=== PATIENT | female | born 1960 | race Caucasian/White ===

== ENCOUNTER 2016-08-28 13:58 | Inpatient (IN) | payer MEDICARE ==
[~2016-08-28] VITALS: Ht 152.4 cm; Wt 48.2 kg
--- NOTE | ~2016-08-28 | PR ---
[place], [place] PROGRESS NOTE NAME: [id number] UNIT #: [id number] ROOM: 425 DOCTOR: SONI RAZA MD,NINO BIRTHDATE: [birth year] DOS: 08/30/2016 PULMONARY FOLLOWUP SUBJECTIVE: The patient was n.p.o. past night and bronchoscopy planned for today. Continuous severe nonproductive cough, wheezing was noted with gradual reduction. Shortness of breath has been still noted, but partially decreased from previously. There was no chest pain. OBJECTIVE: VITAL SIGNS: Normal temperature, respiratory rate 19, heart rate 96, blood pressure 144/73. Pulse oxygen saturation on 6 L nasal cannula 98% saturation. HEENT: Shows no acute change. NECK: Supple. CARDIOVASCULAR: S1, S2 audible. LUNGS: Reduction of the breath sounds with expiratory wheezing was present as previously. ABDOMEN: Soft, nontender. LABORATORY DATA: There were no labs done today. IMPRESSION: 1. The patient with acute ongoing tracheobronchitis and chronic hypoxic respiratory failure, preop for bronchoscopy. 2. Chronic spastic paresis. 3. Chronic hypercapnic respiratory failure as well. PLAN OF TREATMENT: Continue the patient's current therapy plan as previously in progress. Other supportive plan and management to be continued. Usual care. Further treatment changes will be done after the bronchoscopy as necessary. NINO SHAFER MD CM:PNTRANS [id number] NINO RAZA MD 08/30/16 1244 interface
--- NOTE | ~2016-08-28 | PR ---
[place], [place] PROGRESS NOTE NAME: AZAR REYNOSO UNIT #: [id number] ROOM: 425 DOCTOR: SONI RAZA MD,NINO BIRTHDATE: [birth year] DOS: 09/03/2016 SUBJECTIVE: She has been noted comfortable at this time. Coughing has been subsiding. She was started on Bactrim-DS, which has been tolerated without any side effect. The sensitivity results of the strep pneumonia, which was reviewed. OBJECTIVE: VITAL SIGNS: Normal temperature, respirations 18, heart rate 93, blood pressure 121/87. The pulse oxygen saturation recorded on 6 liters nasal cannula 100% saturation. HEENT: Examination shows no acute change. NECK: Supple. CARDIOVASCULAR: S1, S2 is audible. LUNGS: Without any wheeze or crackles. ABDOMEN: Soft, nontender. IMPRESSION: 1. The patient with acute on chronic hypercapnic and hypoxic respiratory failure with exacerbation of chronic obstructive pulmonary disease and acute tracheobronchitis. 2. Strep pneumonia. PLAN OF TREATMENT: Discharge the patient with Bactrim-DS with tapering dose of prednisone and to resume her previous dose of prednisone ____ taken by the patient after completion of tapering prednisone. Outpatient assessment ____. NINO SHAFER MD CM:FANTATRANS [id number] [id number] NINO RAZA MD 09/03/16 1143 interface
--- NOTE | ~2016-08-28 | CON ---
[place], [place] REPORT OF CONSULTATION [id number] UNIT #: [id number] ROOM: 425 DOCTOR: SONI RAZA MDNINO BIRTHDATE: [birth year] DOS: 08/29/2016 PULMONARY CONSULTATION, EVALUATION AND MANAGEMENT CONSULTATION REQUESTED BY: Dr. Elidia Saleh. REASON FOR CONSULTATION: Assess the patient for ongoing acute respiratory complaints. HISTORY OF PRESENT ILLNESS: A 56-year-old white female known to me with a history of end-stage advanced centrilobular emphysema with chronic hypoxic and hypercapnic respiratory failure. The patient with recurrent hospitalizations. The patient contacted my office yesterday. The patient has been seen by the home health nursing staff and noted increased respiratory symptom. The symptom has been noted with increased coughing, chest congestion with wheezing as well as increase in the shortness of breath. The patient was also feeling quite a bit of rattling in the chest ____ secretions and inability to expectorate sputum. She came into the Emergency Room upon my advice as well. The patient has been assessed and hospitalized for medical management of acute exacerbation of COPD. She also noted malfunction of the electricity at home and the air conditioner not working for 12 hours or so and that has also made worsening of the respiratory symptoms. REVIEW OF SYSTEMS: CONSTITUTIONAL: Fatigue and tiredness noted. Denies symptoms of fever or chills. EYES: Denies burning, redness, tenderness. EAR, NOSE, THROAT: Denies sore throat, hoarseness, otalgia, postnasal drainage or epistaxis. CARDIOVASCULAR: Denies anginal pain, edema or pain of the lower extremities with palpitations. GASTROINTESTINAL: Denies dysphagia, nausea, vomiting, diarrhea, abdominal pain, hematemesis, melena, or hematochezia. GENITOURINARY: Denies dysuria, suprapubic pain, or hematuria. CENTRAL NERVOUS SYSTEM: History of chronic spastic paresis of the lower extremity with a waddling gait. There were no symptoms of seizures, tingling sensation or focal neurologic deficit. SKIN: Noted without any lesions, rashes or ulcers. Remaining systems were reviewed and they were noted all negative. PAST MEDICAL HISTORY: The patient was noted with history of: 1. Severe centrilobular emphysema. 2. Chronic hypoxic respiratory failure, use of oxygen 5 liters nasal cannula. 3. Chronic hypercapnic respiratory failure. 4. Uncomplicated severe persistent bronchial asthma. 5. Recurrent hospitalizations. 6. Chronic low BMI and muscle mass loss. 7. Migrainous headache. 8. Spastic paresis. [place], [place] REPORT OF CONSULTATION NAME: AZAR REYNOSO UNIT #: [id number] ROOM: 425 DOCTOR: SONI RAZA MD,NINO BIRTHDATE: [birth year] 9. Pneumothorax on the left side with left chest tube thoracostomy and chemical pleurodesis with current pneumothorax requiring VATS procedure and management with chemical pleurodesis, redone in 2014. 10. Restless legs syndrome. 11. Anxiety disorder. 12. Allergic rhinitis. 13. Osteoporosis. 14. History of deep venous thrombosis, which has been noted in June 2016, currently treated with chronic anticoagulation with Eliquis. 15. History of several compression fractures of the thoracic spine. 16. History of chronic prednisone dependency. PAST SURGICAL HISTORY: 1. Several bronchoscopies in the past. 2. Benign cyst removal from multiple parts of the body. 3. Chest tube thoracostomy on the left side. 4. VATS procedure with chemical pleurodesis for the patient with persistent air leak in 2014. 5. Past intubation and mechanical ventilation. 6. MediPort insertion. FAMILY HISTORY: The patient's mother at the age of 5757 years old with complication of COPD and emphysema. Father at the age of 7272 years old with complication of congestive heart failure. SOCIAL HISTORY: The patient is and lives at home. Smoking started at age of [age] years old, 2 pack of cigarettes per day that has been discontinued a few years ago. Denies history of alcohol use, illicit drug use or occupation-related pulmonary exposure. MEDICATIONS: This patient's current administered medications were noted as use of Eliquis, Fosamax, verapamil, Topamax, Daliresp, potassium chloride, Singulair, citalopram, vitamin D, Bumex, Incruse Ellipta, Breo Ellipta, omeprazole, Solu-Medrol intravenously, fluticasone nasal spray, albuterol sulfate with a nebulizer, oral prednisone 10 mg daily, IV doxycycline and other p.r.n. medication administration. DRUG ALLERGY HISTORY: 1. IMIPENEM. 2. CEFEPIME. PHYSICAL EXAMINATION: GENERAL: A 56-year-old white female, currently noted awake and alert without any distress. Height of 5 feet, weight of 106 pounds, BMI 20.7. VITAL SIGNS: Normal temperature, respirations 16-20, heart rate of 90-80, blood pressure 119/62 to 114/66. Pulse oxygen saturation on 6 L nasal cannula was 100% saturation. HEENT: Head was atraumatic. Eyes nonicteric. NECK: Supple. CARDIOVASCULAR: S1, S2 audible. [place], [place] REPORT OF CONSULTATION NAME: AZAR REYNOSO UNIT #: [id number] ROOM: 425 DOCTOR: SONI RAZA MD,NINO BIRTHDATE: [birth year] LUNGS: Noted with general reduction in breath sounds bilaterally with expiratory wheezing. There were no crackles. ABDOMEN: Flat, soft, nontender. EXTREMITIES: Loss of muscle mass. There was no edema, clubbing, cyanosis. CENTRAL NERVOUS SYSTEM: The patient was noted without any gross focal deficit. Chronic spastic paresis was noted. LABORATORY DATA: Chest x-ray, 2-views, was done in the Emergency Room yesterday, the patient was noted with changes of COPD with the chronic density and scarring of the left upper lobe remains unchanged. No acute additional abnormalities. CMP yesterday, glucose 128, BUN and creatinine normal. Remaining CMP was normal. CBC on 08/28/2016, hemoglobin 9.5, hematocrit 33.2, platelet count of 383,000. IMPRESSION: 1. Recurrent acute exacerbation of chronic obstructive pulmonary disease with acute tracheobronchitis. 2. Deep venous thrombosis of the lower extremity, on anticoagulation with Eliquis. 3. Chronic hypercapnic hypoxic respiratory failure, remains the same. 4. Acute tracheobronchitis. 5. Impacted mucus. The patient's airway was suspected because of severe nonproductive cough and chest congestion. 6. Chronic low body mass index as well. PLAN OF TREATMENT: Continue on noninvasive ventilator from the home. Continue current dose of steroids, bronchodilators and antibiotics. Therapeutic bronchoscopy planned to be done in the morning. Hold of Eliquis for bronchoscopy. Continuation of the other previous therapy and plan of management as in progress with usual care. Supportive care, other treatments as in progress. Chronic changes noted in the left upper lung with past surgical intervention for the management of pneumothorax and VATS procedure. Other supportive plan of therapy and care. Usual medical management. Thanks for allowing me to participate in the care of this patient. NINO SHAFER MD CM:CONSTR:REPORT OF CONSULTATION 1249 08/29/16 1451 interface
--- NOTE | ~2016-08-28 | PR ---
[place], [place] PROGRESS NOTE NAME: AZAR REYNOSO UNIT #: [id number] ROOM: 425 DOCTOR: DARCIE MULLIGAN MD BIRTHDATE: [birth year] DOS: 08/31/2016 SUBJECTIVE: The patient is still short of breath with improving. OBJECTIVE: VITAL SIGNS: Blood pressure 128/72, heart rate of 99 beats per minute, breathing 18 times per minute, temperature 98 degrees Fahrenheit. GENERAL: The patient is well developed and appropriate for usual state of health in no apparent distress. HEENT: Pupils equal, round, and reactive to light. EOMI. There is no scleral icterus. NECK: C-spine is soft and supple, there is no meningismus. There is no cervical lymphadenopathy. LUNGS: Chest congestion and expiratory wheezing all over in the lungs with decreased breath sounds. HEART: Regular rate and rhythm, no murmurs, clicks, rubs or gallops. ABDOMEN: Soft, nontender, nondistended. There are bowel sounds in all four quadrants. No rebound or guarding. EXTREMITIES: There is no peripheral cyanosis or edema. No focal swelling or erythema. NEUROLOGIC: The patient moves all four extremities with 5/5 strength. Cranial nerves II-XII are intact. Normal gait. Alert and oriented. SKIN: There is no apparent rash or petechiae. HEME/LYMPHATIC: There is no evidence of excessive bruising or lymphedema. PSYCHIATRIC: The patient does not appear anxious or depressed. IMPRESSION: 1. The patient with exacerbation of severe underlying chronic obstructive pulmonary disease, improving with corticosteroids, antibiotics and oxygen and Dr. Gibbons, the public safety dispatcher, is following her and considering a bronchoscopy to clear her airways and get good sputum specimens. 2. Chronic respiratory failure and oxygen dependence. 3. Generalized anxiety disorder. 4. Major depression, recurrent, mild. Patient takes Lexapro. 5. Postmenopausal osteoporosis. The patient on treatment. [place], [place] PROGRESS NOTE NAME: AZAR REYNOSO UNIT #: [id number] ROOM: 425 DOCTOR: DARCIE MULLIGAN MD BIRTHDATE: [birth year] DARCIE MULLIGAN MD CM:PNTRANS [id number] DARCIE MULLIGAN MD 09/01/16 0242 interface
--- NOTE | ~2016-08-28 | PR ---
[place], [place] PROGRESS NOTE [id number] UNIT #: [id number] ROOM: 425 DOCTOR: GENEVA MCKNIGHT MD BIRTHDATE: [birth year] DOS: SUBJECTIVE: The patient is doing fine without any complaints this morning, other than aches and pains. Dr. Gibbons has scheduled her for a bronchoscopy this morning. OBJECTIVE: VITAL SIGNS: Graphic trend shows pressure 125/82, pulse of 86, respirations 20, temperature 97.8. LUNGS: Diminished breath sounds, a few scattered wheezes heard this morning. HEART: Regular. ABDOMEN: Obese. EXTREMITIES: Without any edema. ASSESSMENT AND PLAN: 1. Acute exacerbation of chronic obstructive pulmonary disease, improving very slowly. 2. Acute tracheobronchitis. Dr. Gibbons plans to do a bronchoscopy, should help with the identification of bacteria. 3. Spastic paresis. The patient requested pain medications. Since she is n.p.o., I dose of Dilaudid will be given today. GENEVA MCKNIGHT MD CM:PNTRANS [phone] GENEVA MCKNIGHT MD 08/30/162235 interface
--- NOTE | ~2016-08-28 | PR ---
[place], [place] PROGRESS NOTE NAME: AZAR REYNOSO UNIT #: [id number] ROOM: 425 DOCTOR: SONI RAZA MD,NINO BIRTHDATE: [birth year] DOS: 09/02/2016 SUBJECTIVE: She has been continued with current plan of treatment at this time without any changes. Denies symptoms of chest pain or abdominal pain, chest congestion. Cough has been noted at times and productive sometimes. Denies symptoms of chest pain. Shortness of breath and wheezing were noted decreased. OBJECTIVE: VITAL SIGNS: Normal temperature, respiratory rate 18, heart rate 92, blood pressure 120/60 to 107/75. Pulse ox saturation on 6 L nasal cannula 98% saturation. HEENT: Examination shows head was atraumatic. Eyes nonicterus. NECK: Supple. CARDIOVASCULAR: S1, S2 audible. LUNGS: Noted with question of wheezing, no crackles. ABDOMEN: Soft, nontender. LABORATORY DATA: Culture of the bronchial washing was noted essentially with findings of strep pneumonia, heavy growth was noted, pansensitive species. IMPRESSION: The patient with acute on chronic hypercapnic hypoxic respiratory failure. The patient with acute exacerbation of chronic obstructive pulmonary disease and acute bacterial bronchitis, strep pneumonia. PLAN OF TREATMENT: Discontinuation of the vancomycin and doxycycline. Start the patient on Bactrim-DS for the medical management of current tracheobronchitis. Also, reduce the dose of Solu-Medrol from today to 30 mg as the b.i.d. dosing. Other supportive therapy, plan and management for the patient as well. Usual care. Further treatment changes will be done based on the progression of the illness. NINO SHAFER MD CM:PNTRANS [phone] NINO RAZA MD 09/02/16 1345 interface
--- NOTE | ~2016-08-28 | PR ---
[place], [place] PROGRESS NOTE NAME: AZAR REYNOSO UNIT #: [id number] ROOM: 425 DOCTOR: SONI RAZA MD,NINO BIRTHDATE: [birth year] DOS: 08/31/2016 SUBJECTIVE: She has a bronchoscopy done yesterday with reduction in symptoms of cough, shortness of breath and wheezing. However, still noted with mild cough for this patient at this time. The shortness of breath and wheezing were noted to decrease. There were no symptoms of chest pain. She was continued on intravenous steroids as well. OBJECTIVE: VITAL SIGNS: For the patient, which has been recorded shows the temperature as normal. Respiratory rate recorded as 18, heart rate of 100, blood pressure 149/87. Pulse oxygen saturation on 6 liters cannula 96-99% saturation recorded. HEENT: Shows no acute change. NECK: Supple. CARDIOVASCULAR: S1, S2 audible. LUNGS: Noted with general reduction of the breath sounds and mild expiratory wheezing. ABDOMEN: Soft, nontender. LABORATORY DATA: Gram stain bronchial washings yesterday, many white blood cells, moderate epithelial cells, many gram-positive cocci in pairs, few gram-positive cocci in chains and moderate gram-positive bacilli. Preliminary culture of the bronchial washing for the patient 24 hours noted normal sari. IMPRESSION: 1. Acute exacerbation of chronic obstructive pulmonary disease with acute tracheobronchitis was noted. 2. Chronic spastic paresis. PLAN OF TREATMENT: Monitor culture results of the bronchial washing. Continue corticosteroids, bronchodilators, antibiotics, and anticoagulation. NINO SHAFER MD CM:PNTRANS [id number] NINO RAZA MD 09/01/16 0040 interface
--- NOTE | ~2016-08-28 | PR ---
[place], [place] PROGRESS NOTE NAME: AZAR REYNOSO UNIT #: [id number] ROOM: 425 DOCTOR: NINO CAR MD BIRTHDATE: [birth year] DOS: 09/01/2016 PULMONARY FOLLOWUP SUBJECTIVE: She has been noted comfortable at this time with the reduction of the respiratory complaints. The patient denies symptoms of chest pain or abdominal pain. Continue intravenous antibiotics. Heavy growth of strep pneumonia for this patient was noted for this patient in the bronchial washings. OBJECTIVE: VITAL SIGNS: The patient showed normal temperature, respiratory rate 18, heart rate 109, blood pressure 138/84. Pulse oxygen saturation on 6 liters nasal cannula 99% saturation recorded. HEENT: Shows no acute change. NECK: Supple. CARDIOVASCULAR: S1, S2 audible. LUNGS: The patient was noted with moderate reduction of the breath sounds bilaterally with mild expiratory wheezing. ABDOMEN: Soft, nontender. LABORATORY DATA: Culture of the bronchial washing noted heavy growth of strep pneumonia for this patient with pending sensitivity results. IMPRESSION: 1. The patient with ongoing acute severe tracheobronchitis status post bronchoscopy strep pneumonia. 2. History of chronic hypoxic respiratory failure, remains on the oxygen supplementation. PLAN OF TREATMENT: No changes in the plan of management at this time. The patient is already getting intravenous steroids as well as the doxycycline. I will add on the vancomycin until the sensitivity results will be available. Supportive therapy, plan of management. Usual care. [place], [place] PROGRESS NOTE NAME: AZAR REYNOSO UNIT #: [id number] ROOM: 425 DOCTOR: NINO CAR MD BIRTHDATE: [birth year] NINO SHAFER MD CM:PNTRANS [phone] 24 NINO RAZA MD 09/01/162223 interface
--- NOTE | ~2016-08-28 | WRIGHTHP ---
[place], [place] PATIENT HISTORY AND PHYSICAL EXAM NAME: AZAR REYNOSO [facility] #: [id number] UNIT #: [id number] ROOM: 425 DOCTOR: GENEVA MCKNIGHT MD BIRTHDATE: [birth year] DOS: 08/29/2016 HISTORY OF PRESENT ILLNESS: The patient is 56 years old. The patient is complaining of shortness of breath. The visiting nurses arrived at the house today. She was noted to have increasing shortness of breath informed Dr. Gibbons who advised the patient to be sent to the Emergency Room for evaluation. The patient said that she has had increasing shortness of breath that lasted 4-5 days, has a slight cough, but unable to cough up any mucus, does not have any fever or chills. Does not have any chest pains, palpitations or leg edema. PAST MEDICAL HISTORY: Significant for, 1. Spastic paraparesis with chronic pain. 2. Chronic respiratory failure, oxygen dependent. 3. Chronic obstructive lung disease. 4. Generalized anxiety disorder. MEDICATIONS: She is on are incruse Ellipta, Breo Ellipta, albuterol, fluticasone, Tylenol 650 q. 6, Fosamax 70 once weekly, Xanax 0.5 t.i.d., Eliquis 5 daily, Bumex 1.5 daily, vitamin D 5000 units daily, Flexeril 10 b.i.d., Lexapro 20 daily, Levaquin 500 daily, Singulair 10 daily, morphine 5 q.4 hours p.r.n., omeprazole 20 daily, MiraLax 17 grams daily, potassium 20 daily, prednisone 10 mg daily, Daliresp 500 mcg daily, ReQuip 0.25 at bedtime, Topamax 25 daily and verapamil 120 daily. SOCIAL HISTORY: Nonsmoker. She lives at home with her . PHYSICAL EXAMINATION: GENERAL: She is awake, alert and oriented. VITAL SIGNS: Blood pressure is 118/62, pulse of 95, respirations 20, temperature 98.2. LUNGS: Diminished breath sounds. HEART: Regular. ABDOMEN: Obese, soft, nontender. EXTREMITIES: Trace edema noticed bilaterally. ASSESSMENT AND PLAN: 1. Acute exacerbation of chronic obstructive pulmonary disease. The patient is placed on IV steroids and antibiotics. Dr. Gibbons has been consulted. 2. Acute tracheobronchitis. Antibiotics have been ordered. Dr. Gibbons to make the decision on bronchoscopy. 3. Spastic with chronic pain, controlled, pain medications to be ordered p.r.n. [place], [place] PATIENT HISTORY AND PHYSICAL EXAM NAME: AZAR REYNOSO UNIT #: [id number] ROOM: 425 DOCTOR: GENEVA MCKNIGHT MD BIRTHDATE: [birth year] GENEVA MCKNIGHT MD CM:HISPHYS:PATIENT HISTORY AND PHYSICAL EXAMINATION 1346 1555 GENEVA MCKNIGHT MD 08/29/16 1553 interface
--- NOTE | ~2016-08-28 | DS ---
[place], [place] DISCHARGE SUMMARY [id number] UNIT #: [id number] ROOM: 425 DOCTOR: GENEVA MCKNIGHT MD BIRTHDATE: [birth year] DOS: 09/03/2016 DIAGNOSES: 1. Acute tracheobronchitis. 2. Acute exacerbation of chronic obstructive pulmonary disease. 3. Bronchoscopy with strep pneumonia in the sputum. 4. Spastic paraparesis. 5. Chronic pain. 6. Chronic respiratory failure, oxygen dependent. 7. Generalized anxiety disorder. MEDICATIONS: Same as on admission. New prescriptions given were Bactrim DS twice daily for 7 days and tapering dose of prednisone. HOSPITAL COURSE: This patient is very well known to us, comes in with complaints of difficulty breathing. The patient was advised by Dr. Gibbons to come to the emergency room. Upon admission, the patient was evaluated in the ER, was admitted. After admission, the patient was placed on IV steroids, antibiotics, breathing treatments and her home medications. She underwent the bronchoscopy. Bronchoscopy showed strep pneumoniae for which the patient was placed on Bactrim. The patient is not having any other new problems, so plan is to discharge her to home today. Follow up with Dr. Gibbons as an outpatient. GENEVA MCKNIGHT MD CM:HENRY [id number] GENEVA MCKNIGHT MD 09/03/16 1017 interface
--- NOTE | ~2016-08-28 | PR ---
[place], [place] PROGRESS NOTE NAME: AZAR REYNOSO UNIT #: [id number] ROOM: 425 DOCTOR: GENEVA MCKNIGHT MD BIRTHDATE: [birth year] DOS: SUBJECTIVE: The patient feels really good and is not having any complaints. OBJECTIVE: VITAL SIGNS: Graphic trend shows a pressure 120/70, pulse of 96, respirations 20, temperature 97.8. LUNGS: Clear. HEART: Regular. ABDOMEN: Soft. EXTREMITIES: Without any edema. ASSESSMENT AND PLAN: 1. Acute tracheobronchitis, improving. 2. Bronchoscopy showing strep pneumoniae for which Bactrim-DS was started. The patient is stable and can be discharged to home today to be followed up with Dr. Gibbons as an outpatient. GENEVA MCKNIGHT MD CM:PNRUBÉN [id number] GENEVA MCKNIGHT MD 09/03/16 0945 interface
--- NOTE | ~2016-08-28 | PR ---
[place], [place] PROGRESS NOTE [id number] UNIT #: [id number] ROOM: 425 DOCTOR: DARCIE MULLIGAN MD BIRTHDATE: [birth year] DOS: 09/01/2016 SUBJECTIVE: The patient continues to be short of breath. PHYSICAL EXAMINATION: VITAL SIGNS: Blood pressure 120/79, heart rate 100 beats per minute, breathing 18 times per minute, temperature 98 degrees Fahrenheit. IMPRESSION: 1. Acute exacerbation of chronic obstructive pulmonary disease and tracheobronchitis, continues to be treated with antibiotics. The patient on doxycycline and vancomycin. 2. Sputum cultures growing Streptococcus pneumoniae. 3. The patient is status post bronchoscopy. 4. Acute over chronic respiratory failure and oxygen dependence and end-stage lung disease. 5. Generalized anxiety disorder, being treated and controlled. 6. Major depression, recurrent, mild being treated with Lexapro. 7. Postmenopausal osteoporosis, to be followed and treated. DARCIE MULLIGAN MD CM:PNTRANS [phone] 17 DARCIE MULLIGAN MD 09/01/16 2217 interface
--- NOTE | ~2016-08-28 | PR ---
[place], [place] PROGRESS NOTE NAME: [facility]O [facility] [id number] UNIT #: [id number] ROOM: 425 DOCTOR: GENEVA MCKNIGHT MD BIRTHDATE: [birth year] DOS: 09/02/2016 SUBJECTIVE: The patient is sleeping in her bed, did wake up community health consultant, does not have any complaints today. Cough and shortness of breath has improved. OBJECTIVE: VITAL SIGNS: Graphic trend shows that she is afebrile. Blood pressure is 107/75, pulse of 96, respirations 18, temperature 97.6. LUNGS: Diminished breath sounds, but clear. HEART: Regular. ABDOMEN: Soft, scaphoid. EXTREMITIES: Without any edema. LABORATORY DATA: Cultures, bronch cultures, final is no bacterial growth. ASSESSMENT AND PLAN: 1. Acute exacerbation of chronic obstructive pulmonary disease, improving. 2. Acute tracheobronchitis, status post bronchoscopy. So far, the cultures are showing Strep pneumoniae, which we could change to Levaquin and discharged to home. I am waiting for Dr. Gibbons's opinion. No sensitivities are available yet, so once we have that, should be able to discharge the patient to home. GENEVA MCKNIGHT MD CM:PNTRANS [id number] GENEVA MCKNIGHT MD 09/02/16 1309 interface
--- NOTE | ~2016-08-28 | PROC NOTE ---
[place], [place] PROCEDURE NOTE NAME: AZAR REYNOSO UNIT #: [id number] ROOM: 425 DOCTOR: SONI RAZA MD,NINO BIRTHDATE: [birth year] DOS: 08/30/2016 PROCEDURE: Fiberoptic bronchoscopy. PREOPERATIVE DIAGNOSIS: The patient with persistent nonresolving cough, which has been noted severe. POSTOPERATIVE DIAGNOSIS: Evidence of tracheobronchitis with moderate impaction of the mucus plugs in the endobronchial tree bilaterally. PROCEDURE DESCRIPTION: Informed consent obtained from the patient. The patient was brought to the OR and placed in supine position. Conscious sedation was administered by the Anesthesia Department. After achieving appropriate sedation, airway introduced into the mouth. Bronchoscope advanced into the airway into laryngeal area. Epiglottis and vocal cords were seen. Bronchoscope advanced to the vocal cord and tracheal lumen. Tracheal lumen was noted with moderate amount of thick mucopurulent secretions, which was suctioned out to the sammy level. Right upper, right middle, right lower, left upper, lingular lower lobe bronchi were all examined. Noted mild to moderate infection because of thick mucus. All the secretions suctioned out with the help of normal saline wash and sent for culture. FINDINGS: Acute tracheobronchitis also noted. Postoperative findings will be discussed with the patient once the patient recovers from the effects of acute sedation. NINO SHAFER MD CM:PROCNOTE:PROCEDURE NOTE [id number] NINO RAZA MD
[~2016-08-28 13:58] MED LIST: ADVAIR 250/501 EA INH; ALBUTEROL SULF0.5 M1 NEB; ALBUTEROL0.09 MG/A2 IH; ALBUTEROL2.5 MG/0.5 INH; ALENDRONATE SOD70 M1 PO; AMBIEN5 MG PO; BREO ELLIPTA 11 EACH IH; BREO ELLIPTA 21 EACH IH; CATAPRES-TTS 10.1 MG PO; CELEBREX200 MG PO; CHOLESTEROL PILL; CIPRO500 MG PO; COLACE100 MG PO; COREG3.125 MG PO; CYCLOBENZAPRINE10 MG PO; Clotrimazole Tr10 MG PO; DALI500T PO; DALIRESP500 MC1 PO; DELTASONE10 MG; DELTASONE2.5 M1 PO; DELTASONE20 MG PO; DOXYCYCLINE MO100 M1 PO; DOXYCYCLINE100 M2 PO; DOXYCYCLINE100 M3 PO; DUONEB 3 MG/3 ML3 M1 INH; EXEL13.31 T; FLEXERIL10 MG PO; FLONASE0.05 MG/AC NS; FLOVENT DI50 MCG/ACT IH; FLUTICASON0.05 MG/AC NAS; FOSAMAX70 M1 PO; FOSAMAX70 MG PO; HUMALOG100 UNIT/1 SC; INCRUSE EL62.5 MCG/A IH; LANTUS SOLOS100 U/M1 SC; LEVAQUIN500 M2 PO; LEXAPRO20 MG PO; LIDODERM 5% PATC1 EA TD; LINZESS145 MC1 PO; MIRALAX17 GM PO; MIRALAX17 GM/DOSE PO; MONTELUKAST SOD10 MG PO; NASAL SPRAY30 ML NS; NASAL SPRAY44 ML NS; NEXIUM40 MG PO; NOVAPLUS SOLU-M40 MG IV; OMEPRAZOLE D/R20 MG PO; OMEPRAZOLE20 M2 PO; OXYGEN; PLAVIX75 M1 PO; PREDNICOT10 MG PO; PREDNISONE10 MG PO; PREDNISONE20 MG PO; PREDNISONE5 MG PO; PROAIR HFA0.09 MG/AC IH; REQUIP0.5 MG PO; ROBAXIN750 MG PO; ROPINIROLE HYDRO1 MG PO; SINGULAIR10 M1 PO; SINGULAIR10 MG PO; SPIRIVA18 MCG IH; TOPAMAX25 MG PO; TOPAMAX50 MG PO; TRAMADOL HCL50 MG PO; TYLENOL EXTRA500 M2 PO; TYLENOL EXTRA500 MG PO; VENTOLIN H0.09 MG/AC INH; VIBRAMYCIN100 MG PO; VICODIN 5/500 505 MG PO; VITAMIN C500 M1 PO; VITAMIN D350000 UNIT PO; VITAMIN D50000 I3 PO; XANAX0.25 MG PO; ZITHROMAX250 MG PO; ZOCOR10 MG PO; ZOCOR40 MG PO; ZOLPIDEM5 MG PO; [UNRECOGNIZED DRUG - OTHER] PO
[2016-08-28] MEDS ORDERED: ELIQUIS5 M1 PO (14:17)
[2016-08-28 14:19] VITALS: BP 137/77
[2016-08-28 14:57] LABS: BASO % 0.2 % (0.0-1.0); EOS % 0.2 % (1.0-4.0); HEMATOCRIT 33.2 % (37.0-47.0); HEMOGLOBIN 9.5 g/dl (12.0-16.0); IG # 0.1 10*3/uL (0.0-0.1); LYMPH # 0.9 10*3/uL (1.3-4.4); LYMPH % 9.5 % (27.0-41.0); MEAN CELL VOLUME 81.6 fl (81.0-99.0); MEAN CORPUSCULAR HGB 23.3 pg (27.0-31.0); MEAN CORPUSCULAR HGB CONC 28.6 g/dl (33.0-37.0); MEAN PLATELET VOLUME 10.1 fl (9.6-12.3); MONO # 0.4 10*3/uL (0.1-1.0); MONO % 4.6 % (3.0-9.0); NEUT # 8.2 10*3/uL (2.3-7.9); NEUT % 84.6 % (47.0-73.0); PLATELET COUNT AUTOMATED 383 10*3/uL (130-400); RED BLOOD COUNT 4.07 10*6/uL (4.10-5.10); RED CELL DISTRI WIDTH 17.6 % (0-14.5); WHITE BLOOD COUNT 9.6 10*3/uL (4.8-10.8)
[2016-08-28 15:15] LABS: ALBUMIN 3.4 gm/dl (3.1-4.5); ALKALINE PHOSPHATASE 57 U/L (45-117); BILIRUBIN, TOTAL 0.1 mg/dl (0.2-1.0); BUN 12 mg/dl (7-24); CARBON DIOXIDE 28 mmol/L (21-32); CHLORIDE 105 mmol/L (98-107); EST GLOM FILT AFRICAN AMERICAN > 60 ml/min; GLUCOSE 128 mg/dL (65-99); POTASSIUM 4.4 mmol/L (3.5-5.1); SGOT/AST 23 IU/L (3-35); SGPT/ALT 16 U/L (12-78); SODIUM 144 mmol/L (136-145)
[2016-08-28 15:17] LABS: TROPONIN I < 0.015 ng/ml (<0.045)
[2016-08-28 16:00] VITALS: BP 154/83
[2016-08-28 17:43] VITALS: BP 154/83
[2016-08-28] MEDS ORDERED: BUMEX2.5 MG/10 PO (18:16)
[2016-08-28] MEDS ORDERED: PREDNISONE5 MG PO (18:17)
[2016-08-28] MEDS ORDERED: MORPHINE S10 MG/5 M1 PO (18:19)
[2016-08-28] MEDS ORDERED: TYLENOL325 M2 PO (18:20)
[2016-08-28] MEDS ORDERED: POTASSIUM CHLO20 ME3 PO (18:21)
[2016-08-28] MEDS ORDERED: VERAPAMIL SR120 MG PO (18:22)
[2016-08-28] MEDS ORDERED: DALI500T PO (18:22)
[2016-08-28] MEDS ORDERED: LEVAQUIN500 M2 PO (18:23)
[2016-08-28] MEDS ORDERED: VITAMIN D1000 IU PO (18:23)
[2016-08-28] MEDS ORDERED: ALPRAZOLAM1 M2 PO (18:29)
[2016-08-28 20:00] VITALS: BP 131/65
[2016-08-29] VITALS: BP 119/62
[2016-08-29 04:00] VITALS: BP 108/64
[2016-08-29 08:00] VITALS: BP 114/66
[2016-08-29 12:00] VITALS: BP 118/62
[2016-08-29 16:07] VITALS: BP 112/68
[2016-08-29 20:00] VITALS: BP 113/54
[2016-08-30] VITALS (10 sets, daily range): BP systolic 98–144; BP diastolic 55–82
[2016-08-31] VITALS: BP 104/62
[2016-08-31 08:00] VITALS: BP 126/71; BP 126/72
[2016-08-31 12:00] VITALS: BP 149/87
[2016-08-31 15:05] LABS: ACID FAST SPEC PROCESSING Concentration (.)
[2016-08-31 16:00] VITALS: BP 128/72
[2016-08-31 20:00] VITALS: BP 157/87
[2016-09-01] VITALS: BP 134/76
[2016-09-01 08:00] VITALS: BP 138/84
[2016-09-01 12:00] VITALS: BP 120/79
[2016-09-01 16:00] VITALS: BP 144/71
[2016-09-01 20:00] VITALS: BP 127/73
[2016-09-02] VITALS: BP 107/75
[2016-09-02 08:00] VITALS: BP 128/60; BP 134/78
[2016-09-02 12:00] VITALS: BP 143/90
[2016-09-02 16:00] VITALS: BP 106/74
[2016-09-02 20:00] VITALS: BP 134/81
[2016-09-03] VITALS: BP 125/77
[2016-09-03 08:00] VITALS: BP 131/87
[2016-09-03] MEDS ORDERED: PREDNISONE5 MG PO (08:00)
[2016-09-03] MEDS ORDERED: BACTRIM DS 8001 TA1 PO (08:00)
== END 2016-09-03 10:45 | disposition home health service (06) | DRG 189 ==
LOC: ED 13:58 → 4E 16:02 → EDHOLD 16:02 → 4E 16:28
PROVIDERS: Internal Medicine; Internal Medicine Critical Care Medicine; Physician Assistant
PROC: 0BC88ZZ Extirpation of Matter from Left Upper Lobe Bronchus, Via Natural or Artificial Opening Endoscopic (ICD-10-PCS; principal; 2016-08-30)
PROC: 0BC18ZZ Extirpation of Matter from Trachea, Via Natural or Artificial Opening Endoscopic (ICD-10-PCS; principal; 2016-08-30)
PROC: 0BC58ZZ Extirpation of Matter from Right Middle Lobe Bronchus, Via Natural or Artificial Opening Endoscopic (ICD-10-PCS; principal; 2016-08-30)
PROC: 0BC68ZZ Extirpation of Matter from Right Lower Lobe Bronchus, Via Natural or Artificial Opening Endoscopic (ICD-10-PCS; principal; 2016-08-30)
PROC: 0BC48ZZ Extirpation of Matter from Right Upper Lobe Bronchus, Via Natural or Artificial Opening Endoscopic (ICD-10-PCS; principal; 2016-08-30)
PROC: 0BCB8ZZ Extirpation of Matter from Left Lower Lobe Bronchus, Via Natural or Artificial Opening Endoscopic (ICD-10-PCS; principal; 2016-08-30)
PROC: 0BC98ZZ Extirpation of Matter from Lingula Bronchus, Via Natural or Artificial Opening Endoscopic (ICD-10-PCS; principal; 2016-08-30)
PROC: 0BC28ZZ Extirpation of Matter from Carina, Via Natural or Artificial Opening Endoscopic (ICD-10-PCS; principal; 2016-08-30)
DX: J96.21 Acute and chronic respiratory failure with hypoxia (principal); T17.890A Other foreign object in other parts of respiratory tract causing asphyxiation, initial encounter; I82.409 Acute embolism and thrombosis of unspecified deep veins of unspecified lower extremity; Z99.81 Dependence on supplemental oxygen; J44.1 Chronic obstructive pulmonary disease with (acute) exacerbation; J44.0 Chronic obstructive pulmonary disease with (acute) lower respiratory infection; J96.22 Acute and chronic respiratory failure with hypercapnia; J20.9 Acute bronchitis, unspecified; G89.29 Other chronic pain; F41.1 Generalized anxiety disorder; F17.210 Nicotine dependence, cigarettes, uncomplicated; B95.3 Streptococcus pneumoniae as the cause of diseases classified elsewhere; X58.XXXA Exposure to other specified factors, initial encounter; G83.9 Paralytic syndrome, unspecified; G25.81 Restless legs syndrome; M81.0 Age-related osteoporosis without current pathological fracture; Z88.1 Allergy status to other antibiotic agents; Z88.8 Allergy status to other drugs, medicaments and biological substances; Z82.5 Family history of asthma and other chronic lower respiratory diseases; Z82.49 Family history of ischemic heart disease and other diseases of the circulatory system; Z79.01 Long term (current) use of anticoagulants; Y93.89 Activity, other specified; Y92.89 Other specified places as the place of occurrence of the external cause; Y99.8 Other external cause status

== ENCOUNTER 2017-03-19 10:50 | Inpatient (IN) | payer MEDICARE ==
[~2017-03-19] VITALS: Ht 152 cm; Wt 48.0 kg
--- NOTE | ~2017-03-19 | PROC NOTE ---
[place], [place] PROCEDURE NOTE [facility]: [id number] UNIT #: [id number] ROOM: 512 DOCTOR: SONI RAZA MD,NINO BIRTHDATE: [birth year] DOS: 03/24/2017 PROCEDURE: Bronchoscopy. PREOPERATIVE DIAGNOSIS: Severe ineffective cough where the patient cannot expectorate sputum. POSTOPERATIVE DIAGNOSES: Severe ineffective cough where the patient cannot expectorate sputum with severe impaction of the mucus plug and endobronchial tree bilaterally. There were no endobronchial obstructive lesions noted. COMPLICATIONS: None. BLOOD LOSS: No blood loss. PROCEDURE DESCRIPTION: Informed consent obtained for the patient. She was brought to the OR and placed in supine position. Conscious sedation administered by the Anesthesia Department. After achieving proper sedation, airway introduced into the mouth. Bronchoscope advanced to the airway into the laryngeal area. Epiglottis and vocal cords were seen. The bronchoscope advanced to the vocal cord into tracheal lumen. The tracheal lumen was identified. The vocal cord was noted yellowish in color moving symmetrically with the movements. The tracheal lumen noted with a large amount of thick mucus secretion for patient in the endobronchial tree for this patient, which was suctioned out to the lesvia level. Lesvia noted sharp. Right upper, right middle, right lower, left upper, lingular lower lobe bronchus for the patient all examined. Very thick large plugs of the mucus were present in the endobronchial tree bilaterally without any obstructive lesions. All secretions suctioned out. The patient is sent for cultures. Procedure was well tolerated by the patient without any difficulty. Postoperative finding will be discussed. Once the patient recovered the effects of acute sedation. Based on the bronchoscopy, no change in treatment at this time will be needed. NINO SHAFER MD CM:PROCNOTE:PROCEDURE NOTE [id number] NINO RAZA MD
--- NOTE | ~2017-03-19 | PR ---
[place], [place] PROGRESS NOTE NAME: [facility] [id number] UNIT #: [id number] ROOM: 512 DOCTOR: GENEVA MCKNIGHT MD BIRTHDATE: [birth year] DOS: SUBJECTIVE: The patient is complaining of a lot of back pain. She also has quite a lot of shortness of breath. PHYSICAL EXAMINATION: VITAL SIGNS: Blood pressure is 137/85, pulse of 63, respirations 18, temperature 97.7. LUNGS: Clear. HEART: Regular. ABDOMEN: Soft. EXTREMITIES: Without any edema. BACK: Pain throughout her back, tenderness throughout her back. ASSESSMENT AND PLAN: 1. Acute back pain with compression fracture, superior endplate of T12. Discussed with Dr. Garcia. He will see the patient today and possibly schedule her for a vertebroplasty on Friday. We will keep the Eliquis on hold. 2. Acute exacerbation of chronic obstructive pulmonary disease with spastic paresis with chronic respiratory failure, followed by Dr. Gibbons. BiPAP has been ordered, on maximal treatment plan. GENEVA MCKNIGHT MD CM:PNTRANS [id number] GENEVA MCKNIGHT MD 03/21/17 0938 interface
--- NOTE | ~2017-03-19 | PR ---
[place], [place] PROGRESS NOTE [facility]: [facility] [id number] UNIT #: [id number] ROOM: 512 DOCTOR: GENEVA MCKNIGHT MD BIRTHDATE: [birth year] DOS: SUBJECTIVE: The patient is doing fine without any complaints. Her back pain is much better after the vertebroplasty was done. OBJECTIVE: VITAL SIGNS: Graphic trend shows pressure 154/81, pulse of 72, respirations 18, temperature 97.9. LUNGS: Diminished breath sounds. Scattered wheezes heard bilaterally. HEART: Regular. ABDOMEN: Obese. EXTREMITIES: Without any edema. ASSESSMENT AND PLAN: 1. T8 compression fracture, status post vertebroplasty with improvement in the back pain. 2. Acute exacerbation of chronic obstructive pulmonary disease, on maximal treatment plan. 3. Acute tracheobronchitis, status post bronchoscopy. Bronch cultures so far show normal sari. The patient has significant bronchospasm this morning. He is already on IV steroids, may need a long-term care placement if the bronchospasm does not improve quickly. GENEVA MCKNIGHT MD CM:PNTRANS [phone] GENEVA MCKNIGHT MD 03/25/17 0958 interface
--- NOTE | ~2017-03-19 | PR ---
[place], [place] PROGRESS NOTE NAME: AZAR REYNOSO UNIT #: [id number] ROOM: 512 DOCTOR: NINO CAR MD BIRTHDATE: [birth year] DOS: 03/23/2017 PULMONARY FOLLOWUP SUBJECTIVE: The patient has been noted without any acute respiratory distress at this time. Has not been noted any ongoing acute new respiratory complaints. Continue having symptoms of coughing, chest congestion, inability to expectorate sputum, shortness breath, wheezing remains the same unchanged from yesterday. OBJECTIVE: VITAL SIGNS: Normal temperature, respiratory rate 18, heart rate 90, blood pressure 136/63. Pulse oxygen saturation on 6 liters canula 97% saturation. BiPAP with the same. HEENT: No new change. CARDIOVASCULAR: S1, S2 audible. LUNGS: Moderate decreased breath sounds, expiratory wheezing, no crackles. ABDOMEN: Soft, nontender. Bowel sounds present. EXTREMITIES: The patient was noted without any edema, clubbing or cyanosis. MUSCULOSKELETAL: Shows chronic changes with some kyphosis of the thoracic spine. There were no other deformities. SKIN: Visible skin. No lesions or rashes. GENITOURINARY: Unchanged without any focal. CENTRAL NERVOUS SYSTEM: Unchanged without any focal deficit. LABORATORY DATA: Chest x-ray was described suspicion pulmonary nodule in the lungs with previous parenchymal scarring. IMPRESSION: 1. Questionable nodule in the lungs. The patient was noted with ongoing acute exacerbation of chronic obstructive pulmonary disease and acute bronchitis. 2. Compression fracture of the thoracic spine with severe osteoporosis. 3. Chronic steroid dependency. PLAN OF TREATMENT: Proceed with bronchoscopy that will be done tomorrow morning for further assessment ongoing severe nonproductive cough. Continue the BiPAP for medical and acute chronic hypoxic respiratory failure, observation current chest x-ray may consider doing CT scan of the chest later on. Additional treatment changes to be done based on progression of the illness. Other supportive plan of management and other therapy and care. Risk and benefits have been already and distal the patient for bronchoscopy in the morning. No changes. Use of the steroids and antibiotic or other medications will be necessary. [place], [place] PROGRESS NOTE NAME: AZAR REYNOSO UNIT #: [id number] ROOM: 512 DOCTOR: NINO CAR MD BIRTHDATE: [birth year] NINO SHAFER MD CM:MARIEL 1748 NINO RAZA MD 03/24/17 0206 interface
--- NOTE | ~2017-03-19 | WRIGHTHP ---
[place], [place] PATIENT HISTORY AND PHYSICAL EXAM NAME: AZAR REYNOSO [facility] #: [id number] UNIT #: [id number] ROOM: 512 DOCTOR: GENEVA MCKNIGHT MD BIRTHDATE: [birth year] DOS: 03/19/2017 HISTORY OF PRESENT ILLNESS: The patient is very well known to us, developed severe acute back pain 2 days ago along with increasing shortness of breath and cough, so decided to come into the Emergency Room where she was evaluated and was admitted. This morning, she has a lot of pain in her back. She denies having any radiation of pain into the legs. Denies having any chest pains or palpitations. She has been taking all her medications regularly. PAST MEDICAL HISTORY: Significant for: 1. Postmenopausal osteoporosis. 2. Benign hypertension. 3. Chronic back pain. 4. COPD. 5. Adult failure to thrive. 6. Spastic paraparesis. 7. Chronic respiratory failure, oxygen dependent. 8. Generalized anxiety disorder. MEDICATIONS: She is currently on are Breo Ellipta, Incruse Ellipta, Ventolin, fluticasone, Tylenol, alendronate, Xanax, Eliquis, Bumex, cyclobenzaprine, vitamin D, diltiazem, Lexapro, montelukast, morphine, omeprazole, potassium, prednisone, Daliresp, Requip, Topamax, verapamil. SOCIAL HISTORY: Nonsmoker, does not use any alcohol. PHYSICAL EXAMINATION: GENERAL: The patient is awake and alert and oriented. VITAL SIGNS: Graphic trend shows that she is afebrile, blood pressure is 135/90, pulse of 80, respirations 18, temperature 98.1. LUNGS: Diminished breath sounds. CARDIOVASCULAR: Regular. ABDOMEN: Soft, nontender. EXTREMITIES: Without any edema. LABORATORY DATA: Lactic acid is normal. Chest x-ray shows compression fractures of the T7, T10 and T11 with osteoporosis. White cell count is 12.5, hemoglobin and hematocrit were normal. Comprehensive normal. ASSESSMENT AND PLAN: 1. Acute exacerbation of chronic obstructive pulmonary disease. IV steroids have been added. 2. Acute tracheobronchitis with elevated white cell count and acute respiratory distress syndrome. Continue IV antibiotics. Dr. Gibbons has been consulted. 3. Postmenopausal osteoporosis with compression fractures of multiple thoracic vertebra. Lidocaine was ordered for pain control. The patient is already on multiple other pain medications. We will go ahead and arrange for MRI of the thoracic spine to see whether that these are acute fractures and we will also proceed with vertebroplasty if necessary. [place], [place] PATIENT HISTORY AND PHYSICAL EXAM NAME: AZAR REYNOSO UNIT #: [id number] ROOM: [facility] DOCTOR: GENEVA MCKNIGHT MD BIRTHDATE: [birth year] GENEVA MCKNIGHT MD CM:HISPHYS:PATIENT HISTORY AND PHYSICAL EXAMINATION 09 [phone] GENEVA MCKNIGHT MD 03/20/17 1042 interface
--- NOTE | ~2017-03-19 | EKG ---
[place], [place] ELECTROCARDIOGRAM REPORT NAME: AZAR REYNOSO UNIT #: [id number] ROOM: 512 DOCTOR: SONI RAZA MD,NINO BIRTHDATE: [birth year] DOS: 03/21/2017 TIME: 11:36 a.m. The electrocardiogram for the patient shows mild sinus tachycardia, heart rate 103 beats per minute. Otherwise, the electrocardiogram was noted normal. NINO SHAFER MD CM:EKGRPT:ELECTROCARDIOGRAM REPORT 36 58 NINO RAZA MD
--- NOTE | ~2017-03-19 | PR ---
[place], [place] PROGRESS NOTE [facility] [id number] UNIT #: [id number] ROOM: 512 DOCTOR: DARCIE MULLIGAN MD BIRTHDATE: [birth year] DOS: 03/22/2017 SUBJECTIVE: The patient is still complaining of shortness of breath and scheduled for a bronchoscopy on Friday by Dr. Gibbons. OBJECTIVE: GENERAL APPEARANCE: The patient is alert and oriented x 3, in no visible distress except for generalized weakness. VITAL SIGNS: Blood pressure 125/80, heart rate 85 beats per minute, breathing 18 times per minute, temperature 98 degrees Fahrenheit. HEENT AND NECK: Exam within normal limits. CARDIOVASCULAR SYSTEM: Heart rate is regular in rate and rhythm. S1 and S2 normally audible. LUNGS: Decreased breath sounds all over and expiratory wheezing all over. ABDOMEN: Soft, nontender. No obvious organomegaly. Bowel sounds are present. EXTREMITIES: Without significant cyanosis or edema. IMPRESSION: 1. Acute exacerbation of severe underlying chronic obstructive pulmonary disease with acute over chronic respiratory failure. The patient is scheduled for bronchoscopy by Dr. Gibbons on Friday. 2. Acute compression fracture at T12, for which she is scheduled for a vertebroplasty. 3. Chronic anticoagulation with Eliquis, is on hold because of her kyphoplasty planned on Friday along with bronchoscopy. 4. History of severe osteoporosis followed and treated. 5. Corticosteroid dependence also promotes her osteoporosis. DARCIE MULLIGAN MD CM:PNTRANS [phone] DARCIE MULLIGAN MD 03/23/17 0404 interface
--- NOTE | ~2017-03-19 | PR ---
[place], [place] PROGRESS NOTE NAME: AZAR REYNOSO [facility] #: [id number] UNIT #: [id number] ROOM: 512 DOCTOR: SONI RAZA MDNINO BIRTHDATE: [birth year] DOS: 03/25/2017 SUBJECTIVE: She had bronchoscopy done yesterday with a copious amount of secretion removed from the endobronchial tree including mucus impaction of major airways. This resulted in reduction of coughing or wheezing. The symptom resolution noted incomplete. She has been continued on intravenous steroids, bronchodilators and oxygen supplementation. CT scan of the chest that was ordered for assessment of possible pulmonary nodules were completed today as well. She denies symptoms of headache. Denies symptoms of diplopia. Denies symptoms of edema or pain of the lower extremities or any acute musculoskeletal new pain. She does have a chronic pain related to the multilevel compression fracture of the different vertebral bodies. OBJECTIVE: VITAL SIGNS: This morning; normal temperature, respiratory rate 20, heart rate 94, blood pressure 150/86. The pulse oxygen saturation of the patient recorded on 6 L nasal cannula 97% saturation. HEENT: Examination shows no acute change. NECK: Supple. CARDIOVASCULAR: S1, S2 audible. LUNGS: Mild to moderate expiratory wheezing was present. Wheezing noted partially decreased from previous examination of the patient after the bronchoscopy. ABDOMEN: Soft, nontender. EXTREMITIES: No edema, clubbing, cyanosis. SKIN: Visible skin. No lesions or rashes. CENTRAL NERVOUS SYSTEM: Nonfocal. LABORATORY DATA: I personally reviewed the CT scan of the images that were done for this patient from the PACS images which was done this morning. It does not show any pulmonary nodules for this patient, which was suspected on the chest x-ray. There was no lymphadenopathy. Central lobular emphysema changes were noted. Gram stain of the sputum was noted with a few epithelial cells, rare white blood cells, few gram-negative bacilli, rare gram-positive cocci in pairs and clusters and rare budding yeast. Cultures of the bronchial washing was noted as normal sari. Final culture results were pending. Blood culture which was done for the patient on 03/19/2017 was noted as no bacterial growth. The patient underwent kyphoplasty of T12 vertebral bone by Dr. Garcia yesterday was successful without any complications. IMPRESSION: 1. The patient who has been currently noted with ongoing acute severe bronchitis. The patient with craje-tt-vwaedbu hypercapnic hypoxic respiratory failure, exacerbation of chronic obstructive pulmonary disease. 2. Multilevel compression fracture, chronic and acute, was noted with successful kyphoplasty of T12. 3. Status post therapeutic bronchoscopy as well. 4. Leukocytosis secondary to current acute infection. 5. History of chronic spastic paresis for the patient, which has been known. [place], [place] PROGRESS NOTE NAME: AZAR REYNOSO UNIT #: [id number] ROOM: [facility] DOCTOR: NINO CAR MD BIRTHDATE: [birth year] 6. Severe debility. PLAN OF TREATMENT: Continuation of the current therapy, plan of management as in progress. Continue other supportive therapy, plan of care as well. Usual treatment. Additional treatment changes will be recommended based on progression of the illness. NINO SHAFER MD CM:PNTRANS 1352 0014 NINO RAZA MD 03/26/17 0014 interface
--- NOTE | ~2017-03-19 | EKG ---
[place], [place] ELECTROCARDIOGRAM REPORT NAME: AZAR REYNOSO UNIT #: [id number] ROOM: 512 DOCTOR: SONI RAZA MD,NINO BIRTHDATE: [birth year] DOS: 03/19/2017 TIME: 11:57 a.m. CONCLUSION: Normal sinus rhythm noted that heart rate 87 beats per minute without any electrocardiographic abnormalities. NINO SHAFER MD CM:EKGRPT:ELECTROCARDIOGRAM REPORT [phone] NINO RAZA MD
--- NOTE | ~2017-03-19 | PR ---
[place], [place] PROGRESS NOTE [id number] UNIT #: [id number] ROOM: 512 DOCTOR: SONI RAZA MD,NINO BIRTHDATE: [birth year] DOS: 03/22/2017 SUBJECTIVE: She has been snoring, excessive chest congestion, increased expectoration or sputum. The chest pain has been noted better controlled at this time. Denies symptoms of hemoptysis. The patient's shortness of breath has been noted somewhat decreased with reduction in the wheezing was also reported. The patient has been getting the pain medical management as well. OBJECTIVE: VITAL SIGNS: Temperature noted normal, respiratory rate 18, heart rate 104, blood pressure 130/89. The pulse oxygen saturation recorded as 99% with the BiPAP and nasal cannula supplement oxygen. HEENT: Examination shows no acute change. NECK: Supple. CARDIOVASCULAR: S1, S2 is audible. LUNGS: Noted without any crackles. Rhonchi present. Moderate decreased breath sounds and expiratory wheezing were noted. ABDOMEN: Soft, nontender. EXTREMITIES: Without any edema. IMPRESSION: 1. Multilevel compression fracture noted of the spine, previously known with acute addition of fractures. 2. Osteoporosis. 3. Acute exacerbation of chronic obstructive pulmonary disease, acute tracheobronchitis, persistent nonproductive cough. 4. Acute on chronic hypercapnic and hypoxic respiratory failure. PLAN OF MANAGEMENT: Continue current plan of management. Therapeutic bronchoscopy also planned for the patient to be done on Friday morning. In the meantime, continue to maximize the respiratory management. NINO SHAFER MD CM:PNTRANS [phone] NINO RAZA MD 03/23/17 0123 interface
--- NOTE | ~2017-03-19 | PR ---
[place], [place] PROGRESS NOTE NAME: AZAR REYNOSO UNIT #: [id number] ROOM: 512 DOCTOR: SHEEBA LENY BIRTHDATE: [birth year] DOS: 03/26/2017 SUBJECTIVE: The patient was seen and examined at bedside. The patient is status post bronchoscopy that was performed on the and multiple mucus plugs were cleared from all airways. The patient reports that she feels like she continues to improve on a daily basis; however, she does have some residual shortness of breath and cough. It was discussed with the patient yesterday about the pulmonary nodules that were seen on CT and recommended followup. OBJECTIVE: VITAL SIGNS: Temperature 98.4, pulse is 89, respirations 20, blood pressure 132/70, pulse ox is 98% on 6 liters nasal cannula. HEENT: Eyes were clear. No injection. Mucous membranes were moist. NECK: Supple and nontender. CARDIOVASCULAR: S1 and S2 were audible. Regular rate and rhythm. No murmurs, gallops or rubs. LUNGS: Mild to moderate expiratory wheezing, mild improvement from yesterday. ABDOMEN: Soft, nontender, positive bowel sounds. EXTREMITIES: No edema, clubbing or cyanosis. SKIN: No rashes. No erythema. NEUROLOGIC; Negative for focal deficits. IMPRESSION: 1. Acute on chronic obstructive pulmonary disease exacerbation with chronic hypercapnic hypoxic respiratory failure component. 2. Multiple level compression fractures with a history of successful kyphoplasty. 3. Status post therapeutic bronchoscopy. 4. Chronic spastic paresis. 5. Severe debility. PLAN: The patient would likely benefit from SNF for rehab, continue current respiratory therapy including antibiotics, steroids and breathing treatments. We will continue to follow. LENY ALY DO [place], [place] PROGRESS NOTE NAME: AZAR REYNOSO UNIT #: [id number] ROOM: 512 DOCTOR: SHEEBALENY KATZ DO BIRTHDATE: [birth year] NINO SHAFER MD CM:MAREIL [id number] LENY ALY DO 03/26/17 1752 interface
--- NOTE | ~2017-03-19 | PR ---
[place], [place] PROGRESS NOTE NAME: AZAR REYNOSO [facility] #: [id number] UNIT #: [id number] ROOM: 512 DOCTOR: SONI RAZA MD,NINO BIRTHDATE: [birth year] DOS: 03/24/2017 SUBJECTIVE: She has been noted essentially same status of the patient's severe cough remains. The patient has not been able to expectorate sputum, shortness breath has been noted partially decreased. The wheezing was still noted intermittently, still noted generalized weakness and fatigue. The patient is currently n.p.o. past midnight for bronchoscopy planned for today. She denies any symptoms of nausea, vomiting, diarrhea, dizziness or headache. Denies symptoms of hematuria or suprapubic pain. Denies any new musculoskeletal symptom. The pain which was previously noted for the patient in the chest and the back remains controlled with current pain management. The remaining history was noted negative. OBJECTIVE: VITAL SIGNS: Show normal temperature, respiratory rate was recorded as 18, heart rate 80, blood pressure 142/88. Pulse oxygen saturation of the patient recorded as 98% on 6 liter nasal cannula. HEENT: Examination shows loss of muscles of mastication. Head was atraumatic. Eyes nonicterus. NECK: Supple. CARDIOVASCULAR: S1, S2 is audible. LUNGS: The patient was noted without any crackles. Diffuse expiratory wheezing remains persistent as previously. ABDOMEN: Soft, nontender. EXTREMITIES: Without any acute edema. LABORATORY DATA: The PT and PTT of the patient which were done this morning were noted as normal. IMPRESSION: 1. The patient who has been currently noted with ongoing acute exacerbation of chronic obstructive pulmonary disease, vlbde-uk-aurpuph hypercapnic and hypoxic respiratory failure. 2. Multilevel compression fracture. 3. Question of a nodule in the lungs was also noted in the chest x-ray, at the present time required further assessment. 4. The patient with severe debility with chronic spastic paresis. PLAN OF TREATMENT: Proceed with the bronchoscopy is ordered for this patient to be done today. For the assessment of pulmonary nodule for the patient, CT scan of the chest will be done without contrast tomorrow morning. Other supportive therapy, plan of management for this patient as ongoing. Any modification in the treatment for the patient necessary will be ordered after the bronchoscopy completion. Continue current high dose of corticosteroids, bronchodilators, oxygen supplementation, use of the BiPAP. Nutrition support and other treatments. [place], [place] PROGRESS NOTE NAME: AZAR REYNOSO UNIT #: [id number] ROOM: 512 DOCTOR: NINO CAR MD BIRTHDATE: [birth year] NINO SHAFER MD CM:MARIEL [phone] 11 NINO RAZA MD 03/24/17 221 interface
--- NOTE | ~2017-03-19 | PR ---
[place], [place] PROGRESS NOTE NAME: AZAR REYNOSO UNIT #: [id number] ROOM: 512 DOCTOR: GENEVA MCKNIGHT MD BIRTHDATE: [birth year] DOS: SUBJECTIVE: The patient states that her back pain is much better after the vertebroplasty. She is not having any complaints today. Denies any chest pains, palpitations. OBJECTIVE: VITAL SIGNS: Graphic trend shows blood pressure of 124/74, pulse of 75, respirations 18, temperature 96.8. LUNGS: Clear. HEART: Regular. ABDOMEN: Soft. EXTREMITIES: Without any edema. ASSESSMENT AND PLAN: 1. Acute exacerbation of chronic obstructive pulmonary disease, stable. 2. Acute tracheobronchitis, status post bronch cultures showing Stenotrophomonas maltophilia. The patient will be placed on Bactrim. 3. Recent vertebroplasty with acute compression fracture. Pain is under control. 4. Adult failure to thrive, to go to [facility]. GENEVA MCKNIGHT MD CM:PNTRANS 9 5 GENEVA MCKNIGHT MD 03/26/17915 interface
--- NOTE | ~2017-03-19 | PR ---
[place], [place] PROGRESS NOTE NAME: AZAR REYNOSO UNIT #: [id number] ROOM: 512 DOCTOR: DARCIE MULLIGAN MD BIRTHDATE: [birth year] DOS: 03/23/2017 SUBJECTIVE: Patient is breathing about the same, remains on oxygen and BiPAP as needed. OBJECTIVE: VITAL SIGNS: Blood pressure 136/63, heart rate 90 beats per minute, breathing 18 times per minute, temperature 98.5 degrees Fahrenheit. GENERAL APPEARANCE: The patient is alert and oriented x 3, in no visible distress. Generalized weakness. HEENT AND NECK: Exam within normal limits. CARDIOVASCULAR SYSTEM: Heart rate is regular in rate and rhythm. S1 and S2 normally audible. LUNGS: Decreased breath sounds all over on lung auscultation. ABDOMEN: Soft, nontender. No obvious organomegaly. Bowel sounds are present. EXTREMITIES: Without significant cyanosis or edema. IMPRESSION: 1. Acute exacerbation of severe underlying chronic obstructive pulmonary disease with acute over chronic respiratory failure, scheduled for a bronchoscopy by Dr. Gibbons on Friday. 2. Acute compression fracture at T12, going for wedge kyphoplasty by Radiology tomorrow. 3. Chronic anticoagulation with Eliquis, is on hold for anticipated kyphoplasty. 4. Severe osteoporosis, followed and treated. 5. Corticosteroid dependence, also promotes her osteoporosis. DARCIE MULLIGAN MD CM:PNTRANS 1740 1 DARCIE MULLIGAN MD 03/24/17101 interface
--- NOTE | ~2017-03-19 | PR ---
[place], [place] PROGRESS NOTE NAME: AZAR REYNOSO UNIT #: [id number] ROOM: 512 DOCTOR: NINO CAR MD BIRTHDATE: [birth year] DOS: 03/26/2017 The patient independently seen and examined in [id number] encounter today. History was confirmed. Physical examination was performed. All the labs available for the patient were reviewed. Changes in the medical management, other recommendation were personally made for patient at today's visit. Note done by the medical engineer was approved as well SUBJECTIVE: She has been still noted with symptoms of wheezing and coughing for the patient, which has been decreased, but not completely resolved. Denies symptoms of acute chest pain. The patient has a CT scan of the chest completed yesterday for the patient, which was reviewed as well. OBJECTIVE: VITAL SIGNS: For the patient which were recorded the patient shows a normal temperature, respiratory 20, heart rate 94, blood pressure 130/68, pulse oxygen saturation on 2 liter nasal cannula 99% saturation. HEENT: The patient was noted without any acute new changes. CARDIOVASCULAR: S1, S2 audible. LUNGS: Moderate decreased breath sounds, mild to moderate expiratory wheezing. ABDOMEN: Soft and nontender. LABORATORY DATA: CT scan chest does not show any abnormal pulmonary nodules. Postoperative changes and pleural thickening of the left side as previously, former bypass surgery and chemical pleurodesis. IMPRESSION: 1. Resolving acute on chronic hypercapnia hypoxic respiratory failure with exacerbation of chronic obstructive pulmonary disease, gradually and slowly. 2. Severe debility. 3. Multi-level compression fracture with kyphoplasty of T12 vertebral bone on this admission as well. PLAN OF TREATMENT: The patient could be discharged to the nursing facility for the patient for continued medical management with use of corticosteroids and bronchodilators. Continuation of antibiotics and other medical management. Usual care with additional treatment changes will be done based on the progression of the illness. [place], [place] PROGRESS NOTE NAME: AZAR REYNOSO UNIT #: [id number] ROOM: 512 DOCTOR: NINO CAR MD BIRTHDATE: [birth year] NINO SHAFER MD CM:PNTRANS [id number] NINO RAZA MD 03/26/172208 interface
--- NOTE | ~2017-03-19 | CON ---
[place], [place] REPORT [id number] UNIT #: [id number] ROOM: 512 DOCTOR: SONI RAZA MD,NINO BIRTHDATE: [birth year] DOS: 03/20/2017 REASON FOR CONSULTATION: To assess the patient for symptoms of shortness of breath with acute exacerbation of COPD. CONSULTATION REQUESTED BY: GENEVA MCKNIGHT MD HISTORY OF PRESENT ILLNESS: The patient presented to the Emergency Room as the patient developed increased respiratory symptoms in the past couple of weeks with progressive increased shortness of breath at home, which was a worsening significantly. The shortness of breath currently noted with minimal exertion activity, sometime at rest as well previous noted with exertion. She has also noted symptoms of intermittent cough, which are described to be nonproductive with wheezing and tightness in the chest. She denies symptoms of chest pain. She has been taking her nebulized bronchodilators, oxygen supplementation 6 liters canula and other medications, which are not noted effective to resolve the current symptom. She has not been given any medication as an outpatient at the present time. She was still noted with shortness of breath, which has been noted persistent since hospitalization on 03/19/2017. She denies any symptoms of chest pain or hemoptysis at this time. REVIEW OF SYSTEMS: CONSTITUTIONAL: Significant fatigue and tiredness noted without any fever or chills. EYES: Denies any burning, redness, or tenderness. EARS, NOSE, THROAT SYMPTOMS: No sore throat, hoarseness, otalgia, postnasal drainage or epistaxis. CARDIOVASCULAR: Denies anginal pain, edema, pain of the lower extremities or palpitations. MUSCULOSKELETAL: No acute joint pain, redness, or tenderness. SKIN: Denies lesions or rashes. MUSCULOSKELETAL SYMPTOMS: There were no acute deformities. CENTRAL NERVOUS SYSTEM: Chronic spastic paresis was noted with difficulty walking; however, the patient does ambulate without using the walker most of the time. SKIN: Denies lesions or rashes. Remaining systems were reviewed. They were noted all negative. PAST MEDICAL HISTORY: 1. Advanced centrilobular emphysema. 2. Chronic hypoxic respiratory failure, use of oxygen supplementation up to 6 liters nasal cannula. 3. Chronic hypercapnic respiratory failure. 4. Uncomplicated severe persistent bronchial asthma. 5. Low BMI, which is chronic. 6. Migraine headache. 7. Spastic paresis. 8. Past pneumothorax, left-sided requiring chest tube thoracostomy and chemical pleurodesis and later recurrent pneumothorax requiring VATS procedure and [place], [place] REPORT OF CONSULTATION [facility]: [id number] UNIT #: [id number] ROOM: [facility] DOCTOR: NINO CAR MD BIRTHDATE: [birth year] chemical pleurodesis was redone in 2014. 9. Restless legs syndrome. 10. General anxiety disorder. 11. Allergic rhinitis. 12. Osteoporosis. 13. Compression fracture in the vertebral spine. Chronic treated with the chest brace. 14. Deep venous thrombosis, on anticoagulation with Eliquis, involving the right lower extremity since 2015. 15. History of chronic prednisone use as well. 16. History of chronic noninvasive ventilator use as well. PAST SURGICAL HISTORY: 1. Advair therapeutic bronchoscopy last one done in August 2016. 2. Benign cyst removed from several parts of the body, mostly from the skin. 3. Chest tube thoracostomy left side. 4. VATS procedure ____ in 2014. 5. Past intubation and mechanical ventilation. 6. MediPort insertion. SOCIAL HISTORY: The patient is and lives at home. History of tobacco use noted from age [age] years old, 2 packs of cigarettes per day, which was discontinued several years ago. The history of alcohol use or any illicit drugs or occupation related, pulmonary exposure. FAMILY HISTORY: Father at 72 years old, complication of congestive heart failure. Mother at 57-year-old, complication related to emphysema and COPD. CURRENT MEDICATIONS: Administered noted use of Fosamax, Singulair, Lidoderm patch, Xarelto 15 mg, Daliresp, Topamax, Lexapro, Bumex, vitamin D, Requip, oral Cardizem 60 mg b.i.d., IV Solu-Medrol, Flexeril, ____sulfa with the nebulizer, Flonase, prednisone 10 mg and Rocephin. Solu-Medrol has been currently administered 30 mg every 8 hours. DRUG ALLERGY HISTORY: The patient reported as allergy. 1. Primaxin. 2. Cefepime. PHYSICAL EXAMINATION: GENERAL: A 56-year-old female currently noted to be awake and alert without any acute distress at the present time. Height of 5 feet, weight of 152 pounds, BMI 20.7. VITAL SIGNS: Normal temperature, respiratory rate of 18-22, heart rate 92-103, blood pressure 132/73-149/92. Pulse oxygen saturation on 6 liters at 96% saturation at rest. HEAD, EARS, EYES, NOSE AND THROAT: Shows head was atraumatic. Eyes nonicterus. Oral mucosa was noted moist. CARDIOVASCULAR: S1, S2 is audible. LUNGS: The patient was noted without any wheezing or crackles at the present [place], [place] REPORT OF CONSULTATION NAME: AZAR REYNOSO UNIT #: [id number] ROOM: 512 DOCTOR: NINO CAR MD BIRTHDATE: [birth year] time. Breaths are noted severely diminished bilaterally, poor air exchange. ABDOMEN: Soft, nontender, bowel sounds present. CENTRAL NERVOUS SYSTEM: Noted without any edema, clubbing or cyanosis. Chronic loss of muscle mass. MUSCULOSKELETAL: Noted without any acute deformities. SKIN: Noted without any lesions or rashes. CENTRAL NERVOUS SYSTEM: Cranial nerves 2-12 intact with a history of chronic spastic paresis otherwise known. LABORATORY AND DIAGNOSTIC DATA: CBC that was done yesterday WBC count 12.5, platelet count normal, hemoglobin and hematocrit normal. CMP that was done yesterday. BUN and creatinine were normal. Remaining labs were normal. The lactic acid noted 1.4. Two-view chest x-ray was done yesterday was personally reviewed shows changes of severe COPD with a chronic pleural thickening left side secondary to pleurodesis and surgical changes, severe osteoporosis for progressive compression fracture, multiple dark vertebral bone were noted complete loss of T7 vertebral bone and 50% loss of T10 and mild compression fracture of T11. IMPRESSION: The patient who has been currently admitted to the hospital. 1. The patient noted with acute exacerbation of chronic obstructive pulmonary disease with acute bronchitis. 2. Cervical compression fractures, severe osteoporosis with chronic prednisone dependency as well. 3. History of general anxiety disorder. 4. Use of noninvasive ventilator from home as well. Over debility with history of spastic paresis and recurrent past hospitalization. PLAN OF MANAGEMENT: The patient would be recommended about getting arterial blood gases and starting the patient on the BiPAP from the hospital based on the arterial blood gases assessment for the appropriate settings. Continue current dose of corticosteroids as well. Continue current antibiotic. The patient has been noted allergy to the CEFEPIME, but can take the Rocephin without any difficulty. Other supportive therapy, plan of management and care. Usual treatment. Additional treatment changes need to be made based on the progression of the illness. Continue bronchodilators every 4 hours. Usual care. Our prognosis of the patient remains guarded. NINO SHAFER MD CM:CONSTR:REPORT OF CONSULTATION 1350 03/20/17 1939 interface
--- NOTE | ~2017-03-19 | PR ---
[place], [place] PROGRESS NOTE NAME: AZAR REYNOSO [facility] #: [id number] UNIT #: [id number] ROOM: 512 DOCTOR: SONI RAZA MD,NINO BIRTHDATE: [birth year] DOS: 03/21/2017 SUBJECTIVE: She has been still noted with episodic nonproductive cough with a pain in the chest, which is chronic. She had an MRI of the thoracic spine done yesterday, ordered by Dr. Elidia Saleh for further assessment of current compression fractures. She has not been noted symptoms of abdominal pain. Shortness of breath, the patient is currently on the BiPAP, that has been used by the patient as advised previously. The patient did not report any symptoms of hemoptysis. There were no symptoms of chest pain. OBJECTIVE: VITAL SIGNS: For the patient which were recorded showed the temperature as normal today, respirations 18, heart rate 91, blood pressure 126/82. The pulse oxygen saturation with the nasal cannula. The patient is on the BiPAP. A 6 liters of oxygen on the BiPAP with 40% oxygen 96-97% saturation. HEENT: Shows head was atraumatic. Eyes: No icterus. NECK: Supple. CARDIOVASCULAR: S1, S2 is audible. LUNGS: The patient was noted without any wheezing or crackles at the present time. Breaths are noted severely diminished bilaterally with persistent decreased air entry of the lungs. ABDOMEN: Soft, nontender. Bowel sounds present. LABORATORY DATA: The patient's arterial blood gas yesterday at 6 liters, pH of 7.39, pCO2 of 49, pO2 58.9. The thoracic spine MRI for the patient was done that shows evidence of acute compression fracture of T12 endplate with old compression fracture at T4, T8, and T11. Mild annular bulging of the disk was noted at the level of T4-T5 and T10-T11. The patient has thoracic spine ____ 3 views also completed described as a compression deformities of T4, T8, T11 with mild compression of endplate of T12. IMPRESSION: The patient on a blood culture rather patient information on 03/19/2017 with no bacterial growth preliminary recorded. IMPRESSION: 1. The patient who had been currently noted with severe ongoing acute hypoxic with chronic hypoxic respiratory failure, with history of chronic hypercapnia, and exacerbation of chronic obstructive pulmonary disease. 2. Compression fracture ____ thoracic spine for this patient with the current acute partial compression of T11. 3. History of severe osteoporosis. 4. Dependency on the steroids, which has been known previously. Unfortunately, there were no alternative treatments will be available for this patient at this time for symptomatic management with extremely advanced chronic obstructive pulmonary disease and terminal emphysema. PLAN OF TREATMENT: Continuation of current plan of management with BiPAP oxygen supplementation. Bronchoscopy planned for the patient to be done on Friday. The n.p.o. past midnight status will be achieved from Friday midnight. Risk and benefits have been understood by the patient previously. Usual care. Continue [place], [place] PROGRESS NOTE NAME: ANGELESAZAR Yunier UNIT #: [id number] ROOM: [facility] DOCTOR: NINO CAR MD BIRTHDATE: [birth year] with the BiPAP most of the time to stabilize and improve the respiratory failure as well. NINO SHAFER MD CM:PNTRANS 1601 6 NINO RAZA MD 03/22/17326 interface
--- NOTE | ~2017-03-19 | DS ---
[place], [place] DISCHARGE SUMMARY NAME: AZAR REYNOSO [facility] #: [id number] UNIT #: [id number] ROOM: 512 DOCTOR: GENEVA MCKNIGHT MD BIRTHDATE: [birth year] DOS: 03/26/2017 DIAGNOSES: 1. Acute exacerbation of chronic obstructive pulmonary disease. 2. Acute tracheobronchitis, status post bronchoscopy showing Stenotrophomonas maltophilia. 3. Adult failure to thrive. 4. T12 compression fracture, status post vertebroplasty. 5. Chronic back pain. 6. Postmenopausal osteoporosis. 7. Generalized anxiety disorder. 8. Spastic paresis. HOSPITAL COURSE: The patient is very well known to us. She comes in with complaints of increasing difficulty breathing. Please refer to H and P for details. After admission, the patient was placed on IV steroids, antibiotics, breathing treatments, continued to have the cough. Sputum cultures were negative. The patient was taken for a bronchoscopy for a better sputum specimen and bronchial lavage. After that the patient did develop some significant bronchospasm, but it seems to be slowly resolving. Cultures are showing Stenotrophomonas maltophilia. The patient is overall stable and is not having any new problems, but continued back pain. MRI was done and showed acute fracture of the T8. Discussed with Dr. Garcia. The patient was taken for a vertebroplasty after Eliquis was held. The patient felt significantly better after the vertebroplasty was performed and this morning she is fairly stable. The plan is to discharge her to senior living for continued antibiotics. DISCHARGE MEDICATIONS: Levaquin 500 mg IV daily for 7 days, Bactrim-DS 1 tablet p.o. twice a day for 5 days, prednisone 40 daily for 3 days, 30 daily for 3 days, 20 daily for 3 days, 10 daily for 3 days and then 5 mg daily, omeprazole 20 daily, Requip 0.25 at bedtime, Ventolin 2 puffs q.i.d. p.r.n., DuoNeb q. 4 hours, Fosamax 70 once weekly, Incruse Ellipta 1 inhalation b.i.d., Lexapro 20 daily, fluticasone 2 sprays twice a day p.r.n. to the nostrils, Singulair 10 daily, Topamax 25 mg daily, MiraLax 17 grams daily p.r.n., cyclobenzaprine 10 b.i.d., Breo Ellipta 1 inhalation daily, Bumex 1 mg 1-1/2 pills daily, morphine 5 q. 4 hours p.r.n., Tylenol 650 q. 6 hours p.r.n., potassium 20 daily, verapamil 120 daily, Daliresp 500 mcg daily, Xanax 0.5 t.i.d. p.r.n., vitamin D 5000 units daily, diltiazem 60 b.i.d., Xarelto 15 mg daily, lidocaine patch for local application to her back. [place], [place] DISCHARGE SUMMARY NAME: AZAR REYNOSO UNIT #: [id number] ROOM: [facility] DOCTOR: GENEVA MCKNIGHT MD BIRTHDATE: [birth year] GENEVA MCKNIGHT MD CM:HENRY 5 6 GENEVA MCKNIGHT MD 03/26/17926 interface
[~2017-03-19 10:50] MED LIST changes: +ALPRAZOLAM1 M2 PO; +BACTRIM DS 8001 TA1 PO; +BUMEX2.5 MG/10 PO; +ELIQUIS5 M1 PO; +MORPHINE S10 MG/5 M1 PO; +POTASSIUM CHLO20 ME3 PO; +TYLENOL325 M2 PO; +VERAPAMIL SR120 MG PO; +VITAMIN D1000 IU PO
[2017-03-19 10:53] VITALS: BP 149/92
[2017-03-19 11:40] LABS: BASO # 0.1 10*3/uL (0.0-0.1); BASO % 0.6 % (0.0-1.0); EOS # 0.2 10*3/uL (0.0-0.4); EOS % 1.5 % (1.0-4.0); HEMATOCRIT 39.2 % (37.0-47.0); HEMOGLOBIN 12.4 g/dl (12.0-16.0); LYMPH # 0.8 10*3/uL (1.3-4.4); LYMPH % 6.7 % (27.0-41.0); MEAN CELL VOLUME 90.5 fl (81.0-99.0); MEAN CORPUSCULAR HGB 28.6 pg (27.0-31.0); MEAN CORPUSCULAR HGB CONC 31.6 g/dl (33.0-37.0); MEAN PLATELET VOLUME 10.7 fl (9.6-12.3); MONO # 0.4 10*3/uL (0.1-1.0); MONO % 3.4 % (3.0-9.0); NEUT # 10.9 10*3/uL (2.3-7.9); NEUT % 87.1 % (47.0-73.0); PLATELET COUNT AUTOMATED 299 10*3/uL (130-400); RED BLOOD COUNT 4.33 10*6/uL (4.10-5.10); RED CELL DISTRI WIDTH 15.1 % (0-14.5); WHITE BLOOD COUNT 12.5 10*3/uL (4.8-10.8)
[2017-03-19 11:56] LABS: ALBUMIN 3.3 gm/dl (3.1-4.5); ALKALINE PHOSPHATASE 87 U/L (45-117); BUN 14 mg/dl (7-24); CHLORIDE 101 mmol/L (98-107); CREATININE 0.64 mg/dL (0.55-1.02); POTASSIUM 3.8 mmol/L (3.5-5.1); SGOT/AST 20 IU/L (3-35); SGPT/ALT 14 U/L (12-78); SODIUM 138 mmol/L (136-145); TOTAL PROTEIN 7.3 gm/dL (6.4-8.2)
[2017-03-19 11:58] LABS: TROPONIN I < 0.015 ng/ml (<0.045)
[2017-03-19 14:09] VITALS: BP 129/83
[2017-03-19 16:00] VITALS: BP 129/71
[2017-03-19] MEDS ORDERED: CARDIZEM60 MG PO (17:15)
[2017-03-19] MEDS ORDERED: XARE15TA PO (17:17)
[2017-03-19 20:00] VITALS: BP 125/73
[2017-03-20] VITALS: BP 135/90
[2017-03-20 08:00] VITALS: BP 133/73
[2017-03-20 12:00] VITALS: BP 141/96
[2017-03-20 15:29] LABS: ABG BASE EXCESS 3.9 mmol/L (-2.0-2.0); ABG HCO3 29.3 mmol/l (22-26); ABG O2 SATURATION 90.1 % (95-97); ARTERIAL BLOOD GAS PCO2 49.2 mmHg (35-45); ARTERIAL BLOOD GAS PH 7.391 (7.35-7.45); ARTERIAL BLOOD GAS PO2 58.9 mmHg (80-90)
[2017-03-20 16:00] VITALS: BP 128/79
[2017-03-20 20:00] VITALS: BP 138/88; BP 139/93
[2017-03-21] VITALS: BP 117/72
[2017-03-21 08:00] VITALS: BP 137/85
[2017-03-21 12:00] VITALS: BP 126/82
[2017-03-21 16:00] VITALS: BP 120/76
[2017-03-21 20:00] VITALS: BP 121/66
[2017-03-22] VITALS: BP 116/83
[2017-03-22 08:00] VITALS: BP 123/84
[2017-03-22 12:00] VITALS: BP 130/89
[2017-03-22 16:00] VITALS: BP 125/80
[2017-03-22 20:00] VITALS: BP 137/86
[2017-03-23] VITALS: BP 135/82
[2017-03-23 08:00] VITALS: BP 152/90
[2017-03-23 12:00] VITALS: BP 135/83
[2017-03-23 16:00] VITALS: BP 136/63
[2017-03-23 20:00] VITALS: BP 138/80
[2017-03-24] VITALS (16 sets, daily range): BP systolic 116–159; BP diastolic 52–95
[2017-03-24 11:32] LABS: HEMATOCRIT 40.8 % (37.0-47.0); HEMOGLOBIN 12.9 g/dl (12.0-16.0); MEAN CELL VOLUME 90.3 fl (81.0-99.0); MEAN CORPUSCULAR HGB 28.5 pg (27.0-31.0); MEAN CORPUSCULAR HGB CONC 31.6 g/dl (33.0-37.0); MEAN PLATELET VOLUME 10.5 fl (9.6-12.3); PLATELET COUNT AUTOMATED 422 10*3/uL (130-400); RED BLOOD COUNT 4.52 10*6/uL (4.10-5.10); RED CELL DISTRI WIDTH 15.3 % (0-14.5); WHITE BLOOD COUNT 17.6 10*3/uL (4.8-10.8)
[2017-03-24 12:21] LABS: PLATELET SUFFICIENCY HIGH (NORMAL); POLYCHROMASIA SLIGHT; TOTAL CELLS COUNTED 100 #CELLS
[2017-03-25] VITALS: BP 154/81
[2017-03-25 08:00] VITALS: BP 150/86
[2017-03-25 12:00] VITALS: BP 130/78
[2017-03-25 13:09] LABS: ACID FAST SMEAR Negative (.); ACID FAST SPEC PROCESSING Concentration (.)
[2017-03-25 16:00] VITALS: BP 151/89
[2017-03-25 20:00] VITALS: BP 145/87
[2017-03-26] VITALS: BP 124/74
[2017-03-26 08:00] VITALS: BP 148/88
[2017-03-26 12:00] VITALS: BP 132/70
== END 2017-03-26 13:05 | disposition other institution (70) | DRG 515 ==
LOC: ED 10:50 → EDHOLD 13:49 → 5E 13:49
PROVIDERS: Internal Medicine Critical Care Medicine; Nurse Practitioner Family; Radiology Diagnostic Radiology
PROC: 5A09357 Assistance with Respiratory Ventilation, Less than 24 Consecutive Hours, Continuous Positive Airway Pressure (ICD-10-PCS; principal; 2017-03-20)
PROC: 5A09357 Assistance with Respiratory Ventilation, Less than 24 Consecutive Hours, Continuous Positive Airway Pressure (ICD-10-PCS; 2017-03-21)
PROC: 5A09357 Assistance with Respiratory Ventilation, Less than 24 Consecutive Hours, Continuous Positive Airway Pressure (ICD-10-PCS; 2017-03-22)
PROC: 5A09357 Assistance with Respiratory Ventilation, Less than 24 Consecutive Hours, Continuous Positive Airway Pressure (ICD-10-PCS; 2017-03-23)
PROC: 0BC98ZZ Extirpation of Matter from Lingula Bronchus, Via Natural or Artificial Opening Endoscopic (ICD-10-PCS; 2017-03-24)
PROC: 0BC88ZZ Extirpation of Matter from Left Upper Lobe Bronchus, Via Natural or Artificial Opening Endoscopic (ICD-10-PCS; 2017-03-24)
PROC: 0BC58ZZ Extirpation of Matter from Right Middle Lobe Bronchus, Via Natural or Artificial Opening Endoscopic (ICD-10-PCS; 2017-03-24)
PROC: 0PU43JZ Supplement Thoracic Vertebra with Synthetic Substitute, Percutaneous Approach (ICD-10-PCS; 2017-03-24)
PROC: 5A09357 Assistance with Respiratory Ventilation, Less than 24 Consecutive Hours, Continuous Positive Airway Pressure (ICD-10-PCS; 2017-03-24)
PROC: 0BC28ZZ Extirpation of Matter from Carina, Via Natural or Artificial Opening Endoscopic (ICD-10-PCS; 2017-03-24)
PROC: 0BC18ZZ Extirpation of Matter from Trachea, Via Natural or Artificial Opening Endoscopic (ICD-10-PCS; 2017-03-24)
PROC: 0BC48ZZ Extirpation of Matter from Right Upper Lobe Bronchus, Via Natural or Artificial Opening Endoscopic (ICD-10-PCS; 2017-03-24)
PROC: 0BC68ZZ Extirpation of Matter from Right Lower Lobe Bronchus, Via Natural or Artificial Opening Endoscopic (ICD-10-PCS; 2017-03-24)
DX: M80.08XA Age-related osteoporosis with current pathological fracture, vertebra(e), initial encounter for fracture (principal); J96.21 Acute and chronic respiratory failure with hypoxia; Z99.81 Dependence on supplemental oxygen; J96.22 Acute and chronic respiratory failure with hypercapnia; J44.0 Chronic obstructive pulmonary disease with (acute) lower respiratory infection; J44.1 Chronic obstructive pulmonary disease with (acute) exacerbation; G83.9 Paralytic syndrome, unspecified; R62.7 Adult failure to thrive; B96.89 Other specified bacterial agents as the cause of diseases classified elsewhere; J20.9 Acute bronchitis, unspecified; F41.1 Generalized anxiety disorder; G43.909 Migraine, unspecified, not intractable, without status migrainosus; G25.81 Restless legs syndrome; Z86.718 Personal history of other venous thrombosis and embolism; Z79.51 Long term (current) use of inhaled steroids; Z79.01 Long term (current) use of anticoagulants; Z79.899 Other long term (current) drug therapy; Z88.8 Allergy status to other drugs, medicaments and biological substances; Z87.891 Personal history of nicotine dependence; Z82.5 Family history of asthma and other chronic lower respiratory diseases; Z82.49 Family history of ischemic heart disease and other diseases of the circulatory system; Z80.52 Family history of malignant neoplasm of bladder; Z83.3 Family history of diabetes mellitus

== ENCOUNTER 2017-04-21 14:27 | Inpatient (IN) | payer MEDICARE ==
[~2017-04-21] VITALS: Ht 152.4 cm; Wt 48.8 kg
--- NOTE | ~2017-04-21 | PR ---
[place], [place] PROGRESS NOTE NAME: AZAR REYNOSO UNIT #: [id number] ROOM: 519 DOCTOR: NINO CAR MD BIRTHDATE: [birth year] DOS: 04/23/2017 SUBJECTIVE: She has been noted with a cough, which has been noted somewhat decreased. She has been noted well controlled. Shortness of breath, the patient noted decreasing. The reduction of the edema of the lower extremity was also noted. She has used the BiPAP. The patient as ordered. This morning, using oxygen supplementation nasal cannula. OBJECTIVE: VITAL SIGNS: For the patient normal temperature, respiratory rate 22, heart rate 113, blood pressure 116/76. The pulse oxygen saturation with the BiPAP was 98% on 6 liters as 95% saturation. HEENT: Examination shows no acute change. NECK: Supple. CARDIOVASCULAR: S1, S2 audible. LUNGS: The patient was noted with moderate decreased breath sounds with mild to moderate expiratory wheezing without any worsening from yesterday. ABDOMEN: Soft, nontender. EXTREMITIES: The patient mild edema. LABORATORY DATA: BMP today noted normal BUN and creatinine. Potassium remains normal. CO2 38. CBC of the patient, mild anemia, otherwise normal. IMPRESSION: 1. Resolving acute on chronic hypercapnic hypoxic respiratory failure. 2. Acute exacerbation of chronic obstructive pulmonary disease and acute bronchitis with Stenotrophomonas maltophilia. The patient's suboptimal response previously with the Bactrim-DS one twice a day. Currently, getting Bactrim two pills twice a day in the last 24 hours. Edema of the lower extremity was resolving. PLAN OF TREATMENT: No changes in plan of therapy. The patient at this time. Continue the patient's current plan of management as previously in progress. Usual care. Other supportive plan of care and treatment as well. Possible discharge the patient to the skilled nurse facility tomorrow if the patient remains stable. [place], [place] PROGRESS NOTE NAME: AZAR REYNOSO UNIT #: [id number] ROOM: [facility] DOCTOR: NINO CAR MD BIRTHDATE: [birth year] NINO SHAFER MD CM:PNTRANS [id number] NINO RAZA MD 04/23/17 1805 interface
--- NOTE | ~2017-04-21 | PR ---
[place], [place] PROGRESS NOTE NAME: AZAR REYNOSO UNIT #: [id number] ROOM: 519 DOCTOR: GENEVA MCKNIGHT MD BIRTHDATE: [birth year] DOS: SUBJECTIVE: The patient is about the same, does not have any new changes. PHYSICAL EXAMINATION: GENERAL: She is awake and alert and oriented, in her baseline state of respiratory distress. VITAL SIGNS: Blood pressure is 126/70, pulse of 99, respirations 18, temperature 98.0. LUNGS: Clear. HEART: Regular. ABDOMEN: Soft. EXTREMITIES: Without any edema. ASSESSMENT AND PLAN: 1. Acute exacerbation of chronic obstructive pulmonary disease, stable. 2. Recent bronchoscopy with bronch cultures showing Stenotrophomonas, on Bactrim. 3. Flu positivity, on Tamiflu. 4. Leg edema, resolving with the diuretics. GENEVA MCKNIGHT MD CM:PNTRANS 8 6 GENEVA MCKNIGHT MD 04/24/17925 interface
--- NOTE | ~2017-04-21 | WRIGHTHP ---
[place], [place] PATIENT HISTORY AND PHYSICAL EXAM NAME: AZAR REYNOSO [facility] #: [id number] UNIT #: [id number] ROOM: [facility] DOCTOR: GENEVA MCKNIGHT MD BIRTHDATE: [birth year] DOS: 04/21/2017 HISTORY OF PRESENT ILLNESS: The patient is a 56-year-old. The patient is a resident of a local half-way, was brought in because of increasing tiredness and increased shortness of breath. She does not have any chest pains or palpitations, does not have any fever or chills, has some slight cough and chest congestion and minimal swelling in her legs. She was seen in the emergency room, had a flu titer, which was positive and she was admitted. She underwent a bronchoscopy less than a week ago and it is growing some bacteria. The patient was admitted this morning. She feels okay, does not have any new complaints, does have a lot of aches and pains, but she is already on multiple pain medications for that. PAST MEDICAL HISTORY: Significant for: 1. Bronchoscopy less than a week ago, which is growing Stenotrophomonas, bronchoscopy on 04/18/2017. 2. COPD end-stage, oxygen dependent. 3. Chronic respiratory failure. 4. Adult failure to thrive. 5. Chronic back pain with compression fracture and vertebroplasty about a month ago. 6. Postmenopausal osteoporosis. 7. Generalized anxiety disorder. 8. Spastic paresis. MEDICATIONS ON DISCHARGE: Bactrim DS 3 times a day, Tamiflu 75 b.i.d., omeprazole 20 daily, Requip 0.25 at bedtime, Ventolin 2 puffs q.i.d. p.r.n., breathing treatments with DuoNeb q.4, Lexapro 20 daily, fluticasone 2 sprays twice a day, Singulair 10 daily, Topamax 50 at bedtime, MiraLax 17 grams daily p.r.n. for constipation, Flexeril 10 b.i.d., Bumex 1 mg daily, morphine 5 mg q.6 hours p.r.n. for pain, Tylenol 650 q.6h. p.r.n. for fever, potassium 20 at bedtime, Daliresp 500 mcg daily, Xanax 0.5 at bedtime p.r.n., Cardizem 60 b.i.d., Xarelto 15 at bedtime, vitamin D 5000 units daily, albuterol 2 puffs q.i.d., Fosamax 70 once weekly, Dulcolax 10 daily p.r.n., Incruse Ellipta inhalation daily, insulin sliding scale, Solu-Medrol 40 IV daily, Zofran 4 mg q.6 p.r.n. SOCIAL HISTORY: Nonsmoker, does not use any alcohol, currently resident of [facility]. PHYSICAL EXAMINATION: GENERAL: The patient is awake and alert and oriented at her baseline self. VITAL SIGNS: Blood pressure is 122/72, pulse of 94, respirations 17, temperature 97.8. LUNGS: Diminished breath sounds. No wheezes, rales or rhonchi heard this morning, diminished breath sounds. HEART: Regular. ABDOMEN: Obese, soft. EXTREMITIES: Without any edema. [place], [place] PATIENT HISTORY AND PHYSICAL EXAM NAME: AZAR REYNOSO UNIT #: [id number] ROOM: [facility] DOCTOR: GENEVA MCKNIGHT MD BIRTHDATE: [birth year] LABORATORY DATA: Sputum culture showed Stenotrophomonas maltophilia. Urine culture shows no bacterial growth. Blood gas shows pH 7.3, pCO2 of 56, pO2 70, bicarbonate 32.1. Chest x-ray unremarkable. Rapid flu positive for A. Comprehensive within normal limits except for slight drop in sodium and chloride. Protime normal. Lactic acid normal. WBC count is normal. ASSESSMENT AND PLAN: 1. The patient with influenza positive. Tamiflu has been started. 2. Recent bronchoscopy with Stenotrophomonas maltophilia, p.o. Bactrim has been ordered. Discussed with Dr. Gibbons. 3. Chronic respiratory failure, nothing acute is going on. The patient should be able to go back to the half-way on the IV Solu-Medrol that she is already on along with the p.o. Bactrim and the Tamiflu. 4. Chronic pain syndrome, already on multiple pain medications. GENEVA MCKNIGHT MD CM:HISPHYS:PATIENT HISTORY AND PHYSICAL EXAMINATION [id number] GENEVA MCKNIGHT MD 04/22/17 0926 interface
--- NOTE | ~2017-04-21 | DS ---
[place], [place] DISCHARGE SUMMARY [id number] UN[facility] #: [id number] ROOM: 519 DOCTOR: GENEVA MCKNIGHT MD BIRTHDATE: [birth year] DOS: 04/25/2017 The patient is 56 years old. DIAGNOSES: 1. Acute exacerbation of chronic obstructive pulmonary disease. 2. Stenotrophomonas in the sputum, which is nonresolving. 3. Flu positive. 4. Chronic respiratory failure. 5. Adult failure to thrive. 6. Compression fractures with chronic back pain and vertebroplasty. 7. Postmenopausal osteoporosis. 8. Generalized anxiety disorder. 9. Spastic paresis. DISCHARGE MEDICATIONS: Tamiflu 75 b.i.d., Bactrim DS 2 tablets twice a day for 7 days. Please do basic metabolic panel every other day and let Dr. Gibbons know about the results. Omeprazole 20 daily, Requip 0.25 at bedtime, Ventolin 2 puffs q.i.d. p.r.n., Lexapro 20 daily, allergy relief, fluticasone 2 sprays twice a day p.r.n., Singulair 10 daily, Topamax 50 at bedtime, Flexeril 10 b.i.d., MiraLax 17 grams daily, Bumex 1 mg daily, morphine 5 q. 6 p.r.n., Tylenol 650 q. 6 p.r.n., potassium 20 daily, Daliresp 500 mcg daily, Xanax 0.5 at bedtime p.r.n., diltiazem 60 b.i.d., Xarelto 15 at bedtime, alendronate 70 once weekly, vitamin D 5000 units daily, Incruse Ellipta 1 inhalation daily, prednisone, Solu-Medrol IV 40 daily. HOSPITAL COURSE: This patient is very well known to us, comes in with complaints of difficulty breathing. She was evaluated in the ER, was found to have exacerbation of COPD and flu positive. She underwent a bronchoscopy recently, which showed Stenotrophomonas which has been difficult to eradicate. Dr. Gibbons was consulted and he feels that the patient needs to be admitted for Bactrim. The patient received Bactrim and labs were within normal limits, did not develop any renal insufficiency or hyperkalemia, received Tamiflu for the flu. The patient is relatively stable. He has had IV steroids for the exacerbation of COPD. She is not having any complaints today. The plan is to discharge and follow up as an outpatient by Dr. Park and Dr. Gibbons. [place], [place] DISCHARGE SUMMARY NAME: AZAR REYNOSO UNIT #: [id number] ROOM: [facility] DOCTOR: GENEVA MCKNIGHT MD BIRTHDATE: [birth year] GENEVA MCKNIGHT MD CM:HENRY 5 GENEVA MCKNIGHT MD 04/25/17924 interface
--- NOTE | ~2017-04-21 | PR ---
[place], [place] PROGRESS NOTE [id number] #: [id number] ROOM: 519 DOCTOR: SONI RAZA MD,NINO BIRTHDATE: [birth year] DOS: 04/24/2017 SUBJECTIVE: The patient was noted comfortable at this time without any acute distress at this time. The coughing has been slowly subsiding the edema of the lower extremities. Continue resolve progressively. She was continued on the Bactrim-DS, cough has been gradually decreased. OBJECTIVE: VITAL SIGNS: Normal temperature, respiratory rate 22, heart rate of 99-102, blood pressure 126/70. Pulse oxygen saturation noted on 6 liters canula 91-99% saturation. HEENT: No acute change. NECK: Supple. CARDIOVASCULAR: S1, S2 audible. LUNGS: The patient has moderate decreased breath sounds without any wheezing or crackles at present time. ABDOMEN: Soft, nontender, bowel sounds present. EXTREMITIES: Without any acute edema. IMPRESSION: Progressive resolution of edema of the lower extremity. The patient with resolving acute on chronic hypercapnia hypoxic respiratory failure, exacerbation of chronic obstructive pulmonary disease and acute bronchitis with gram-negative infection. The BMP of the patient this morning were noted normal BUN and creatinine. Potassium remains normal as well. PLAN OF TREATMENT: The patient could be discharged to the [facility] facility for further continued care for the patient on intravenous steroids. Continue bronchodilators and antibiotics. Usual care. Ordered the supportive plan of management and care plan. NINO SHAFER MD CM:MARIEL [id number] NINO RAZA MD 04/24/17 1806 interface
--- NOTE | ~2017-04-21 | PR ---
[place], [place] PROGRESS NOTE [id number] #: [id number] ROOM: 519 DOCTOR: SONI RAZA MD,NINO BIRTHDATE: [birth year] DOS: 04/25/2017 SUBJECTIVE: The patient has not noted any ongoing acute complaints at present time. Denies symptoms of chest pain or hemoptysis. Denies symptoms of nausea, vomiting, shortness of breath, or cough. Other symptoms were resolving. OBJECTIVE: VITAL SIGNS: Normal temperature, respiratory rate15, heart rate 96, blood pressure 139/80. Pulse oxygen saturation on 6 L nasal cannula high flow was noted 90% saturation. HEENT: No acute change. NECK: Supple. CARDIOVASCULAR: S1, S2 audible. LUNGS: Without any crackles. Mild expiratory wheezing. Moderate decreased breath sounds. ABDOMEN: Soft, nontender. LABORATORY DATA: CBC today, hemoglobin 10.7, hematocrit 34.8, WBC count normal, platelet count mildly elevated 131,000. CMP is noted as normal BUN, creatinine and potassium. The CO2 was 38. IMPRESSION: Resolving acute severe Stenotrophomonas maltophilia bronchitis with acute on chronic hypercapnic hypoxic respiratory failure, chronic obstructive pulmonary disease and debility still persisted. PLAN OF MANAGEMENT: The patient has been currently planned for discharge home at the present time. He will be continued on other previous treatment plan and management as in progress. Tapering gradual reduction of the steroids will be done. Continue antibiotic at the current dose Bactrim-DS 2 tablets twice a day. NINO SHAFER MD CM:PNTRANS [id number] NINO RAZA MD 04/26/17 0008 interface
--- NOTE | ~2017-04-21 | EKG ---
[place], [place] ELECTROCARDIOGRAM REPORT NAME: AZAR REYNOSO UNIT #: [id number] ROOM: [facility] DOCTOR: SONI RAZA MD,NINO BIRTHDATE: [birth year] DOS: 04/21/2017 Time: 3:15 p.m. The electrocardiogram, patient showed normal sinus rhythm with heart rate 95 beats per minute. Right axis deviation. The patient was also noted without any changes for ischemia. NINO SHAFER MD CM:EKGRPT:ELECTROCARDIOGRAM REPORT [id number] NINO RAZA MD
--- NOTE | ~2017-04-21 | PR ---
[place], [place] PROGRESS NOTE NAME: AZAR REYNOSO UNIT #: [id number] ROOM: 519 DOCTOR: GENEVA MCKNIGHT MD BIRTHDATE: [birth year] DOS: 04/25/2017 SUBJECTIVE: The patient is not having any complaints today. OBJECTIVE: VITAL SIGNS: Graphic trend shows a pressure 154/87, pulse of 109, respirations 20, temperature 98.3. LUNGS: Clear. HEART: Regular. ABDOMEN: Obese, soft. EXTREMITIES: Without any edema this morning. LABORATORY DATA: All noted, which were all fairly within normal limits. ASSESSMENT AND PLAN: 1. Stenotrophomonas in the sputum, on Bactrim, increased dose. 2. Flu positive, improved on Tamiflu. 3. Exacerbation of chronic obstructive pulmonary disease, on IV steroids. We will cut the steroids down and she can continue receiving the IV through her MediPort at the assisted. GENEVA MCKNIGHT MD CM:PNTRANS [id number] GENEVA MCKNIGHT MD 04/25/17 2115 interface
--- NOTE | ~2017-04-21 | PR ---
[place], [place] PROGRESS NOTE [id number] UN[facility] #: [id number] ROOM: 519 DOCTOR: DARCIE MULLIGAN MD BIRTHDATE: [birth year] DOS: 04/23/2017 SUBJECTIVE: The patient is feeling quite weak and still complaining of shortness of breath. PHYSICAL EXAMINATION: GENERAL APPEARANCE: The patient is alert and oriented x 3, in no visible distress. VITAL SIGNS: Blood pressure 154/79, heart rate 90 beats per minute, breathing 19 times per minute, and temperature of 98.6 degrees Fahrenheit. HEENT AND NECK: Exam within normal limits. CARDIOVASCULAR SYSTEM: Heart rate is regular in rate and rhythm. S1 and S2 normally audible. LUNGS: Decreased breath sounds all over on lung auscultation. ABDOMEN: Soft, nontender. No obvious organomegaly. Bowel sounds are present. EXTREMITIES: Generalized weakness. IMPRESSION AND PLAN: 1. The patient is with influenza A, being treated with Tamiflu. 2. Acute exacerbation of chronic obstructive pulmonary disease with acute or chronic respiratory failure. The patient is being treated with corticosteroids, Bactrim, and Tamiflu. 3. Recent bronchoscopy cultures positive for Stenotrophomonas maltophilia being treated with Bactrim. 4. Chronic pain syndrome. The patient is being treated. 5. Generalized weakness and adult failure to thrive. The patient to work with physical therapy. DARCIE MULLIGAN MD CM:PNTRANS [phone] DARCIE MULLIGAN MD 04/23/17 2008 interface
[2017-04-21 14:27] VITALS: BP 110/75
[~2017-04-21 14:27] MED LIST changes: +ALLERGY RELIE15.8 ML NAS; -ALPRAZOLAM1 M2 PO; +BUMETANIDE1 MG PO; -BUMEX2.5 MG/10 PO; +CARDIZEM60 MG PO; -FLUTICASON0.05 MG/AC NAS; +FUROSEMIDE40 MG/4 ML IV; +INCRUSE ELLI62.5 MCG INH; -MORPHINE S10 MG/5 M1 PO; +MORPHINE S10 MG/5 M2 PO; +TOPAMAX25 M3 PO; -TOPAMAX50 MG PO; +VITAMIN D5000 UNI1 PO; +XANAX0.5 MG PO; +XARE15TA PO
[2017-04-21 15:05] LABS: BASO % 0.1 % (0.0-1.0); HEMATOCRIT 33.3 % (37.0-47.0); HEMOGLOBIN 10.3 g/dl (12.0-16.0); LYMPH # 0.6 10*3/uL (1.3-4.4); LYMPH % 6.1 % (27.0-41.0); MEAN CELL VOLUME 93.5 fl (81.0-99.0); MEAN CORPUSCULAR HGB 28.9 pg (27.0-31.0); MEAN CORPUSCULAR HGB CONC 30.9 g/dl (33.0-37.0); MEAN PLATELET VOLUME 8.6 fl (9.6-12.3); MONO # 0.5 10*3/uL (0.1-1.0); MONO % 4.8 % (3.0-9.0); NEUT # 8.2 10*3/uL (2.3-7.9); NEUT % 88.1 % (47.0-73.0); NUCLEATED RED BLOOD CELL 0.2 % (0.0-0.0); PLATELET COUNT AUTOMATED 353 10*3/uL (130-400); RED BLOOD COUNT 3.56 10*6/uL (4.10-5.10); RED CELL DISTRI WIDTH 18.2 % (0-14.5); WHITE BLOOD COUNT 9.3 10*3/uL (4.8-10.8)
[2017-04-21 15:14] LABS: ACT PARTIAL THROMBO TIME 30.7 SECONDS (20.8-31.5)
[2017-04-21 15:21] LABS: ALKALINE PHOSPHATASE 117 U/L (45-117); BUN 17 mg/dl (7-24); CHLORIDE 93 mmol/L (98-107); CREATININE 0.76 mg/dL (0.55-1.02); POTASSIUM 3.8 mmol/L (3.5-5.1); SGOT/AST 37 IU/L (3-35); SGPT/ALT 31 U/L (12-78); SODIUM 134 mmol/L (136-145); TOTAL PROTEIN 6.6 gm/dL (6.4-8.2)
[2017-04-21 15:53] VITALS: BP 102/72
[2017-04-21 16:05] LABS: BILIRUBIN NEGATIVE (NEGATIVE); BLOOD 1+ (NEGATIVE); CLARITY CLEAR (CLEAR); COLOR YELLOW (YELLOW); GLUCOSE NEGATIVE (NEGATIVE); KETONE NEGATIVE (NEGATIVE); LEUKO ESTERASE NEGATIVE (NEGATIVE); NITRITE NEGATIVE (NEGATIVE); UROBILINOGEN 0.2 E.U./dl (0.2-1.0)
[2017-04-21 16:25] LABS: BACTERIA TRACE; HYALINE CAST 20-25; WBC 0-2 wbc/hpf (0-5)
[2017-04-21] MEDS ORDERED: VENTOLIN 02.5 MG/3 M INH (16:37)
[2017-04-21] MEDS ORDERED: LIDOCAINE T (16:52)
[2017-04-21 16:57] LABS: ABG BASE EXCESS 6.2 mmol/L (-2.0-2.0); ABG HCO3 32.1 mmol/l (22-26); ARTERIAL BLOOD GAS PCO2 56.5 mmHg (35-45); ARTERIAL BLOOD GAS PH 7.373 (7.35-7.45); ARTERIAL BLOOD GAS PO2 70.3 mmHg (80-90)
[2017-04-21 17:28] VITALS: BP 127/69
[2017-04-21 18:00] VITALS: BP 118/82
[2017-04-21] MEDS ORDERED: ALENDRONATE SOD70 M1 PO (18:55)
[2017-04-21] MEDS ORDERED: SEPTDS PO (18:56)
[2017-04-21] MEDS ORDERED: DULCOLAX10 M1 R (18:59)
[2017-04-21] MEDS ORDERED: LASIX10 MG/ML IV (19:04)
[2017-04-21] MEDS ORDERED: INCRUSE ELLI62.5 MCG INH (19:07)
[2017-04-21] MEDS ORDERED: MOM30 M1 PO (19:08)
[2017-04-21] MEDS ORDERED: NOVOLOG10 ML SC (19:12)
[2017-04-21] MEDS ORDERED: SOLU-MEDRO40 MG/1 ML IV (19:15)
[2017-04-21] MEDS ORDERED: ZOFRAN4 MG PO (19:19)
[2017-04-21] MEDS ORDERED: FLEET ENEMA 13133 ML R (19:20)
[2017-04-21] MEDS ORDERED: 24 HOUR ALLER15.8 ML NAS (19:22)
[2017-04-21 20:00] VITALS: BP 128/75
[2017-04-22] VITALS (7 sets, daily range): BP systolic 110–140; BP diastolic 70–77
[2017-04-22] MEDS ORDERED: TAMIFLU 75MG CA75 MG PO (08:46)
[2017-04-22] MEDS ORDERED: SEPTDS PO (08:46)
[2017-04-23] VITALS: BP 132/75
[2017-04-23 07:25] LABS: HEMATOCRIT 32.5 % (37.0-47.0); MEAN CELL VOLUME 93.9 fl (81.0-99.0); MEAN CORPUSCULAR HGB 28.9 pg (27.0-31.0); MEAN CORPUSCULAR HGB CONC 30.8 g/dl (33.0-37.0); MEAN PLATELET VOLUME 9.3 fl (9.6-12.3); PLATELET COUNT AUTOMATED 378 10*3/uL (130-400); RED BLOOD COUNT 3.46 10*6/uL (4.10-5.10); RED CELL DISTRI WIDTH 18.6 % (0-14.5); WHITE BLOOD COUNT 8.2 10*3/uL (4.8-10.8)
[2017-04-23 08:00] VITALS: BP 124/80
[2017-04-23 08:06] LABS: PLATELET SUFFICIENCY NORMAL (NORMAL); TOTAL CELLS COUNTED 100 #CELLS
[2017-04-23 08:12] LABS: ALBUMIN 2.7 gm/dl (3.1-4.5); ALKALINE PHOSPHATASE 101 U/L (45-117); BUN 22 mg/dl (7-24); CHLORIDE 92 mmol/L (98-107); CREATININE 0.54 mg/dL (0.55-1.02); POTASSIUM 3.8 mmol/L (3.5-5.1); SGOT/AST 25 IU/L (3-35); SGPT/ALT 28 U/L (12-78); SODIUM 136 mmol/L (136-145); TOTAL PROTEIN 6.1 gm/dL (6.4-8.2)
[2017-04-23 12:00] VITALS: BP 116/76
[2017-04-23 16:00] VITALS: BP 154/79
[2017-04-23 20:00] VITALS: BP 133/77
[2017-04-24] VITALS: BP 116/76
[2017-04-24 07:00] VITALS: BP 126/70
[2017-04-24 07:11] LABS: HEMATOCRIT 33.3 % (37.0-47.0); HEMOGLOBIN 10.4 g/dl (12.0-16.0); MEAN CELL VOLUME 94.1 fl (81.0-99.0); MEAN CORPUSCULAR HGB 29.4 pg (27.0-31.0); MEAN CORPUSCULAR HGB CONC 31.2 g/dl (33.0-37.0); MEAN PLATELET VOLUME 9.2 fl (9.6-12.3); PLATELET COUNT AUTOMATED 383 10*3/uL (130-400); RED BLOOD COUNT 3.54 10*6/uL (4.10-5.10); RED CELL DISTRI WIDTH 18.7 % (0-14.5); WHITE BLOOD COUNT 8.4 10*3/uL (4.8-10.8)
[2017-04-24 07:17] LABS: ALBUMIN 2.8 gm/dl (3.1-4.5); ALKALINE PHOSPHATASE 95 U/L (45-117); BUN 21 mg/dl (7-24); CHLORIDE 94 mmol/L (98-107); CREATININE 0.61 mg/dL (0.55-1.02); POTASSIUM 4.5 mmol/L (3.5-5.1); SGOT/AST 29 IU/L (3-35); SGPT/ALT 25 U/L (12-78); SODIUM 137 mmol/L (136-145)
[2017-04-24 07:50] LABS: PLATELET SUFFICIENCY NORMAL (NORMAL); TOTAL CELLS COUNTED 100 #CELLS
[2017-04-24 08:00] VITALS: BP 126/70
[2017-04-24 12:00] VITALS: BP 128/74
[2017-04-24 16:00] VITALS: BP 119/80
[2017-04-24 20:00] VITALS: BP 120/70
[2017-04-25] VITALS: BP 118/80
[2017-04-25 07:07] LABS: BASO % 0.1 % (0.0-1.0); HEMATOCRIT 34.8 % (37.0-47.0); HEMOGLOBIN 10.7 g/dl (12.0-16.0); LYMPH # 0.7 10*3/uL (1.3-4.4); LYMPH % 9.8 % (27.0-41.0); MEAN CELL VOLUME 93.8 fl (81.0-99.0); MEAN CORPUSCULAR HGB 28.8 pg (27.0-31.0); MEAN CORPUSCULAR HGB CONC 30.7 g/dl (33.0-37.0); MEAN PLATELET VOLUME 9.4 fl (9.6-12.3); MONO # 0.4 10*3/uL (0.1-1.0); MONO % 5.8 % (3.0-9.0); NEUT # 5.6 10*3/uL (2.3-7.9); NEUT % 81.7 % (47.0-73.0); PLATELET COUNT AUTOMATED 431 10*3/uL (130-400); RED BLOOD COUNT 3.71 10*6/uL (4.10-5.10); RED CELL DISTRI WIDTH 18.5 % (0-14.5); WHITE BLOOD COUNT 6.9 10*3/uL (4.8-10.8)
[2017-04-25 07:38] LABS: CHLORIDE 93 mmol/L (98-107); POTASSIUM 4.6 mmol/L (3.5-5.1); SODIUM 136 mmol/L (136-145)
[2017-04-25 07:44] LABS: ALBUMIN 3.1 gm/dl (3.1-4.5); ALKALINE PHOSPHATASE 104 U/L (45-117); BUN 21 mg/dl (7-24); SGOT/AST 24 IU/L (3-35); SGPT/ALT 26 U/L (12-78); TOTAL PROTEIN 6.5 gm/dL (6.4-8.2)
[2017-04-25 08:00] VITALS: BP 154/87
[2017-04-25] MEDS ORDERED: SEPTDS PO (08:22)
[2017-04-25 11:47] VITALS: BP 139/80
== END 2017-04-25 13:46 | disposition home or self-care (01) | DRG 189 ==
LOC: ED 14:27 → 5E 16:23 → EDHOLD 16:23 → ICCU 16:23 → 5E 04-22 12:18
PROVIDERS: Emergency Medicine; Internal Medicine Critical Care Medicine
PROC: 5A09357 Assistance with Respiratory Ventilation, Less than 24 Consecutive Hours, Continuous Positive Airway Pressure (ICD-10-PCS; principal; 2017-04-21)
PROC: 5A09357 Assistance with Respiratory Ventilation, Less than 24 Consecutive Hours, Continuous Positive Airway Pressure (ICD-10-PCS; 2017-04-23)
PROC: 5A09357 Assistance with Respiratory Ventilation, Less than 24 Consecutive Hours, Continuous Positive Airway Pressure (ICD-10-PCS; 2017-04-25)
DX: J96.22 Acute and chronic respiratory failure with hypercapnia (principal); I27.81 Cor pulmonale (chronic); G83.9 Paralytic syndrome, unspecified; J44.0 Chronic obstructive pulmonary disease with (acute) lower respiratory infection; J44.1 Chronic obstructive pulmonary disease with (acute) exacerbation; J96.21 Acute and chronic respiratory failure with hypoxia; F41.1 Generalized anxiety disorder; J11.1 Influenza due to unidentified influenza virus with other respiratory manifestations; G89.4 Chronic pain syndrome; B96.89 Other specified bacterial agents as the cause of diseases classified elsewhere; M81.0 Age-related osteoporosis without current pathological fracture; J20.9 Acute bronchitis, unspecified; M54.9 Dorsalgia, unspecified; R62.7 Adult failure to thrive; Z88.8 Allergy status to other drugs, medicaments and biological substances; Z79.899 Other long term (current) drug therapy; Z87.01 Personal history of pneumonia (recurrent); Z87.891 Personal history of nicotine dependence; Z83.3 Family history of diabetes mellitus; Z80.52 Family history of malignant neoplasm of bladder; Z82.49 Family history of ischemic heart disease and other diseases of the circulatory system; Z87.311 Personal history of (healed) other pathological fracture

== ENCOUNTER → 2017-06-13 | Day surgery (SDC) | payer MEDICARE ==
[~2017-06-13] MED LIST changes: +24 HOUR ALLER15.8 ML NAS; +DULCOLAX10 M1 R; +FLEET ENEMA 13133 ML R; +LASIX10 MG/ML IV; +LIDOCAINE T; +MOM30 M1 PO; +NOVOLOG10 ML SC; +SEPTDS PO; +SOLU-MEDRO40 MG/1 ML IV; +TAMIFLU 75MG CA75 MG PO; +VENTOLIN 02.5 MG/3 M INH; +ZOFRAN4 MG PO
--- NOTE | ~2017-06-13 | PROC NOTE ---
[place], [place] PROCEDURE NOTE [facility] [id number] UNIT #: [id number] ROOM: DOCTOR: SONI RAZA MD,NINO BIRTHDATE: [birth year] DOS: 06/13/2017 PREOPERATIVE DIAGNOSIS: Persistent severe nonproductive cough with intermittent wheezing and shortness of breath. POSTOPERATIVE DIAGNOSIS: Removal of moderate amount of mucus impaction from endobronchial tree bilaterally. PROCEDURE DESCRIPTION: Informed consent obtained from the patient. She was brought to the OR and placed in supine position. Conscious sedation administered by the Anesthesia Department. After achieving proper sedation, airway introduced into the mouth. Bronchoscope advanced through the airway into laryngeal area. The epiglottis and vocal were seen, which were moving symmetrical with the movement. Bronchoscope advanced to vocal cord and tracheal lumen. The tracheal lumen was identified and noted with small moderate amount of thick mucus secretion that was suctioned out at the sammy level. The sammy was noted sharp. Right upper, right lower, left upper, lingula, lower lobe bronchi were all examined. Moderate amount of thick white mucus plugs were present in endobronchial tree bilaterally, suctioned out with the help of normal saline wash, and sent for culture. The procedure was well tolerated by the patient without difficulty. Postoperative findings will be discussed with the patient once the patient recovers from the effects of acute sedation. NINO SHAFER MD CM:PROCNOTE:PROCEDURE NOTE [id number] NINO RAZA MD
[2017-06-13 10:12] VITALS: BP 124/67
[2017-06-13 10:27] VITALS: BP 118/72
[2017-06-13 10:42] VITALS: BP 117/65
[2017-06-14 13:13] LABS: ACID FAST SPEC PROCESSING Concentration (.)
== END | disposition home or self-care (01) ==
LOC: SDC 06-12 14:45
PROVIDERS: Internal Medicine Critical Care Medicine
DX: J98.09 Other diseases of bronchus, not elsewhere classified (principal); J44.9 Chronic obstructive pulmonary disease, unspecified; Z79.899 Other long term (current) drug therapy; F32.9 Major depressive disorder, single episode, unspecified; Z98.890 Other specified postprocedural states; Z88.8 Allergy status to other drugs, medicaments and biological substances

== ENCOUNTER 2018-03-16 11:01 | Inpatient (IN) | payer MEDICARE, OTHER ==
[~2018-03-16] VITALS: Ht 152.4 cm; Wt 41.4 kg
--- NOTE | ~2018-03-16 | PR ---
[place], [place] PROGRESS NOTE [facility]: [id number] #: [id number] ROOM: 522 DOCTOR: DARCIE MULLIGAN MD BIRTHDATE: [birth year] DOS: 03/18/2018 SUBJECTIVE: The patient is feeling slightly better this morning. PHYSICAL EXAMINATION: VITAL SIGNS: Blood pressure 130/70, afebrile, heart rate of 97 beats per minute, breathing normally. GENERAL APPEARANCE: The patient is alert and oriented x 3, in no visible distress. Generalized weakness. HEENT AND NECK: Exam within normal limits. CARDIOVASCULAR SYSTEM: Heart rate is regular in rate and rhythm. S1 and S2 normally audible. LUNGS: Decreased breath sounds. ABDOMEN: Soft, nontender. No obvious organomegaly. Bowel sounds are present. EXTREMITIES: Without significant cyanosis or edema. IMPRESSION: 1. Gram-positive cocci in pairs and clusters with blood cultures to be evaluated by Infectious Disease specialist. 2. Acute over chronic respiratory failure with acute exacerbation of chronic obstructive pulmonary disease. The patient is being treated with bronchodilators, corticosteroids, oxygen, antibiotics and being followed by [facility], Dr. Gibbons. 3. T8 compression fracture with significant back pains to be evaluated by Dr. Garcia for kyphoplasty. MRI of the thoracic spine is pending. 4. Benign essential hypertension. Blood pressure being monitored and treated. 5. History of deep vein thrombosis. The patient remains anticoagulated with Xarelto. 6. Positive blood cultures to be evaluated by an Infectious Disease specialist. DARCIE MULLIGAN MD CM:PNTRANS [id number] DARCIE MULLIGAN MD 04/09/18 0859 interface
--- NOTE | ~2018-03-16 | PR ---
[place], [place] PROGRESS NOTE [id number] #: [id number] ROOM: 522 DOCTOR: DARCIE MULLIGAN MD BIRTHDATE: [birth year] DOS: 03/24/2018 SUBJECTIVE: The patient is starting to feel better. OBJECTIVE: GENERAL APPEARANCE: The patient is alert and oriented x 3, in no visible distress. Generalized asthenia. Generalized weakness and muscle wasting. VITAL SIGNS: Blood pressure 118/72, heart rate of 100 beats per minute, breathing 22 times per minute, temperature 98.2 degrees Fahrenheit. HEENT AND NECK: Exam within normal limits. CARDIOVASCULAR SYSTEM: Heart rate is regular in rate and rhythm. S1 and S2 normally audible. LUNGS: Decreased breath sounds all over. Slight expiratory wheezing on lung auscultation. ABDOMEN: Soft, nontender. No obvious organomegaly. Bowel sounds are present. EXTREMITIES: Without significant cyanosis or edema. IMPRESSION: 1. The patient is status post successful T7 vertebroplasty by Dr. Garcia today for a compression fracture and significant back pains. 2. Staphylococcus epidermidis, positive blood cultures with infected MediPort, which has been removed. The patient is being treated for suspected endocarditis, which did not show up on 2D echocardiogram with 4 weeks of IV vancomycin. 3. Severe end-stage chronic obstructive pulmonary disease with acute exacerbation. 4. Advanced adult failure to thrive and disability. The patient is working with physical therapy. 5. History of deep venous thrombosis, treated with anticoagulation with Xarelto. DARCIE MULLIGAN MD CM:PNTRANS [phone] DARCIE MULLIGAN MD 04/09/18 0858 interface
--- NOTE | ~2018-03-16 | CON ---
[place], [place] REPORT OF CONSULTATION [facility]: [facility]: [id number] UNIT #: [id number] ROOM: 522 DOCTOR: NINO CAR MD BIRTHDATE: [birth year] DOS: 03/17/2018 PULMONARY CONSULTATION REQUESTED BY: Dr. Elidia Saleh/Dr. Park. REASON FOR CONSULTATION: For assessment of COPD exacerbation. HISTORY OF PRESENT ILLNESS: This is a 57-year-old white female with history of very advanced end-stage COPD with emphysema and chronic hypercapnic hypoxic respiratory failure, dependency on the corticosteroids. The patient has been noted with gradual worsening of the respiratory symptoms starting close to Grady time. The symptoms were noted progressive and was noted significantly worse. The patient was admitted to the hospital on 03/16/2018. The patient denies any symptoms of fever or chills, were noted severe weakness and fatigue. Denies symptoms of coughing with excessive chest congestion, unable to expectorate sputum at all. She was also reported symptoms of wheezing. The patient was complaining of pain in the back area as well worsened with anybody movements. REVIEW OF SYSTEMS: CONSTITUTIONAL SYMPTOMS: Fatigue and tiredness noted without any symptoms of fever or chills at home. EYES: Denies any burning, redness, or tenderness. EARS, NOSE, THROAT SYMPTOMS: Denies sore throat, hoarseness, otalgia, postnasal drainage, or epistaxis. CARDIOVASCULAR: Denies angina pain, edema, and pain of the lower extremities. GASTROINTESTINAL: Denies dysphagia, nausea, vomiting, diarrhea, abdominal pain, hematemesis, melena, or hematochezia. SKIN: Denies abnormal lesions or rashes. MUSCULOSKELETAL SYMPTOMS: Pain was reported in the mid thoracic spine area. GENITOURINARY: Denies dysuria, urinary incontinence, hematuria, or suprapubic pain. CENTRAL NERVOUS SYSTEM: Severe general weakness and fatigue were noted without any reported symptoms of focal neurologic deficit. PAST MEDICAL HISTORY: 1. The patient was known with multiple prolonged hospitalization in the past as well as management in the nursing facility for several weeks. 2. The patient with advanced end-stage centrilobular emphysema. 3. Chronic hypoxic respiratory failure with dependence oxygen at 5-6 liter nasal cannula. 4. Chronic hypercapnic respiratory failure. 5. Chronic metabolic alkalosis with hypercarbia. 6. Uncomplicated persistent bronchial asthma. 7. Allergic rhinitis. 8. Chronic low BMI. 9. Migrainous headache. 10. History of chronic spastic paresis. 11. Past history of pneumothorax. The patient's left side requiring chemical [place], [place] REPORT OF CONSULTATION NAME: AZAR REYNOSO UNIT #: [id number] ROOM: 522 DOCTOR: SONI RAZA MD,NINO BIRTHDATE: [birth year] pleurodesis, which are noted ineffective later requiring VATS procedure for the management of that. 12. Restless leg syndrome. 13. Anxiety disorder. 14. Osteoporosis. 15. Several compression fractures of the lumbar and thoracic spine. Some of them has been treated with vertebroplasty. 16. Deep venous thrombosis, the patient on Eliquis. 17. Chronic steroid dependency. PAST SURGICAL HISTORY: 1. Therapeutic bronchoscopy. The last one was done in 05/2017. 2. Removal of benign cysts from several parts of the body. 3. Left chest thoracostomy. 4. VATS procedure, left side in 2014. 5. Past intubation and mechanical ventilation. 6. MediPort insertion. 7. Vertebroplasty. SOCIAL HISTORY: The patient is , living at home. There was no history of alcohol use or illicit drug use. Tobacco use was noted from age of 20-year-old, 2 packs of cigarettes per day, discontinued many years ago. There is no history of alcohol use or illicit use. FAMILY HISTORY: The patient's father passed at the age 70, complications of congestive heart failure. Mother at 57-year-old, complication of COPD. CURRENT MEDICATIONS: Administered were noted as use of prednisone 20 mg daily, Lexapro, Bumex, omeprazole, Solu-Medrol 20 mg every 8 hours, Topamax, Requip, Xarelto, potassium chloride, Cardizem-CD, Flexeril, DuoNeb, albuterol, and others. DRUG ALLERGIES: The patient was noted as allergies: 1. PRIMAXIN. 2. CEFEPIME. PHYSICAL EXAMINATION: GENERAL: A 57-year-old female patient who has been currently lying in the bed, appears to be very sick at this time. Height recorded on admission as 5 feet, weight of 91 pounds, BMI 17.8. VITAL SIGNS: The patient's temperature recorded as normal, respiratory rate range between 22-18, heart rate of 101-98. The blood pressure ranges between 131/54-137/69. Pulse oxygen saturation on 5 liters nasal cannula 99% saturation. HEENT: Examination shows head was atraumatic. Eyes nonicterus. NECK: Supple. Oral mucosa was moist. CARDIOVASCULAR: S1, S2 is audible. LUNGS: The patient was noted diffuse expiratory wheezing with scattered rhonchorous breathing. ABDOMEN: Soft, nontender. Bowel sounds present. [place], [place] REPORT OF CONSULTATION NAME: AZAR REYNOSO UNIT #: [id number] ROOM: 522 DOCTOR: SONI RAZA MD,NINO BIRTHDATE: [birth year] EXTREMITIES: The patient does not show any acute edema. MUSCULOSKELETAL: Noted without any acute deformities at the present time. VISIBLE SKIN: No lesions or rashes. CENTRAL NERVOUS SYSTEM: The patient's cranial nerves 2-12 intact. LABORATORY DATA: PT and PTT that was done yesterday were noted as normal. Lactic acid 0.9 yesterday. CMP that was done yesterday, glucose 125, BUN 18, creatinine was normal. Remaining CMP normal. Influenza A and B, nasal washing antigen negative on admission. Blood culture, which was done in the emergency on 03/16/2018 both aerobic and anaerobic water were noted gram-positive cocci in clusters. Chest x-ray that was 1 view, which taken in the Emergency Room noted severe emphysema changes with scarring and bullous emphysema was noted in the lungs bilaterally, greater on the left than the right side. There was no visible pulmonary infiltration. X-ray of the thoracic spine was also obtained were noted multiple compression fractures. The patient noted with a severe fracture of T8. IMPRESSION: 1. The patient will be admitted to the hospital. The patient was noted with bacteremia, most likely related to the MediPort would be considered very likely. 2. The patient with cvyyt-oa-thcumvq hypercapnic hypoxic respiratory failure was suspected. 3. Advanced emphysema was also noted with past history of pneumothorax on the left side as well treated with the VATS procedure. 4. Multilevel compression fracture with T8 compression fracture, resulting for pain, which noticed severe chest pain. 5. Chronic steroid dependency as well. Use of prednisone at home. 6. The patient with fluoroscopy for venous access was also noted requiring use of the MediPort. PLAN OF MANAGEMENT: The patient has been ordered additional 2 sets of cultures. Culture from the MediPort to assess the possible bacteremia related to the MediPort. She will be started on empirical vancomycin for the coverage of Staphylococcus aureus infection including MRSA coverage. Pain management. Arterial blood gas will be ordered for this patient to assess the ventilatory status and use of the noninvasive ventilator BiPAP with current settings. Sputum for Gram stain culture was ordered. The respiratory virus panel was ordered. Influenza A and B, nasal washing antigen were already tested and noted negative. She will be continued on current dose of corticosteroids. Sputum for Gram stain culture was also ordered. Other additional treatment changes done based on progression of illness. At this time, the patient would be assessed. If she stabilized for the reassessment possible vertebroplasty that may be required for the medical management of the pain. However, at this time, the patient noted acutely ill and would not be able to undergo any kind of further assessment of procedures including MRI or vertebroplasty. Symptomatic management of pain for the patient will be continued. Discussion of the code status with the patient again and the family member. Usual care, other supportive plan of management therapy and care plan of treatment. Thanks for allowing me to participate in care of this patient. [place], [place] REPORT OF CONSULTATION NAME: AZAR REYNOSO Yunier UNIT #: [id number] ROOM: 522 DOCTOR: NINO CAR MD BIRTHDATE: [birth year] NINO SHAFER MD CM:CONSTR:REPORT OF CONSULTATION 1304 10/23/18 0815 interface
--- NOTE | ~2018-03-16 | PR ---
[place], [place] PROGRESS NOTE NAME: [facility] [id number] UNIT #: [id number] ROOM: [facility] DOCTOR: DARCIE MULLIGAN MD BIRTHDATE: [birth year] DOS: 03/20/2018 SUBJECTIVE: The patient is breathing somewhat better and has been scheduled for a bronchoscopy on Friday. OBJECTIVE: VITAL SIGNS: Blood pressure 133/85, heart rate of 82 beats per minute, breathing 15-24 times per minute and afebrile. GENERAL APPEARANCE: The patient is alert and oriented x 3, in no visible distress except for ischemia. HEENT AND NECK: Exam within normal limits. CARDIOVASCULAR SYSTEM: Heart rate is regular in rate and rhythm. S1 and S2 normally audible. LUNGS: Clear to auscultation. ABDOMEN: Soft, nontender. No obvious organomegaly. Bowel sounds are present. EXTREMITIES: Without significant cyanosis or edema. IMPRESSION AND PLAN: 1. Generalized weakness, decreased breath sounds and severe rhonchi and expiratory wheezing all over on lung auscultation. 2. Bacteremia with Staphylococcus epidermidis. Echocardiogram performed to look for endocarditis. 3. Acute exacerbation of severe underlying chronic obstructive pulmonary disease and acute over chronic respiratory failure. The patient being monitored closely in the ICU and waiting for bronchoscopy by Dr. Gibbons. 4. The patient is status post removal of MediPort from the left anterior chest wall for Staphylococcus epidermidis bacteremia. 5. T8 compression fracture. The patient is to be evaluated for kyphoplasty with acute over chronic mid back pains. 6. Benign essential hypertension, treated and monitored. 7. History of deep venous thrombosis. The patient is anticoagulated with Xarelto. DARCIE MULLIGAN MD CM:PNTRANS [phone] DARCIE MULLIGAN MD 03/21/18 0116 interface
--- NOTE | ~2018-03-16 | PR ---
[place], [place] PROGRESS NOTE [id number] UNIT #: [id number] ROOM: 522 DOCTOR: DARCIE MULLIGAN MD BIRTHDATE: [birth year] DOS: 03/23/2018 OBJECTIVE: VITAL SIGNS: Blood pressure 145/84, heart rate of 87 beats per minute, breathing 17 times per minute, afebrile. GENERAL APPEARANCE: The patient is alert and oriented x 3, in no visible distress. Asthenia, generalized weakness and muscle wasting. HEENT AND NECK: Exam within normal limits. CARDIOVASCULAR SYSTEM: Heart rate is regular in rate and rhythm. S1 and S2 normally audible. LUNGS: Decreased breath sounds all over. ABDOMEN: Soft, nontender. No obvious organomegaly. Bowel sounds are present. EXTREMITIES: Without significant cyanosis or edema. IMPRESSION: The patient with high-grade Staphylococcus epidermidis bacteremia, status post infected MediPort removal and repeat cultures have been negative. The patient's 2D echocardiogram did not show any vegetation and DAVID not performed because of her end-stage lung disease. PLAN: 1. Continue IV antibiotics for 4 weeks followed by repeat cultures. 2. Severe end-stage chronic obstructive pulmonary disease with acute exacerbation, slowly improving with treatment. 3. Advanced adult failure to thrive. building services supervisor arranging for antibiotics and rehab. 4. Acute compression fracture at T8. Dr. Garcia has been consulted for possible vertebroplasty. 5. Advanced adult failure to thrive. The patient working with physical therapy. 6. The patient with history of DVT, anticoagulated with Xarelto. DARCIE MULLIGAN MD CM:PNTRANS [phone] DARCIE MULLIGAN MD 03/24/18 1054 interface
--- NOTE | ~2018-03-16 | PR ---
[place], [place] PROGRESS NOTE NAME: AZAR REYNOSO UNIT #: [id number] ROOM: 522 DOCTOR: NINO CAR MD BIRTHDATE: [birth year] DOS: 03/23/2018 PULMONARY PROGRESS NOTE SUBJECTIVE: The patient was noted with the similar symptoms of severe nonproductive cough and chest congestion. The shortness of breath was noted with exertion, sometime at rest. Denies any wheezing. Denies symptoms of chest pain or any symptoms of hemoptysis. The patient has postnasal drainage. Denies any epistaxis, nausea, vomiting, diarrhea, abdominal pain, hematemesis, melena, or hematochezia. Remaining systems were reviewed. They were noted all negative. OBJECTIVE: VITAL SIGNS: For the patient which has been recorded shows a normal temperature, respiratory rate 16, heart rate of 74-100, blood pressure 149/81-159/99. The pulse oxygen saturation on 6 liters nasal cannula 99% saturation. BiPAP 98% saturation as well earlier. HEENT: Examination shows head was atraumatic. Eyes: No icterus. NECK: Supple. CARDIOVASCULAR: S1, S2 audible. LUNGS: The patient was noted without any crackles. Decreased breath sounds with expiratory wheezing. ABDOMEN: Soft, nontender. EXTREMITIES: No acute edema. MUSCULOSKELETAL: Chronic senile kyphosis. VISIBLE SKIN: No lesions or rashes. CENTRAL NERVOUS SYSTEM: The patient no gross focal neurologic deficit. IMPRESSION: 1. The patient who has been currently noted with ongoing severe acute exacerbation of chronic obstructive pulmonary disease. 2. Acute on chronic hypercapnic hypoxic respiratory failure. For bronchoscopy currently noted n.p.o. to be done today. The resolution of bacteremia related to the MediPort as Staphylococcus epidermidis. There was no clinical evidence of endocarditis. PLAN OF MANAGEMENT: Proceed with the fiberoptic bronchoscopy after that the patient will have a PICC line inserted as well for the IV infusions administration. Any changes necessary for the patient as needed will be done after the bronchoscopy. [place], [place] PROGRESS NOTE NAME: AZAR REYNOSO UNIT #: [id number] ROOM: 522 DOCTOR: NINO CAR MD BIRTHDATE: [birth year] NINO SHAFER MD CM:PNTRANS [id number] NINO RAZA MD 03/23/18 2346 interface
--- NOTE | ~2018-03-16 | PR ---
[place], [place] PROGRESS NOTE [facility]: [id number] UNIT #: [id number] ROOM: 522 DOCTOR: ANGELES BIRTHDATE: [birth year] DOS: 03/22/2018 SUBJECTIVE: The patient is a pleasant 57-year-old female we are following for high-grade Staph epidermis bacteremia that was due to an infected MediPort. She is status post MediPort removal. Repeat blood cultures from the remain sterile. She had positive blood cultures from March 16, March 17 and March 18. Her MediPort was removed. There is no tip culture. She is alert and oriented. Denies any nausea, vomiting or diarrhea. She does have increased shortness of breath from baseline, loose cough, nonproductive. No fevers or shaking chills. No rash or itch. Should be receiving a PICC line tomorrow. Feels fairly well. LABORATORY DATA: From March 21, WBCs 10.4, platelets 405; BUN 22, creatinine 0.53, sodium 141. LFTs within normal limits. Albumin 2.7. Cultures as reviewed above. OBJECTIVE: VITAL SIGNS: Temperature 98.0, pulse 85, respirations 16, BP 139/77. GENERAL: A 57-year-old female, in no acute distress. HEENT: Normocephalic. No thrush. Mucous membranes somewhat tacky. NECK: No cervical lymphadenopathy. LUNGS: Diminished bilaterally throughout. Respirations even and unlabored. HEART: Regular rhythm. No murmur appreciated. Left chest incision is well approximated. No discharge or erythema. ABDOMEN: Soft, nondistended. EXTREMITIES: Trace edema bilateral lower extremities. Hep-Lock in the right upper extremity. No phlebitis. SKIN: Warm, dry, free of rashes. ASSESSMENT: High-grade Staphylococcus epidermidis bacteremia due to an infected MediPort, now status post MediPort removal. DAVID not done due to the patient's compromised pulmonary status and risk of not being able to be extubated. She did have a 2D echocardiogram, which did not demonstrate a vegetation. Repeat blood cultures remain sterile from the . PLAN: She is to continue IV vancomycin for a total of 4 weeks from MediPort removal. She will need repeat blood cultures 2 weeks after completing the IV vancomycin and she is planning on going to a shelter facility to complete her antibiotics. ADDENDUM I agree with the assessment and plan done by the nurse practitioner, Nina Potter. I reviewed the labs and imaging, made the necessary changes in the note. NINA POTTER CNP [place], [place] PROGRESS NOTE NAME: AZAR POTTER UNIT #: [id number] ROOM: 522 DOCTOR: ANGELES ROWEJUNE BIRTHDATE: [birth year] Nikajosh Abdi MD CM:PNTRANS [id number] NINA POTTER CNP 04/23/18 1049 interface
--- NOTE | ~2018-03-16 | PR ---
[place], [place] PROGRESS NOTE NAME[id number] UNIT #: [id number] ROOM: [facility]- DOCTOR: DARCIE MULLIGAN MD BIRTHDATE: [birth year] DOS: SUBJECTIVE: The patient's breathing is somewhat better as compared to yesterday. OBJECTIVE: GENERAL APPEARANCE: The patient is alert and oriented x 3, in no visible distress. VITAL SIGNS: Blood pressure 144/77, heart rate 95 beats per minute, breathing 20 times per minute, temperature 99 degrees Fahrenheit. HEENT AND NECK: Exam within normal limits. CARDIOVASCULAR SYSTEM: Heart rate is regular in rate and rhythm. S1 and S2 normally audible. LUNGS: Decreased breath sounds all over and expiratory wheezing all over on lung auscultation. ABDOMEN: Soft, nontender. No obvious organomegaly. Bowel sounds are present. EXTREMITIES: Without significant cyanosis or edema. IMPRESSION AND PLAN: 1. The patient with acute exacerbation of chronic obstructive pulmonary disease with acute over chronic respiratory failure with severe underlying disease, slowly improving with treatment. Benign essential hypertension, being treated followed and controlled. 2. History of deep venous thrombosis. The patient is anticoagulated with Xarelto. 3. Staph epidermidis bacteremia. Infectious Disease is consulted. 4. Surgery consulted from [facility] for positive blood cultures. Echocardiogram showed no valvular vegetations. 5. Acute compression fracture at T8 evaluated with MRI. Kyphoplasty would be considered when Dr. Garcia becomes available. 6. Severe protein-calorie malnutrition. The patient is working with dietary. DARCIE MULLIGAN MD CM:PNTRANS [phone] DARCIE MULLIGAN MD 03/20/18 1307 interface
--- NOTE | ~2018-03-16 | PR ---
[place], [place] PROGRESS NOTE [id number] UNIT #: [id number] ROOM: [facility]- DOCTOR: COLE GARCIA MD BIRTHDATE: [birth year] DOS: 03/19/2018 SUBJECTIVE: The patient was seen today at her bedside in the Intensive Care Unit on 03/19/2018 for followup of possible endocarditis. She is a 57-year-old woman with severe obstructive lung disease, who is steroid dependent and oxygen dependent. She does have a MediPort in place because of problems with IV access. She came into the hospital on this occasion because of worsening dyspnea. She was found to have leukocytosis, which was felt due to her bronchitis and steroids. Blood cultures were positive both through the port and from peripheral venous sampling and are growing out Staphylococcus epidermidis. She does have hematuria and a markedly elevated sed rate at 70, but does not have any peripheral embolic phenomena. Today, she is breathless and complains of chronic back pain, but no other new symptoms. PHYSICAL EXAMINATION: VITAL SIGNS: Her pulse is 95 and regular, blood pressure is 150/77. She is afebrile. NECK: Supple. She has no jugular distention. Carotids are full. LUNGS: Respirations are labored at rest and she does have bilateral wheezes and expiratory prolongation along with basilar rhonchi. Carotids are full without bruits. HEART: Her heart has a regular rhythm. She has grade 2/6 systolic murmur. I did not hear a diastolic murmur today. She has an S4, but no S3. ABDOMEN: Soft. EXTREMITIES: Showed no edema. She does not have any scleral hemorrhages or subungual hemorrhages and there are no Osler's nodes present. LABORATORY DATA: White count today is down to 9800, hemoglobin is 10.5, platelet count 353,000. Sodium is 140, potassium 3.8, chloride 103, CO2 of 31, BUN 23, creatinine 0.43. IMPRESSION: 1. Bacteremia with Staphylococcus epidermidis. 2. Probable infected MediPort. 3. Cannot rule out endocarditis at this point, although Staphylococcus epidermidis would be an unusual pathogen in a patient who has not had previous valve surgery. 4. History of severe chronic obstructive pulmonary disease. 5. 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 PLAN: I will review her echocardiogram today. Given the risk of anesthesia in this patient if her echocardiogram does not show severe valve abnormalities, it may be hicks to remove her MediPort and treat her empirically with long-term antibiotics rather than look for more documentation with a transesophageal echocardiogram. I will discuss this with Dr. Gibbons, her family practice medical doctor. Certainly, she would not be a candidate for surgical intervention on endocarditis given her poor pulmonary status. [place], [place] PROGRESS NOTE NAME: AZAR REYNOSO Yunier UNIT #: [id number] ROOM: [facility] DOCTOR: COLE GARCIA MD BIRTHDATE: [address] Gibbons and Dr. Park for asking our advice regarding the patient's care. COLE GARCIA MD CM:PNTRANS [phone] COLE GARCIA MD 03/20/18 0648 interface
--- NOTE | ~2018-03-16 | CON ---
[place], [place] REPORT OF CONSULTATION NAME: AZAR REYNOSO UNIT #: [id number] ROOM: [facility] DOCTOR: NUHA ONTIVEROS MD BIRTHDATE: [birth year] DOS: 03/19/2018 REASON FOR CONSULTATION: Staph epidermidis bacteremia. CHIEF COMPLAINT: Shortness of breath. HISTORY OF PRESENT ILLNESS: This is a 57-year-old female with past medical history of COPD, uncontrolled, presenting with shortness of breath for almost a week. According to the patient, it was the worsening of shortness of breath that brought her to the hospital and she denies having any fever, chills, cough, occasional productive on presentation to the hospital. She did not have any high grade fever or chills. Her labs did reveal leukocytosis of 14.4 which is 9.8 today. Her ESR is high at 70. Her blood cultures from admission on 03/16 four bottles 20 minutes apart are growing Staph epidermidis and repeat blood culture on 03/17 four bottles positive for GPC in pairs and clusters and all these 4 sets are from MediPort. The one from is peripheral. Repeat cultures from are in process. Currently, she is getting vancomycin and General Surgery has been consulted for MediPort removal. PAST MEDICAL HISTORY: Significant for: 1. COPD. 2. Emphysema. 3. Osteoporosis. 4. Anxiety disorder. PAST SURGICAL HISTORY: Significant for left chest thoracostomy, VATS procedure 2014, MediPort insertion, vertebroplasty. SOCIAL HISTORY: Former smoker, used to smoke 2 packs of cigarettes per day since she was 20 years old. Nonalcoholic. No illicit drug use. FAMILY HISTORY: Not significant at this time. MEDICATIONS: Reviewed. ALLERGIES: PRIMAXIN, CEFEPIME. PHYSICAL EXAMINATION: GENERAL: The patient is alert, oriented x3, not in acute distress. HEENT: Atraumatic, normocephalic. PERRLA, EOMI. RESPIRATORY: Air entry bilaterally equal. Coarse crackles bilateral lungs. CARDIOVASCULAR: S1, S2 normal. Grade 2/6 systolic murmur, loudest at the apex. CHEST: Left upper chest MediPort in place. No surrounding redness or purulence. ABDOMEN: Soft, nontender, nondistended. Bowel sounds present. SPINE: Lower thoracolumbar spinal, paraspinal tenderness. EXTREMITIES: No pedal edema. LABORATORY DATA AND IMAGING: Reviewed. [place], [place] REPORT OF CONSULTATION NAME: AZAR REYNOSO UNIT #: [id number] ROOM: [facility] DOCTOR: NUHA ONTIVEROS MD BIRTHDATE: [birth year] ASSESSMENT: 1. Catheter-related bloodstream infection, left chest MediPort. 2. High grade Staphylococcus epidermidis bacteremia, 4 out of 4 bottles positive from 03/16, repeat 4 out of 4 bottles positive from 03/17. PLAN: 1. At this time, okay to continue vancomycin for now. Agree with getting the transthoracic echocardiogram and removal of the MediPort, send that catheter tip for cultures. 2. Follow the repeat blood cultures from . 3. MRI of the lumbar spine to look for any diskitis, osteomyelitis. Thank you for your consult. Please call if any questions. Nuha Ontiveros MD CM:CONSTR:REPORT OF CONSULTATION 1 03/20/18 0429 interface
--- NOTE | ~2018-03-16 | PR ---
[place], [place] PROGRESS NOTE NAME: AZAR REYNOSO UNIT #: [id number] ROOM: [facility]- DOCTOR: GENEVA MCKNIGHT MD BIRTHDATE: [birth year] DOS: SUBJECTIVE: The patient states that she feels better, does not have any complaints today. She is on the BiPAP. OBJECTIVE: VITAL SIGNS: Blood pressure is 129/75, pulse of 77, respirations 18, temperature 97.5. LUNGS: Diminished breath sounds. No wheezes heard. HEART: Regular. ABDOMEN: Soft. EXTREMITIES: Without any edema. LABORATORY DATA: White cell count is 10.4, hemoglobin 11.6, hematocrit 39.6. Urine culture shows no bacterial growth. Vancomycin trough is 18.0. ASSESSMENT AND PLAN: 1. Staph epidermidis bacteremia, possibly from MediPort. MediPort was removed. MediPort was not cultured. The patient is going to have a PICC line placed on Friday. Orders have been written. 2. Chronic obstructive pulmonary disease, end-stage, oxygen dependent with chronic respiratory failure, on steroids. 3. Acute compression fracture of T8. Dr. Garcia has been consulted, possibly to have vertebroplasty early next week. 4. Overactive bladder, requested medication, which will be prescribed today. 5. Adult failure to thrive, requiring 4 weeks of antibiotics. Social Service will be consulted for discharge planning. GENEVA MCKNIGHT MD CM:PNTRANS [phone] GENEVA MCKNIGHT MD 03/22/18 0541 interface
--- NOTE | ~2018-03-16 | PR ---
[place], [place] PROGRESS NOTE [id number] UNIT #: [id number] ROOM: 522 DOCTOR: GENEVA MCKNIGHT MD BIRTHDATE: [birth year] DOS: 03/22/2018 SUBJECTIVE: The patient is doing about the same; does not have any new complaints. She still has a productive cough and is sometimes having a hard time bringing it up. She still uses a BiPAP. She is having a lot more back pain. OBJECTIVE: VITAL SIGNS: Blood pressure is 139/77, pulse of 85, respirations 16, temperature 98.0. LUNGS: Diminished breath sounds, scattered wheezes heard. HEART: Regular. ABDOMEN: Soft, scaphoid. EXTREMITIES: Without any edema. ASSESSMENT AND PLAN: 1. Acute exacerbation of chronic obstructive pulmonary disease, on maximal treatment plan. 2. Chronic respiratory failure, on BiPAP. Awaiting bronchoscopy. Discussed with Dr. Gibbons. The patient is having one on Friday. 3. Methicillin-resistant Staphylococcus aureus bacteremia, source was most likely the MediPort, which was removed. A PICC line will be placed tomorrow. 4. Acute compression fracture, for vertebroplasty again tomorrow. We will add Fosamax and calcium supplements. GENEVA MCKNIGHT MD CM:PNTRANS [phone] GENEVA MCKNIGHT MD 03/23/18 0126 interface
--- NOTE | ~2018-03-16 | PR ---
[place], [place] PROGRESS NOTE NAME: AZAR REYNOSO [facility] #: [id number] UNIT #: [id number] ROOM: [facility] DOCTOR: SONI RAZA MD,NINO BIRTHDATE: [birth year] DOS: 03/21/2018 SUBJECTIVE: She has been noted comfortable using the BiPAP, this morning still noted chest congestion and coughing with minimal sputum expectoration. Chest pain has been controlled with pain medication. Denies symptoms of nausea, vomiting or diarrhea. Denies any pain of the lower extremity. Denies symptoms of postnasal drainage, headache or diplopia. Remaining systems were reviewed. They were noted all negative. The patient remained in Intensive Care Unit. OBJECTIVE: VITAL SIGNS: Normal temperature, respiratory rate 18, heart rate 104, blood pressure 138/89 to 119/81. Pulse oxygen saturation on 35% oxygen, BiPAP 97% awake oxygen desaturation noted. The patient was transferred from the bed to a bedside commode. The oxygen saturation of 87%, but with use of the BiPAP application again, oxygen saturation gradually improved to the normal range. HEENT: Examination shows head was atraumatic. Eyes nonicterus. NECK: Supple. CARDIOVASCULAR: S1, S2 audible. LUNGS: Decreased breath sounds with expiratory wheezing bilaterally. ABDOMEN: Flat, soft, nontender. No new changes. MUSCULOSKELETAL: Without acute deformities. CENTRAL NERVOUS SYSTEM: The patient's cranial nerves 2-12 intact. LABORATORY DATA: CMP this morning, BUN normal, creatinine were normal. CO2 of 35. The urine culture, no bacterial growth, final results. CBC of this morning essentially remains normal. IMPRESSION: 1. The patient with ongoing acute on chronic hypercapnic and hypoxic respiratory failure. 2. Acute exacerbation of chronic obstructive pulmonary disease as well as with acute bronchitis. 3. History of compression fracture of the thoracic spine with a referred chest pain. 4. Severe debility. 5. History of deep venous thrombosis, on anticoagulation. 6. Metabolic alkalosis secondary to chronic hypercarbia. PLAN OF TREATMENT: No changes in plan of management at this time. Continue the BiPAP, oxygen and other treatment as in progress. Usual care. Additional treatment changes or recommendation made for the patient based on progression of illness. She was planned for bronchoscopy that would be done on this patient on Friday or Friday. [place], [place] PROGRESS NOTE NAME: AZAR REYNOSO UNIT #: [id number] ROOM: [facility] DOCTOR: NINO CAR MD BIRTHDATE: [birth year] NINO SHAFER MD CM:PNRUBÉN [phone] NINO RAZA MD 03/21/18 1724 interface
--- NOTE | ~2018-03-16 | PR ---
[place], [place] PROGRESS NOTE NAME: [id number] UNIT #: [id number] ROOM: 522 DOCTOR: SONI RAZA MD,NINO BIRTHDATE: [birth year] DOS: 03/25/2018 PULMONARY PROGRESS NOTE SUBJECTIVE: The patient has been still noted with chest congestion with some cough. Denies symptoms of fever or chills. Denies symptoms of hemoptysis. She is continuing to receive vancomycin for Staphylococcus epidermidis bacteremia related to MediPort. The MediPort was already removed. She currently has PICC line in place. General weakness and fatigue were noted. She complains of mild edema in lower extremities. Denies symptoms of nausea, vomiting, diarrhea, or abdominal pain. Remaining systems reviewed, noted all negative. OBJECTIVE: VITAL SIGNS: Normal temperature, respiratory rate 18, heart rate of 96, blood pressure 122/76. Pulse oxygen saturation on 6 L nasal cannula is 99% saturation. HEENT: Head was atraumatic. Eyes nonicterus. CARDIOVASCULAR: S1 and S2 audible. LUNGS: Moderate degree of breath sounds, scattered expiratory wheezing, and crackles. ABDOMEN: Soft, nontender. Bowel sounds present. EXTREMITIES: Mild edema of the ankles. VISIBLE SKIN: No lesions or rashes. MUSCULOSKELETAL: Without any changes at the present time. CENTRAL NERVOUS SYSTEM: General weakness, fatigue, with history of spastic paresis. LABORATORY DATA: Culture of the bronchial washing was identified as heavy growth of Haemophilus influenzae, which noted beta-lactamase positive species. Vancomycin trough level is 26.1. IMPRESSION: 1. The patient has been currently noted with ongoing acute exacerbation of chronic obstructive pulmonary disease, [id number] hypercapnic hypoxic respiratory failure, status post successful vertebroplasty of the T7 vertebral bone with reduction of pain in the chest was noted. 2. Acute severe bronchitis with Haemophilus influenzae infection. 3. Debility. 4. Mild peripheral edema. 5. Mild elevation of vancomycin trough level. PLAN OF TREATMENT: Adjust the vancomycin dose per pharmacy to maintain therapeutic level between 15-20. The patient has been ordered on oral Levaquin 500 mg p.o. daily at the present time. Based on that, if the patient would have poor response to the oral administration, antibiotic could be switched to the intravenous antibiotic. Continuation of the bronchodilator therapy, plan of management. SHE HAS BEEN NOTED WITH ALLERGIES TO CEPHALOSPORINS. So, cephalosporins-related products could not be used. Other therapy, plan of management as previously will be continued. Usual care, plan of treatment. residential facility assessment has been ordered with social group worker [place], [place] PROGRESS NOTE NAME: AZAR REYNOSO UNIT #: [id number] ROOM: 522 DOCTOR: SONI RAZA MD,NINO BIRTHDATE: [birth year] consultation. NINO SHAFER MD CM:PNRUBÉN [phone] NINO RAZA MD 03/25/18 1538 interface
--- NOTE | ~2018-03-16 | PROC NOTE ---
[place], [place] PROCEDURE NOTE NAME: AZAR REYNOSO UNIT #: [id number] ROOM: 522 DOCTOR: SONI RAZA MD,NINO BIRTHDATE: [birth year] DOS: 03/23/2018 BRONCHOSCOPY NOTE POSTOPERATIVE DIAGNOSES: Severe chest congestion and ineffective cough with ongoing acute exacerbation of chronic obstructive pulmonary disease. COMPLICATIONS: None. PROCEDURE DESCRIPTION: Informed consent obtained from the patient. The patient was brought to the OR and placed in supine position. Conscious sedation was administered by the Anesthesia Department. After achieving proper sedation, airway was introduced into the mouth. Bronchoscope was advanced to airway into laryngeal area. Epiglottis and vocal cords were seen. Bronchoscope was advanced to vocal cord and tracheal lumen. Tracheal lumen was identified, purulent secretion noted of copious amount in the tracheal lumen coating the tracheal wall up to the sammy level. Similar secretion was present in bilateral endobronchial tree, copious amount of bilious secretions. All secretions suctioned out clear. The procedure was well tolerated by the patient without any difficulty. Postoperative findings will be discussed with the patient once the patient recovers the effects of acute sedation. Cultures will be monitored. NINO SHAFER MD CM:PROCNOTE:PROCEDURE NOTE [phone] NINO RAZA MD
--- NOTE | ~2018-03-16 | PR ---
[place], [place] PROGRESS NOTE NAME: AZAR REYNOSO [facility] #: [id number] UNIT #: [id number] ROOM: 522 DOCTOR: SONI RAZA MD,NINO BIRTHDATE: [birth year] DOS: 03/20/2018 SUBJECTIVE: The patient has been noted gradual reduction and improvement in respiratory symptoms, had successful removal of MediPort and peripheral line established with the patient. She has been continued on intravenous vancomycin. The patient was isolated one of the blood cultures. The patient was not noted any symptoms of fever or chills. Denied symptoms of hemoptysis. Chest congestion and cough of patient remained. The patient denies any pain of the lower extremity. Denies symptoms of nausea, vomiting, diarrhea or abdominal pain. The appetite was noted fair. The remaining systems were reviewed. They were noted all negative. OBJECTIVE: VITAL SIGNS: The patient's temperature 99.3 degree Fahrenheit, normal temperature, respiratory rate is between 16-24, heart rate of 97-91, blood pressure 137/72 to 133/85. Pulse oxygen saturation of the patient was recorded on 6 liters nasal cannula 100% saturation with BiPAP 35%-98% saturation. HEENT: Examination shows head was atraumatic, eyes nonicterus. NECK: Supple. CARDIOVASCULAR: S1, S2 was audible. LUNGS: The patient was noted as decreased breath sounds bilaterally with expiratory wheezing without any crackles. ABDOMEN: Soft, nontender, bowel sounds present. EXTREMITIES: The patient was noted without any acute edema. MUSCULOSKELETAL: The patient was noted without any acute new deformities. The patient noted with kyphosis of the thoracic spine. LABORATORY DATA: Vancomycin trough level was 18, which was therapeutic range. The blood culture for the patient from the first and admission of the patient, all noticed with Staphylococcus epidermidis. There were no second species isolated as the previous Gram stain was reported as a gram-positive cocci in clusters, other one in pairs. Gram stain were later on made. CBC of the patient this morning, WBC count normal, hemoglobin 10.5, hematocrit 36.1, platelet count for the patient noted 344,000. CMP of the patient this morning, BUN of normal, creatinine was normal. Glucose 145. CO2 of 33. IMPRESSION: 1. The patient's bacteremia related to MediPort, which has been removed yesterday successfully. Surveillance culture of the patient which were done on the showed no bacterial isolation. 2. The patient with ongoing acute exacerbation of chronic obstructive pulmonary disease, acute on chronic hypercapnic and hypoxic respiratory failure. 3. Multilevel compression fracture of the spine was also noted. PLAN AND MANAGEMENT: Continue antibiotic, keep the therapeutic level of the patient's vancomycin. Minimum of 2 weeks of the patient's intravenous antibiotic would be necessary with current positive bacteremia. Bronchodilator will be continued. Bronchoscopy scheduled. The patient bronchoscopy to be done Friday for further assessment of recurrent severe nonproductive cough, which noted ineffective sputum expectoration. Other supportive therapy, plan and [place], [place] PROGRESS NOTE NAME: AZAR REYNOSO UNIT #: [id number] ROOM: 522 DOCTOR: NINO CAR MD BIRTHDATE: [birth year] management, care plan for patient with the plan of changes was made based on progression of illness. NINO SHAFER MD CM:PNTRANS [phone] NINO RAZA MD 10/23/18 0817 interface
--- NOTE | ~2018-03-16 | PR ---
[place], [place] PROGRESS NOTE NAME: AZAR REYNOSO [facility] #: [id number] UNIT #: [id number] ROOM: [facility] DOCTOR: COLE GARCIA MD BIRTHDATE: [birth year] DOS: 03/20/2018 SUBJECTIVE: The patient was seen today 03/20/2018 at her bedside in the intensive care unit. She is a 57-year-old woman with severe lung disease and chronic respiratory failure who presented to the hospital with bacteremia. Blood cultures from her MediPort and from a peripheral vein all grew Staphylococcus epidermidis. She was placed on appropriate antibiotic therapy and blood cultures from March 18 and March 19 are no growth to date. I did do a transthoracic echocardiogram yesterday. It showed normal left ventricular size and function. She has mild aortic sclerosis, but no obvious valvular vegetations and no significant valve malfunctions. As noted previously, I do not believe that she is a candidate for any sort of valve surgery and therefore since a DAVID would not change her management, I would simply continue to treat her with antibiotics as per her Infectious Disease managed services sales consultant's recommendations. The patient does continue to complain of severe back pain, but has no other complaints at this time. PHYSICAL EXAMINATION: VITAL SIGNS: Her pulse is 82 and regular, blood pressure is 133/85. She is afebrile. She weighs 41.4 kg and has a body mass index of 17.8. NECK: Supple. She has no jugular distention. Carotids are full without bruits. LUNGS: Respirations are slightly tachypneic and labored at rest. She has coarse breath sounds with scattered rhonchi in all lung corey along with expiratory prolongation. She has no presacral edema. HEART: Has a regular rhythm with an S4 gallop. I could not hear any S3 or murmurs. ABDOMEN: Soft. EXTREMITIES: Showed no edema. She does not have splinter hemorrhages or Osler's nodes. There is no scleral hemorrhage present. LABORATORY DATA: Hemoglobin today is 10.5 with a white count of 7800. Sodium is 145, potassium 4.0, BUN 22, creatinine 0.43. Sedimentation rate yesterday was 70. IMPRESSION: 1. Bacteremia with Staphylococcus epidermidis. 2. Infected MediPort, removed 03/19/2018. 3. Possible endocarditis, although Staphylococcus epidermidis would be an unusual pathogen in a patient who has not had a previous valve replacement. Thus far, there is no evidence for valve malfunction or obvious vegetations on her echocardiography. 4. History of severe chronic obstructive pulmonary disease with chronic respiratory failure. 5. Immunocompromised host with chronic steroid therapy. 6. Multiple compression fractures with severe back pain. PLAN: At this point, I would treat her with antibiotics as noted above. No [place], [place] PROGRESS NOTE NAME: AZAR REYNOSO UNIT #: [id number] ROOM: [facility] DOCTOR: RADHA STEVENS,COLE BIRTHDATE: [birth year] other cardiac workup is being considered at this time and we will follow her with her other physicians. I thank Dr. Park for asking our advice regarding her care. COLE GARCIA MD CM:PNTRANS [phone] COLE GARCIA MD 03/21/18 0050 interface
--- NOTE | ~2018-03-16 | WRIGHTHP ---
[place], [place] PATIENT HISTORY AND PHYSICAL EXAM NAME: AZAR REYNOSO [facility] #: [id number] UNIT #: [id number] ROOM: 516 DOCTOR: DARCIE MULLIGAN MD BIRTHDATE: [birth year] DOS: 03/16/2018 HISTORY OF PRESENT ILLNESS: 1. The patient is a 57-year-old female with a past medical history of chronic respiratory failure and home oxygen dependence. 2. Adult failure to thrive. 3. Compression fractures, chronic back pain and vertebroplasty. 4. Postmenopausal osteoporosis. 5. Generalized anxiety disorder. 6. Benign essential hypertension. 7. Major depression, recurrent, mild. 8. Gastroesophageal reflux disease and esophagitis. 9. Migraine type headaches. 10. Restless leg syndrome. 11. Generalized anxiety disorder. 12. History of deep venous thrombosis. The patient anticoagulated with Eliquis since 2015. DVT involving the right lower extremity, which is chronic. The patient presented to the Emergency Department after a fall and increased back pains and also increased shortness of breath with wheezing, coughing and shortness of breath and T8 compression fracture. REVIEW OF SYSTEMS: RESPIRATORY: Chronic shortness of breath, which is increased. GASTROINTESTINAL: No nausea, vomiting, diarrhea, constipation. CARDIOVASCULAR: No chest pains or palpitations. FAMILY HISTORY: Noncontributory. SOCIAL HISTORY: History of smoking cigarettes. Denies any alcohol or drug abuse. ALLERGIES: Known allergies to IMIPENEM, CEFEPIME. PHYSICAL EXAMINATION: GENERAL: Alert and oriented x 3, very weak, short of breath. No visible distress. VITAL SIGNS: Blood pressure 122/70, heart rate 90 beats per minute, breathing 18 times per minute, afebrile. GENERAL APPEARANCE: The patient is alert and oriented x 3, in no visible distress. Generalized weakness and muscle wasting. HEENT AND NECK: Extraocular movements are intact. Sclerae are anicteric. Oral mucosa is moist and clean. No obvious facial weakness. Neck is supple without any lymphadenopathy. No thyromegaly. No JVD. No carotid arterial bruits. LUNGS: Decreased breath sounds and significant expiratory wheezing all over. CARDIOVASCULAR SYSTEM: Heart rate is regular in rate and rhythm. S1 and S2 normally audible. No significant murmur or any other abnormal cardiac sounds. ABDOMEN: Soft, nontender. No obvious organomegaly. Bowel sounds are present. No obvious herniation. [place], [place] PATIENT HISTORY AND PHYSICAL EXAM [id number] #: [id number] ROOM: 516 DOCTOR: ISAAK STEVENS,DARCIE Resendez BIRTHDATE: [birth year] EXTREMITIES: Without significant cyanosis or edema. Warm to touch. CENTRAL NERVOUS SYSTEM: Alert and oriented x 3. Cranial nerves II-XII are intact. Speech is normal. The patient is able to move all extremities. Normal muscle strength. Deep tendon reflexes are equal on both sides. Plantars were downgoing. LABORATORY DATA: The patient with T8 compression fracture of the back with significant mid back pains. I will get an MRI of the thoracic spine and consider kyphoplasty. ASSESSMENT: 1. Advanced end-stage chronic obstructive pulmonary disease with acute exacerbation of chronic obstructive pulmonary disease with acute over chronic respiratory failure. The patient was started on DuoNeb, corticosteroids, oxygen and Dr. Gibbons is consulted. 2. Leukocytosis, apparently secondary to acute bronchitis. 3. History of deep venous thrombosis. The patient remains on anticoagulation with Xarelto. 4. Benign essential hypertension, treated and controlled. The patient is on diltiazem. DARCIE MULLIGAN MD CM:HISPHYS:PATIENT HISTORY AND PHYSICAL EXAMINATION [phone] DARCIE MULLIGAN MD 03/16/18 1733 interface
--- NOTE | ~2018-03-16 | PROC NOTE ---
[place], [place] PROCEDURE NOTE NAME[id number] UNIT #: [id number] ROOM: [facility] DOCTOR: EDGAR JONES MD BIRTHDATE: [birth year] DOS: 03/19/2018 PREOPERATIVE DIAGNOSIS: Positive blood cultures. POSTOPERATIVE DIAGNOSIS: Positive blood cultures. PROCEDURE: Removal of left anterior chest wall MediPort. SURGEON: Edgar Jones M.D. ENDOSCOPY SUPPORT SPECIALIST: DARÍO. ANESTHESIA: MAC with local (1% plain lidocaine, 7 mL). INDICATIONS: This is a 57-year-old lady admitted with positive blood cultures, who has a MediPort which is going to be removed today for the positive blood cultures. The procedure and its complications were explained to the patient in detail. Complications that were discussed included but were not limited to bleeding, infection, hematoma/seroma/abscess formation, and prolonged pain, she agreed to proceed. DESCRIPTION OF PROCEDURE: After identifying the patient, the patient was brought to the operating suite and laid in the supine position. After time-out, procedure was called, IV sedation was administered by the anesthesia team and the parts were then painted and draped in the usual sterile fashion. The incision was marked and approximately 7 mL of 1% plain lidocaine was injected for local anesthesia. Incision was made and deepened in layers. The port was dissected all around and removed and sent for histopathological diagnosis. Thereafter, hemostasis was confirmed with the help of electrocautery, and the subcutaneous tissue was irrigated and approximated with the help of 3-0 Vicryl in a running fashion, and the skin edges were approximated with the help of 4-0 Vicryl in a subcuticular running fashion. Dressings were placed. The patient tolerated the procedure well. There were no complications. Dr. Edgar Jones, the attending surgeon, was present throughout the operating case. Edgar Jones MD CM:PROCNOTE:PROCEDURE NOTE [id number] EDGAR JONES MD
--- NOTE | ~2018-03-16 | EKG ---
[place], [place] ELECTROCARDIOGRAM REPORT NAME: AZAR REYNOSO UNIT #: [id number] ROOM: [facility] DOCTOR: CONNER DRAFT REPORT BIRTHDATE: [birth year] [facility] Test Date: 2018-03-16 Test Time: 11:14:39 Pat Name: AZAR REYNOSO Department: Room: [facility] Gender: F [employer] Administrator: TINO : 1960 Requested By: BRITNI MARX Order Number: [id number] Reading MD: Vaughn Gibbons MD Measurements Intervals [place] Rate: 104 P: 74 LA: 134 QRS: 93 QRSD: 82 T: 10 QT: 350 QTc: 461 Interpretive Statements Sinus tachycardia Anterior infarct, old Electronically Signed On 03-21-2018 12:37:32 PST by Vaughn Gibbons MD CM:EKGRPT:ELECTROCARDIOGRAM REPORT [id number] BRITNI MARX EPIPHANY DRAFT REPORT BRITNI MARX
--- NOTE | ~2018-03-16 | PR ---
[place], [place] PROGRESS NOTE [id number] UNIT #: [id number] ROOM: [facility] DOCTOR: SONI RAZA MD,NINO BIRTHDATE: [birth year] DOS: 03/19/2018 SUBJECTIVE: The patient has been noted comfortable at this time. Plan for removal of the Mediport this morning. The blood culture has been noted with evidence of Staphylococcus epidermidis in 1 of the organism, preliminary isolated from the blood cultures. The final report, all the culture still remains pending. She has MRI of the chest completed yesterday as well. The patient denies symptoms of fever or chills. Shortness of breath was noted with exertion. The chest congestion and cough has been noted partially decreased. She was noted more awake and alert and some improvement in overall physical strength. Denies symptoms of pain or edema of the lower extremities. Remaining systems were reviewed. They were noted all negative. PHYSICAL EXAMINATION: VITAL SIGNS: For the patient which were recorded this morning as a normal temperature, respiratory rate 20, heart rate 95, respiratory rate 21, blood pressure 150/77-133/61. The pulse oxygen saturation was noted on the nasal cannula and the BiPAP has a pulse oxygen saturation of 96% saturation on 6 liter nasal cannula. HEENT: Examination shows head was atraumatic. Eyes, nonicterus. NECK: Supple. CARDIOVASCULAR: S1, S2 audible. LUNGS: Moderate reduction in the breath sounds with expiratory wheezing, which has been noted partially decreased from previous examination. ABDOMEN: Soft, nontender, bowel sounds present. EXTREMITIES: Without any acute edema. VISIBLE SKIN: No lesions or rashes. MUSCULOSKELETAL: No acute deformities. CENTRAL NERVOUS SYSTEM: General weakness and fatigue. LABORATORY DATA: CBC this morning, WBC count 9.8, hemoglobin 10.5, platelet count normal. CMP for the patient that was done on 03/19/2018, glucose 129, BUN 23, creatinine was normal. Remaining electrolytes are normal. Albumin of 2.6. ESR yesterday was noted as 78. MRI of the thoracic spine was completed yesterday is also for review shows [id number] severe chronic compression deformity of the thoracic spine, most severe involving the T8. Acute compression fracture noted in the superior endplate of T7. Some paraspinal edema, T6-T7 was also reported. IMPRESSION: 1. Several-level multicompression fracture with ongoing acute exacerbation of chronic obstructive pulmonary disease. 2. [id number] hypercapnic and hypoxic respiratory failure. 3. Acute tracheobronchitis. 4. Acute exacerbation of chronic obstructive pulmonary disease. 5. Bacteremia, Staphylococcus epidermidis as well. The transthoracic echocardiogram, which was obtained with pending results. MediPort related bacteremia would be considered. Final culture results of blood were pending. PLAN OF MANAGEMENT: Continue steroids, bronchodilators, oxygen supplementation [place], [place] PROGRESS NOTE [id number] UNIT #: [id number] ROOM: [facility] DOCTOR: SONI RAZA MD,NINO BIRTHDATE: [birth year] with MediPort, and insertion of the PICC line for IV access. Continue steroids and other therapy, plan of management. Await for the transthoracic echocardiogram results. Assessment of the patient from the cardiac standpoint, has been discussed with Dr. Luna. The echocardiogram transthoracic was performed at this time with pending results. Results will be monitored. For the T7 compression fracture, possible intervention with vertebroplasty should be considered for the medical management of the current chest pain. NINO SHAFER MD CM:PNTRANS [phone] NINO RAZA MD 03/19/18 2139 interface
--- NOTE | ~2018-03-16 | PR ---
[place], [place] PROGRESS NOTE NAME[id number] UNIT #: [id number] ROOM: 522 DOCTOR: ANGELES ROWEJUNE BIRTHDATE: [birth year] DOS: 03/23/2018 SUBJECTIVE: The patient is a 57-year-old female being followed for a high-grade Staphylococcus epidermidis bacteremia with an infected MediPort. She is status post MediPort removal. Repeat blood cultures from 03/19/2018 remained sterile. She had positive blood cultures on 03/16/2018, 03/17/2018 and 03/18/2018. She underwent a bronchoscopy this morning, results of that are pending. She also just had a PICC line placed in Interventional Radiology and tomorrow, she is to go for kyphoplasty. She is alert and oriented, having some shortness of breath, currently with loose cough, no fevers, no nausea or vomiting, no diarrhea. No rash or itch. LABORATORY DATA: Cultures as reviewed above. Her respiratory viral panel was back and is negative. PHYSICAL EXAMINATION: VITAL SIGNS: Temperature 97.0, pulse 97, respirations 16, BP 145/80. GENERAL: A 57-year-old female in moderate respiratory distress. HEENT: Normocephalic, no thrush. NECK: Supple. LUNGS: Very diminished bilaterally. Respirations slightly labored. HEART: Regular rhythm. No murmur appreciated. ABDOMEN: Soft, nondistended. EXTREMITIES: No edema or deformity. Left chest site where MediPort was removed, well approximated. No discharge or erythema. Left upper extremity PICC in place. Dressing dry and intact. SKIN: Warm, dry, free of rashes. ASSESSMENT: High-grade Staphylococcus epidermidis bacteremia, status post infected MediPort removal. Repeat blood cultures from 03/19/2018 remained sterile. There is concern for endocarditis. Her 2D echocardiogram did not show any vegetations; however, DAVID is deferred due to her respiratory status. PLAN: Continue the IV vancomycin. Plan is for 4 weeks of IV vancomycin to be followed by repeat blood cultures, off of antibiotics. ADDENDUM I agree with the assessment and plan made by the nurse practitioner, Nina Potter. I reviewed the labs and imaging and made the necessary changes in the note. JUNE JAE POTTER [place], [place] PROGRESS NOTE NAME: AZAR POTTER UNIT #: [id number] ROOM: 522 DOCTOR: ANGELES ROWE BIRTHDATE: [birth year] Nika Abdi MD CM:MARIEL [id number] JUNE ANGELES ROWE 04/23/18 1131 interface
--- NOTE | ~2018-03-16 | PR ---
[place], [place] PROGRESS NOTE NAME: AZAR REYNOSO UNIT #: [id number] ROOM: [facility] DOCTOR: SONI RAZA MD,NINO BIRTHDATE: [birth year] DOS: 03/22/2018 PULMONARY PROGRESS NOTE SUBJECTIVE: The patient is noted comfortable at the present time. She is still noted with excessive chest congestion and coughing. Denies any acute new respiratory complaints at this time of the assessment. Denies symptoms of fever or chills. Denies symptoms of hemoptysis. OBJECTIVE: VITAL SIGNS: Which were recorded showed the temperature noted as normal, respiratory rate recorded as 16, heart rate 85, blood pressure 139/77. Pulse ox saturation on 6 liters canula was 99% saturation. HEENT: No acute change. NECK: Supple. CARDIOVASCULAR: S1 and S2 audible. LUNGS: The patient was noted without any wheeze or crackles. ABDOMEN: Soft, nontender. IMPRESSION: 1. The patient with resolution of bacteremia with Staphylococcus epidermidis, catheter related. MediPort is already removed. 2. Acute exacerbation of chronic obstructive pulmonary disease, acute on chronic hypercapnic hypoxic respiratory failure with thoracic compression fracture. PLAN OF MANAGEMENT: No changes in the plan of care at this time will be needed. Continue bronchodilators and oxygen supplementation. Bronchoscopy for this week is planned to be done because of persistent cough. Other supportive therapy, plan of management, care plan, and treatment. NINO SHAFER MD CM:PNTRANS [id number] NINO RAZA MD 03/23/18 0009 interface
--- NOTE | ~2018-03-16 | PR ---
[place], [place] PROGRESS NOTE [id number] UNIT #: [id number] ROOM: [place] [address] DOCTOR: SONI RAZA MD,NINO BIRTHDATE: [birth year] DOS: 03/18/2018 SUBJECTIVE: The patient transferred to Intensive Care Unit upon recommendation because of respiratory distress, continue intravenous antibiotic. Vancomycin started yesterday. Culture taken briefly and the MediPort as well. Both were noted positive. Gram-positive cocci in cluster, suggestive strongly the possibility of acute active infection related to the MediPort. She has not been noted symptoms of fever or chills. Denies symptoms of hemoptysis. SUBJECTIVE: The coughing has been noted chest congestion, inability to expectorate sputum. Chest pain was noted severe at the present time as well. Denies symptoms of nausea, vomiting, diarrhea. General weakness and fatigue were reported. The patient used the BiPAP as well intermittently from yesterday as well. She has not been noted any evidence of hypertension requiring any vasopressor therapy. She has not reported any symptoms of chills or fever. Denies symptoms of nausea, vomiting, headache, or diplopia. Denies any pain of the lower extremities. Remaining systems were reviewed. They were noted negative. Past family, social, surgical history reviewed and unchanged as the history was completed yesterday in my consultation. OBJECTIVE: VITAL SIGNS: Temperature noted low grade 99.4 degree Fahrenheit, respiratory rate of 18-20, heart rate 103-82, blood pressure 142/69, 112/68. The pulse oxygen saturation 6 liters nasal canula 92% saturation on the BiPAP 35 96% saturation. HEAD, EYES, EARS, NOSE, AND THROAT: Head was atraumatic. Eyes nonicterus. NECK: Supple. CARDIOVASCULAR SYSTEM: S1, S2 audible. LUNGS: Noted with decreased breath sounds in the lungs bilaterally with expiratory wheezing without any crackles. ABDOMEN: Soft, nontender. EXTREMITIES: Loss of muscle mass. VISIBLE SKIN: No lesions or rashes. MUSCULOSKELETAL: No acute abnormalities. CENTRAL NERVOUS SYSTEM: General weakness and fatigue. LABORATORY DATA: Blood culture from the MediPort was also noted abnormal and positive with Gram-positive cocci in clusters and pairs in one set and the other was noted with clusters. Arterial blood gas 6 liters yesterday pH of 7.35, pCO2 of 47, pO2 of 94.9. IMPRESSION: 1. The patient with an acute on chronic hypercapnic hypoxic respiratory failure. 2. Bacteremia. The patient, gram-positive cocci in cluster MediPort related infection with 2 different organisms was suspected, currently treated with vancomycin. 3. Acute exacerbation of chronic obstructive pulmonary disease and acute [place], [place] PROGRESS NOTE NAME: AZAR REYNOSO UNIT #: [id number] ROOM: [place] [address] DOCTOR: SONI RAZA MD,NINO BIRTHDATE: [birth year] compression fracture of the thoracic spine with osteoporosis. 4. Chronic steroid dependency. 5. 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 PLAN OF MANAGEMENT: Continue the BiPAP intermittent during the day, continue at nighttime, continue antibiotics. The MediPort removal will be ordered for this patient as well. Bronchodilators to be continued. Continue current dose of corticosteroids. MRI of the spine upon stability will be done. Other supportive therapy, plan of management, care plan and other milieu therapy will be ordered according to the needs. Supportive care, other treatment, plan and management and care plan. Overall prognosis remains guarded. NINO SHAFER MD CM:PNTRANS [id number] NINO RAZA MD 03/18/18 1603 interface
--- NOTE | ~2018-03-16 | PR ---
[place], [place] PROGRESS NOTE NAME: AZAR REYNOSO UNIT #: [id number] ROOM: [place] [address] DOCTOR: DARCIE MULLIGAN MD BIRTHDATE: [birth year] DOS: 03/17/2018 SUBJECTIVE: The patient with increasing shortness of breath, tiredness, fatigue, moved over to the ICU for close monitoring. PHYSICAL EXAMINATION: GENERAL APPEARANCE: The patient is alert and oriented x 3, in no visible distress. Generalized weakness, asthenia VITAL SIGNS: Blood pressure 134/54, breathing 22 times per minute, heart rate of 101 beats per minute, 98.7 degrees Fahrenheit is the temperature. HEENT AND NECK: Exam within normal limits. CARDIOVASCULAR SYSTEM: Heart rate is regular in rate and rhythm. S1 and S2 normally audible. LUNGS: Decreased breath sounds on lung auscultation with expiratory wheezing all over. ABDOMEN: Soft, nontender. No obvious organomegaly. Bowel sounds are present. EXTREMITIES: Without significant cyanosis or edema. IMPRESSION: 1. Acute over chronic respiratory failure with unstaged underlying chronic obstructive pulmonary disease and oxygen dependence. The patient is being treated with oxygen, DuoNebs, corticosteroids, antibiotics and now Dr. Gibbons has transferred her to ICU very appropriately for impending respiratory failure and she is being monitored closely. 2. Leukocytosis from acute bronchitis. 3. Benign essential hypertension. Blood pressures are being monitored, treated and controlled. 4. History of deep venous thrombosis. The patient anticoagulated with Xarelto. 5. Blood cultures turning out to be positive for gram-positive cocci in clusters. Blood gases showed a pH of 7.35 with pCO2 of 47. DARCIE MULLIGAN MD CM:PNTRANS [phone] DARCIE MULLIGAN MD 03/17/18 183 interface
--- NOTE | ~2018-03-16 | PR ---
[place], [place] PROGRESS NOTE NAME: AZAR REYNOSO [facility] #: [id number] UNIT #: [id number] ROOM: 522 DOCTOR: LIZA FLETCHER DO BIRTHDATE: [birth year] DOS: 03/20/2018 SUBJECTIVE: The patient has been noted gradual reduction and improvement in respiratory symptoms, had successful removal of MediPort and peripheral line established with the patient. She has been continued on intravenous vancomycin. The patient was isolated one of the blood cultures. The patient was not noted any symptoms of fever or chills. Denied symptoms of hemoptysis. Chest congestion and cough of patient remained. The patient denies any pain of the lower extremity. Denies symptoms of nausea, vomiting, diarrhea or abdominal pain. The appetite was noted fair. The remaining systems were reviewed. They were noted all negative. OBJECTIVE: VITAL SIGNS: The patient's temperature 99.3 degree Fahrenheit, normal temperature, respiratory rate is between 16-24, heart rate of 97-91, blood pressure 137/72 to 133/85. Pulse oxygen saturation of the patient was recorded on 6 liters nasal cannula 100% saturation with BiPAP 35%-98% saturation. HEENT: Examination shows head was atraumatic, eyes nonicterus. NECK: Supple. CARDIOVASCULAR: S1, S2 was audible. LUNGS: The patient was noted as decreased breath sounds bilaterally with expiratory wheezing without any crackles. ABDOMEN: Soft, nontender, bowel sounds present. EXTREMITIES: The patient was noted without any acute edema. MUSCULOSKELETAL: The patient was noted without any acute new deformities. The patient noted with kyphosis of the thoracic spine. LABORATORY DATA: Vancomycin trough level was 18, which was therapeutic range. The blood culture for the patient from the first and admission of the patient, all noticed with Staphylococcus epidermidis. There were no second species isolated as the previous Gram stain was reported as a gram-positive cocci in clusters, other one in pairs. ____ Gram stain were later on made. CBC of the patient this morning, WBC count normal, hemoglobin 10.5, hematocrit 36.1, platelet count for the patient noted 344,000. CMP of the patient this morning, BUN of normal, creatinine was normal. Glucose 145. CO2 of 33. IMPRESSION: 1. The patient's bacteremia related to MediPort, which has been removed yesterday successfully. Surveillance culture of the patient which were done on the showed no bacterial isolation. 2. The patient with ongoing acute exacerbation of chronic obstructive pulmonary disease, acute on chronic hypercapnic and hypoxic respiratory failure. 3. Multilevel compression fracture of the spine was also noted. PLAN AND MANAGEMENT: Continue antibiotic, keep the therapeutic level of the patient's vancomycin. Minimum of 2 weeks of the patient's intravenous antibiotic would be necessary with current positive bacteremia. Bronchodilator will be continued. Bronchoscopy scheduled. The patient ____ to be done Friday for further assessment of recurrent severe nonproductive cough, which noted ineffective sputum expectoration. Other supportive therapy, plan and [place], [place] PROGRESS NOTE NAME: ANGELESAZAR A UNIT #: [id number] ROOM: 522 DOCTOR: LIZA FLETCHER DO BIRTHDATE: [birth year] management, care plan for patient with the plan of changes was made based on progression of illness. LIZA FLETCHER DO CM:PNRUBÉN [id number] LIZA FLETCHER DO 03/26/18 1029 MELITON [email or web address]
--- NOTE | ~2018-03-16 | PR ---
[place], [place] PROGRESS NOTE [id number] UNIT #: [id number] ROOM: 522 DOCTOR: COLE GARCIA MD BIRTHDATE: [birth year] DOS: 03/21/2018 CARDIOLOGY PROGRESS NOTE SUBJECTIVE: The patient was seen at her bedside in the intensive care unit today. She was lying almost flat in bed and breathing easily. She did have an episode of hypoxemia and dyspnea earlier today, but this resolved when she was put back in bed. PHYSICAL EXAMINATION: VITAL SIGNS: On exam today, her pulse is 100 and regular, blood pressure 138/89. She is afebrile. NECK: Supple. She has no jugular distention. LUNGS: Respirations are unlabored. She has markedly decreased breath sounds with coarse breath sounds and scattered rhonchi in all lung corey. She had no presacral edema. HEART: Had a regular rhythm with an S4 gallop, but No S3 or significant murmur. ABDOMEN: Soft and normally active. EXTREMITIES: Showed no edema. Blood cultures have been sterile since 03/18/2018. IMPRESSION: 1. Bacteremia with Staphylococcus epidermidis. 2. Infected MediPort, removed 03/19/2018. 3. Possible endocarditis. 4. Staphylococcus epidermidis would be an unusual pathogen in a patient who has not had previous valve replacement and thus far there is no evidence from valve malfunction, obvious vegetations on her echocardiogram, or peripheral embolic phenomena. 5. History of severe chronic obstructive pulmonary disease with chronic respiratory failure. 6. 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 7. Multiple compression fractures. There was severe back pain. PLAN: We will continue to follow her intermittently with her other physicians, but no other cardiac workup is being considered at this time. She will require long-term antibiotic therapy. I thank Dr. Park for asking our advice regarding her care. [place], [place] PROGRESS NOTE NAME: AZAR REYNOSO UNIT #: [id number] ROOM: 522 DOCTOR: COLE GARCIA MD BIRTHDATE: [birth year] COLE GARCIA MD CM:PNTRANS [phone] COLE GARCIA MD 03/23/18 1327 interface
--- NOTE | ~2018-03-16 | PR ---
[place], [place] PROGRESS NOTE [id number] UNIT #: [id number] ROOM: 522 DOCTOR: COLE GARCIA MD BIRTHDATE: [birth year] DOS: 03/22/2018 CARDIOLOGY PROGRESS NOTE SUBJECTIVE: The patient was seen today at her bedside in the Intensive Care Unit on 03/22/2018 for followup of Staphylococcus epidermidis bacteremia. Her biggest complaint remains her back pain which radiates under her ribs. This is due to an acute compression fracture. She denies fevers or chills. She denies any change in her chronic dyspnea and says that as long as she is lying still she is breathing easily. She does still have coarse breath sounds and a frequent cough. PHYSICAL EXAMINATION: VITAL SIGNS: Today, her pulse is 85 and regular, blood pressure is 139/77. She is afebrile. She weighs 41.4 kilograms. NECK: Supple. She has no jugular distention. Carotids are full. There are no scleral hemorrhages. LUNGS: Her respirations show coarse breath sounds bilaterally. She has no presacral edema. HEART: Has a regular rhythm. She has a fourth heart sound, but no third heart sound and I cannot hear a murmur today. The PMI is not displaced. There is no precordial heave, lift or thrill. ABDOMEN: Soft and normally active. EXTREMITIES: Showed no edema in the legs. She has no subungual hemorrhages and no Martínez spots. There were no Osler's nodes. LABORATORY DATA: No laboratory studies were drawn today. She did have blood cultures, last done on 03/19/2018 and these are sterile. Blood cultures done on 03/18/2018 showed late growth in the aerobic culture of a gram-positive cocci in clusters, which probably will be the Staph epidermidis that she has grown before. Please note these cultures were drawn before the removal of the MediPort. IMPRESSIONS: 1. Bacteremia with Staphylococcus epidermidis. 2. Infected MediPort, which was removed 03/19/2018. 3. Possible endocarditis. Staphylococcus epidermidis is an unusual pathogen in a patient who has not had previous valve replacement and thus far we see no evidence for valve malfunction or obvious vegetations on her echocardiogram. 4. History of severe chronic obstructive pulmonary disease with chronic respiratory failure. 5. Immunocompromised host with chronic steroid therapy. 6. Multiple compression fractures with severe back pain. PLAN: We will continue to follow the patient intermittently. There is no plan at this time to do further cardiac testing; however, I think that she will require prolonged antibiotic therapy for her bacteremia. I thank Dr. Park for asking our advice regarding her care. [place], [place] PROGRESS NOTE NAME: AZAR REYNOSO UNIT #: [id number] ROOM: 522 DOCTOR: COLE GARCIA MD BIRTHDATE: [birth year] COLE GARCIA MD CM:PNTRANS [id number] COLE GARCIA MD 03/23/18 0726 interface
--- NOTE | ~2018-03-16 | DS ---
[place], [place] DISCHARGE SUMMARY NAME: AZAR REYNOSO [facility] #: [id number] UNIT #: [id number] ROOM: 522 DOCTOR: DARCIE MULLIGAN MD BIRTHDATE: [birth year] DOS: 03/25/2018 DISCHARGE DIAGNOSES: 1. Staph epidermidis bacteremia and MediPort infection with suspected endocarditis. The patient is to get IV vancomycin for 1 month. 2. Severe purulent tracheobronchitis, status post bronchoscopy by Dr. Gibbons. 3. Acute exacerbation of severe chronic obstructive pulmonary disease with acute over chronic respiratory failure. 4. T8 compression fracture, status post kyphoplasty by Dr. Garcia. 5. Advanced adult failure to thrive. 6. History of deep venous thrombosis and anticoagulation with Xarelto. 7. Postmenopausal osteoporosis. 8. Generalized anxiety disorder. 9. Benign essential hypertension. 10. Major depression, recurrent, mild. 11. Gastroesophageal reflux disease and esophagitis. 12. Migraine type headaches. 13. Restless leg syndrome. HOSPITAL COURSE: The patient presented to the Emergency Department at [facility] with increased shortness of breath, wheezing, and acute over chronic respiratory failure with acute mid back pains. The patient was found to have T8 compression fracture, which was acute and acute exacerbation of chronic obstructive pulmonary disease with severe tracheobronchitis, which was treated with antibiotics and the patient was taken for a bronchoscopy by Dr. Gibbons, the phosphorus processing supervisor. The patient has end-stage lung disease, advanced chronic obstructive pulmonary disease and acute over chronic respiratory failure. Long-term prognosis is guarded. The patient achieved maximal benefit from this admission and being discharged to [facility]. The patient was found to have blood cultures positive for Staphylococcus epidermidis and she was suspected to have endocarditis, although 2D echocardiogram did not show any valve lesions. The patient was seen by Infectious Disease specialist, Dr. Abdi and started on IV vancomycin, which she is supposed to complete 4 weeks of treatment. The suspected infected MediPort was removed by surgery. Chronic deep venous thrombosis. Benign essential hypertension. Blood pressures monitored and treated. Advanced adult failure to thrive. The patient worked with physical therapy. She has advanced disability. We took bedsore and fall precautions. LABORATORY DATA: The patient is status post bronchoscopy as mentioned above. Thick mucopurulent secretions were aspirated. T8 vertebroplasty on x-ray was successful. DISCHARGE MANAGEMENT: Tylenol 1000 mg every 8 hours as needed for pain, Fosamax 70 mg weekly, Citracal t.i.d., oxybutynin 2.5 mg b.i.d., Xarelto 15 mg daily, [place], [place] DISCHARGE SUMMARY NAME: AZAR REYNOSO UNIT #: [id number] ROOM: 522 DOCTOR: DARCIE MULLIGAN MD BIRTHDATE: [birth year] guaifenesin 1200 mg b.i.d. as needed, DuoNeb every 4 hours, oxygen titrate to keep pulse ox 90-96%, prednisone 20 mg a day, Lexapro 20 mg a day, Bumex 1.5 mg daily, omeprazole 20 mg a day, ropinirole 0.25 mg at bedtime, Topamax 50 mg at bedtime, potassium chloride 20 mEq daily, diltiazem 60 mg b.i.d., cyclobenzaprine 10 mg b.i.d., MiraLax 17 grams daily, IV vancomycin 500 mg b.i.d. for one month. Check peak and trough levels after 5 days. Let pharmacy to adjust the dosing of vancomycin. DARCIE MULLIGAN MD CM:HENRY [id number] DARCIE MULLIGAN MD 03/25/18 1311 interface
--- NOTE | ~2018-03-16 | PR ---
[place], [place] PROGRESS NOTE NAME: AZAR REYNOSO UNIT #: [id number] ROOM: 522 DOCTOR: NINO CAR MD BIRTHDATE: [birth year] DOS: 03/24/2018 PULMONARY PROGRESS NOTE SUBJECTIVE: Bronchoscopy completed yesterday with the reduction of symptoms of coughing, shortness of breath, and wheezing. However, she was still noted with some chest congestion, uley-za-btkddxvr cough. There were no symptoms of fever or chills. Cultures of the purulent secretion, which were removed from the endobronchial tree in copious amount was sent to the laboratory. She denies symptoms of nausea, vomiting, or diarrhea. OBJECTIVE: VITAL SIGNS: The vital signs of the patient showed normal temperature, respiratory rate of 18, heart rate of 77, and blood pressure of 132/81. Pulse oxygen saturation recorded as 98% on 6 liters nasal cannula. HEENT: On examination, no new change. NECK: Supple. CARDIOVASCULAR SYSTEM: S1, S2 is audible. LUNGS: Noted with albb-xb-yougakui expiratory wheezing. No crackles. ABDOMEN: Soft, nontender: EXTREMITIES: No acute edema. LABORATORY DATA: The Gram stain of the bronchial washing yesterday, many white blood cells, few gram-positive cocci in pairs, moderate gram-negative diplococci and gram-negative bacilli with pending culture results. Respiratory virus panel, which was sent on 03/17/2018 was noted all negative. IMPRESSION: 1. The patient has been noted with severe purulent tracheobronchitis with acute exacerbation of chronic obstructive pulmonary disease, acute and chronic hypercapnic respiratory failure, and multiple other illnesses known. 2. T8 compression fracture of thoracic spine. She will be undergoing vertebroplasty today by Dr. Garcia. PLAN OF MANAGEMENT: Continuation of current plan of treatment. Monitor culture results. Changing antibiotics based on the culture results. Other supportive therapy, plan of management, care plan, and treatment. Usual care. [place], [place] PROGRESS NOTE NAME: AZAR REYNOSO UNIT #: [id number] ROOM: 522 DOCTOR: NINO CAR MD BIRTHDATE: [birth year] NINO SHAFER MD CM:PNRUBÉN [id number] NINO RAZA MD 03/24/18 2338 interface
[~2018-03-16 11:01] MED LIST changes: +REQUIP0.25 M1 PO; -ROPINIROLE HYDRO1 MG PO; -TOPAMAX25 M3 PO; +TOPAMAX50 MG PO
[2018-03-16 11:03] VITALS: BP 133/87
[2018-03-16 11:40] LABS: HEMATOCRIT 40.2 % (37.0-47.0); HEMOGLOBIN 12.4 g/dl (12.0-16.0); MEAN CELL VOLUME 90.5 fl (81.0-99.0); MEAN CORPUSCULAR HGB 27.9 pg (27.0-31.0); MEAN CORPUSCULAR HGB CONC 30.8 g/dl (33.0-37.0); MEAN PLATELET VOLUME 10.1 fl (9.6-12.3); PLATELET COUNT AUTOMATED 281 10*3/uL (130-400); RED BLOOD COUNT 4.44 10*6/uL (4.10-5.10); RED CELL DISTRI WIDTH 15.9 % (0-14.5); WHITE BLOOD COUNT 14.4 10*3/uL (4.8-10.8)
[2018-03-16 11:51] LABS: ACT PARTIAL THROMBO TIME 28.3 SECONDS (20.8-31.5)
[2018-03-16 11:57] LABS: ALBUMIN 3.3 gm/dl (3.1-4.5); ALKALINE PHOSPHATASE 90 U/L (45-117); BUN 18 mg/dl (7-24); CHLORIDE 110 mmol/L (98-107); CREATININE 0.47 mg/dL (0.55-1.02); POTASSIUM 3.8 mmol/L (3.5-5.1); SGOT/AST 16 IU/L (3-35); SGPT/ALT 13 U/L (12-78); SODIUM 144 mmol/L (136-145); TROPONIN I < 0.015 ng/ml (<0.045)
[2018-03-16 11:59] VITALS: BP 127/77
[2018-03-16 12:03] LABS: PLATELET SUFFICIENCY NORMAL (NORMAL); TOTAL CELLS COUNTED 100 #CELLS
[2018-03-16 13:36] VITALS: BP 116/68
[2018-03-16 14:15] VITALS: BP 122/70
[2018-03-16] MEDS ORDERED: PREDNISONE20 M1 PO (15:27)
[2018-03-16] MEDS ORDERED: VITAMIN D22000 UNIT PO (15:30)
[2018-03-16 16:00] VITALS: BP 140/78
[2018-03-16 20:00] VITALS: BP 135/51
[2018-03-17] VITALS: BP 137/69
[2018-03-17 08:00] VITALS: BP 136/68
[2018-03-17 12:00] VITALS: BP 131/54
[2018-03-17 13:44] LABS: ABG BASE EXCESS 0.4 mmol/L (-2.0-2.0); ABG HCO3 25.8 mmol/l (22-26); ABG O2 SATURATION 98.2 % (95-97); ARTERIAL BLOOD GAS PCO2 47.8 mmHg (35-45); ARTERIAL BLOOD GAS PH 7.352 (7.35-7.45); ARTERIAL BLOOD GAS PO2 94.9 mmHg (80-90)
[2018-03-17 16:00] VITALS: BP 134/71
[2018-03-17 20:00] VITALS: BP 112/68
[2018-03-18] VITALS: BP 122/77
[2018-03-18 04:00] VITALS: BP 118/55
[2018-03-18 08:00] VITALS: BP 130/70
[2018-03-18 12:00] VITALS: BP 143/69
[2018-03-18 16:00] VITALS: BP 128/65
[2018-03-18 16:38] LABS: HEMOGLOBIN 11.2 g/dl (12.0-16.0); MEAN CELL VOLUME 91.4 fl (81.0-99.0); MEAN CORPUSCULAR HGB 27.7 pg (27.0-31.0); MEAN CORPUSCULAR HGB CONC 30.3 g/dl (33.0-37.0); MEAN PLATELET VOLUME 10.5 fl (9.6-12.3); PLATELET COUNT AUTOMATED 373 10*3/uL (130-400); RED BLOOD COUNT 4.05 10*6/uL (4.10-5.10); RED CELL DISTRI WIDTH 16.2 % (0-14.5); WHITE BLOOD COUNT 15.5 10*3/uL (4.8-10.8)
[2018-03-18 17:03] LABS: ALBUMIN 2.9 gm/dl (3.1-4.5); ALKALINE PHOSPHATASE 78 U/L (45-117); BUN 22 mg/dl (7-24); CHLORIDE 103 mmol/L (98-107); CREATININE 0.59 mg/dL (0.55-1.02); POTASSIUM 3.4 mmol/L (3.5-5.1); SGOT/AST 28 IU/L (3-35); SGPT/ALT 15 U/L (12-78); SODIUM 140 mmol/L (136-145); TOTAL PROTEIN 7.1 gm/dL (6.4-8.2)
[2018-03-18 17:15] LABS: PLATELET SUFFICIENCY NORMAL (NORMAL); TOTAL CELLS COUNTED 100 #CELLS
[2018-03-18 18:47] LABS: BILIRUBIN NEGATIVE (NEGATIVE); BLOOD 3+ (NEGATIVE); CLARITY CLEAR (CLEAR); COLOR YELLOW (YELLOW); GLUCOSE NEGATIVE (NEGATIVE); KETONE NEGATIVE (NEGATIVE); LEUKO ESTERASE NEGATIVE (NEGATIVE); NITRITE NEGATIVE (NEGATIVE); PH 5.5 (5.0-9.0); SPECIFIC GRAVITY 1.025 (1.005-1.030); UROBILINOGEN 0.2 E.U./dl (0.2-1.0)
[2018-03-18 20:00] VITALS: BP 116/69
[2018-03-19] VITALS (10 sets, daily range): BP systolic 119–150; BP diastolic 61–88
[2018-03-19 05:49] LABS: ALBUMIN 2.6 gm/dl (3.1-4.5); ALKALINE PHOSPHATASE 71 U/L (45-117); BUN 23 mg/dl (7-24); CHLORIDE 103 mmol/L (98-107); CREATININE 0.43 mg/dL (0.55-1.02); POTASSIUM 3.8 mmol/L (3.5-5.1); SGOT/AST 20 IU/L (3-35); SGPT/ALT 14 U/L (12-78); SODIUM 140 mmol/L (136-145); TOTAL PROTEIN 6.5 gm/dL (6.4-8.2)
[2018-03-19 05:50] LABS: HEMATOCRIT 34.8 % (37.0-47.0); HEMOGLOBIN 10.5 g/dl (12.0-16.0); LYMPH # 0.4 10*3/uL (1.3-4.4); LYMPH % 4.1 % (27.0-41.0); MEAN CELL VOLUME 91.8 fl (81.0-99.0); MEAN CORPUSCULAR HGB 27.7 pg (27.0-31.0); MEAN CORPUSCULAR HGB CONC 30.2 g/dl (33.0-37.0); MEAN PLATELET VOLUME 10.5 fl (9.6-12.3); MONO # 0.6 10*3/uL (0.1-1.0); MONO % 5.7 % (3.0-9.0); NEUT # 8.8 10*3/uL (2.3-7.9); NEUT % 89.6 % (47.0-73.0); PLATELET COUNT AUTOMATED 353 10*3/uL (130-400); RED BLOOD COUNT 3.79 10*6/uL (4.10-5.10); RED CELL DISTRI WIDTH 16.2 % (0-14.5); WHITE BLOOD COUNT 9.8 10*3/uL (4.8-10.8)
[2018-03-20] VITALS: BP 137/72
[2018-03-20 04:00] VITALS: BP 138/93
[2018-03-20 05:26] LABS: ALBUMIN 2.5 gm/dl (3.1-4.5); ALKALINE PHOSPHATASE 59 U/L (45-117); BUN 22 mg/dl (7-24); CHLORIDE 108 mmol/L (98-107); CREATININE 0.43 mg/dL (0.55-1.02); SGOT/AST 16 IU/L (3-35); SGPT/ALT 14 U/L (12-78); SODIUM 145 mmol/L (136-145); TOTAL PROTEIN 6.1 gm/dL (6.4-8.2)
[2018-03-20 06:05] LABS: HEMATOCRIT 36.1 % (37.0-47.0); HEMOGLOBIN 10.5 g/dl (12.0-16.0); LYMPH # 0.4 10*3/uL (1.3-4.4); LYMPH % 5.7 % (27.0-41.0); MEAN CELL VOLUME 93.3 fl (81.0-99.0); MEAN CORPUSCULAR HGB 27.1 pg (27.0-31.0); MEAN CORPUSCULAR HGB CONC 29.1 g/dl (33.0-37.0); MEAN PLATELET VOLUME 10.9 fl (9.6-12.3); MONO # 0.4 10*3/uL (0.1-1.0); MONO % 5.5 % (3.0-9.0); NEUT # 6.8 10*3/uL (2.3-7.9); NEUT % 87.5 % (47.0-73.0); PLATELET COUNT AUTOMATED 344 10*3/uL (130-400); RED BLOOD COUNT 3.87 10*6/uL (4.10-5.10); RED CELL DISTRI WIDTH 16.2 % (0-14.5); WHITE BLOOD COUNT 7.8 10*3/uL (4.8-10.8)
[2018-03-20 08:00] VITALS: BP 133/85
[2018-03-20 12:00] VITALS: BP 119/79
[2018-03-20 16:00] VITALS: BP 138/78
[2018-03-20 20:00] VITALS: BP 136/77
[2018-03-21] VITALS (7 sets, daily range): BP systolic 119–195; BP diastolic 75–94
[2018-03-21 04:03] LABS: ADENOVIRUS Negative (Negative); INFLUENZA A Negative (Negative); INFLUENZA B Negative (Negative); METAPNEUMOVIRUS Negative (Negative); PARAINFLUENZA 1 Negative (Negative); PARAINFLUENZA 2 Negative (Negative); PARAINFLUENZA 3 Negative (Negative); RHINOVIRUS Negative (Negative); RSV A Negative (Negative); RSV B Negative (Negative)
[2018-03-21 07:08] LABS: BASO % 0.2 % (0.0-1.0); HEMATOCRIT 39.6 % (37.0-47.0); HEMOGLOBIN 11.6 g/dl (12.0-16.0); LYMPH # 0.6 10*3/uL (1.3-4.4); LYMPH % 5.3 % (27.0-41.0); MEAN CELL VOLUME 94.1 fl (81.0-99.0); MEAN CORPUSCULAR HGB 27.6 pg (27.0-31.0); MEAN CORPUSCULAR HGB CONC 29.3 g/dl (33.0-37.0); MEAN PLATELET VOLUME 10.2 fl (9.6-12.3); MONO # 0.6 10*3/uL (0.1-1.0); MONO % 5.8 % (3.0-9.0); NEUT # 9.1 10*3/uL (2.3-7.9); NEUT % 87.4 % (47.0-73.0); PLATELET COUNT AUTOMATED 405 10*3/uL (130-400); RED BLOOD COUNT 4.21 10*6/uL (4.10-5.10); RED CELL DISTRI WIDTH 15.9 % (0-14.5); WHITE BLOOD COUNT 10.4 10*3/uL (4.8-10.8)
[2018-03-21 07:44] LABS: ALBUMIN 2.7 gm/dl (3.1-4.5); ALKALINE PHOSPHATASE 68 U/L (45-117); BUN 22 mg/dl (7-24); CHLORIDE 102 mmol/L (98-107); CREATININE 0.53 mg/dL (0.55-1.02); POTASSIUM 4.4 mmol/L (3.5-5.1); SGOT/AST 16 IU/L (3-35); SGPT/ALT 21 U/L (12-78); SODIUM 141 mmol/L (136-145); TOTAL PROTEIN 6.5 gm/dL (6.4-8.2)
[2018-03-22] VITALS: BP 123/82
[2018-03-22 04:00] VITALS: BP 137/83
[2018-03-22 08:00] VITALS: BP 140/80
[2018-03-22 12:00] VITALS: BP 139/77
[2018-03-22 16:00] VITALS: BP 138/87
[2018-03-22 20:00] VITALS: BP 174/97
[2018-03-23] VITALS (9 sets, daily range): BP systolic 128–166; BP diastolic 78–90
[2018-03-24] VITALS (15 sets, daily range): BP systolic 118–175; BP diastolic 72–103
[2018-03-24 07:25] LABS: BUN 27 mg/dl (7-24)
[2018-03-24 16:11] LABS: ACID FAST SPEC PROCESSING Concentration (.)
[2018-03-25] VITALS: BP 133/73
[2018-03-25 08:00] VITALS: BP 122/76
[2018-03-25] MEDS ORDERED: TYLENOL EXTRA500 M2 PO (10:34)
[2018-03-25] MEDS ORDERED: VANCOMYCIN500 MG/100 IV (10:34)
[2018-03-25 12:00] VITALS: BP 140/80
[2018-04-27] MEDS ORDERED: NORCO 5-325 TA1 EACH PO (13:16)
[2018-04-27] MEDS ORDERED: LEVOFLOXACIN500 MG PO (13:21)
[2018-04-27] MEDS ORDERED: BREO ELLIPTA 11 EACH INH (13:21)
[2018-04-27] MEDS ORDERED: DULCOLAX10 M1 R (13:27)
[2018-05-06 16:09] LABS: ACID FAST CULTURE Negative (.)
[2018-05-22] MEDS ORDERED: ELIQUIS5 M1 PO (19:18)
[2018-05-22] MEDS ORDERED: ACETAMINOPHEN500 M4 PO (19:25)
[2018-05-23] MEDS ORDERED: LEXAPRO20 MG PO (09:23)
[2018-05-25] MEDS ORDERED: IBU800 M2 PO (09:11)
[2018-05-28 16:11] LABS: ORGANISM ID, MOLD Final report (.); RESULT 1 Final Identification (.)
[2018-06-02] MEDS ORDERED: HALOPERIDOL5 MG/1 M1 IV (18:21)
== END 2018-03-25 15:30 | DRG 981 ==
LOC: ED 11:01 → ICCU 13:45 → EDHOLD 13:45 → 5E 14:10 → ICCU 03-17 15:02 → 5E 03-23 00:13
PROVIDERS: Family Medicine; Internal Medicine Critical Care Medicine; Nurse Practitioner Family; ADMIT Internal Medicine
PROC: 5A09357 Assistance with Respiratory Ventilation, Less than 24 Consecutive Hours, Continuous Positive Airway Pressure (ICD-10-PCS; 2018-03-17)
PROC: 5A09357 Assistance with Respiratory Ventilation, Less than 24 Consecutive Hours, Continuous Positive Airway Pressure (ICD-10-PCS; 2018-03-18)
PROC: 0JPT0WZ Removal of Totally Implantable Vascular Access Device from Trunk Subcutaneous Tissue and Fascia, Open Approach (ICD-10-PCS; 2018-03-19)
PROC: 5A09357 Assistance with Respiratory Ventilation, Less than 24 Consecutive Hours, Continuous Positive Airway Pressure (ICD-10-PCS; 2018-03-19)
PROC: 5A09357 Assistance with Respiratory Ventilation, Less than 24 Consecutive Hours, Continuous Positive Airway Pressure (ICD-10-PCS; 2018-03-20)
PROC: 5A09357 Assistance with Respiratory Ventilation, Less than 24 Consecutive Hours, Continuous Positive Airway Pressure (ICD-10-PCS; 2018-03-21)
PROC: 5A09357 Assistance with Respiratory Ventilation, Less than 24 Consecutive Hours, Continuous Positive Airway Pressure (ICD-10-PCS; 2018-03-22)
PROC: 0BC18ZZ Extirpation of Matter from Trachea, Via Natural or Artificial Opening Endoscopic (ICD-10-PCS; principal; 2018-03-23)
PROC: 0BC98ZZ Extirpation of Matter from Lingula Bronchus, Via Natural or Artificial Opening Endoscopic (ICD-10-PCS; principal; 2018-03-23)
PROC: 0BC88ZZ Extirpation of Matter from Left Upper Lobe Bronchus, Via Natural or Artificial Opening Endoscopic (ICD-10-PCS; principal; 2018-03-23)
PROC: 0BC78ZZ Extirpation of Matter from Left Main Bronchus, Via Natural or Artificial Opening Endoscopic (ICD-10-PCS; principal; 2018-03-23)
PROC: 0BC68ZZ Extirpation of Matter from Right Lower Lobe Bronchus, Via Natural or Artificial Opening Endoscopic (ICD-10-PCS; principal; 2018-03-23)
PROC: 0BC38ZZ Extirpation of Matter from Right Main Bronchus, Via Natural or Artificial Opening Endoscopic (ICD-10-PCS; principal; 2018-03-23)
PROC: 0BC58ZZ Extirpation of Matter from Right Middle Lobe Bronchus, Via Natural or Artificial Opening Endoscopic (ICD-10-PCS; principal; 2018-03-23)
PROC: 0BC48ZZ Extirpation of Matter from Right Upper Lobe Bronchus, Via Natural or Artificial Opening Endoscopic (ICD-10-PCS; principal; 2018-03-23)
PROC: 0BCB8ZZ Extirpation of Matter from Left Lower Lobe Bronchus, Via Natural or Artificial Opening Endoscopic (ICD-10-PCS; principal; 2018-03-23)
PROC: 02H633Z Insertion of Infusion Device into Right Atrium, Percutaneous Approach (ICD-10-PCS; 2018-03-23)
PROC: 5A09357 Assistance with Respiratory Ventilation, Less than 24 Consecutive Hours, Continuous Positive Airway Pressure (ICD-10-PCS; 2018-03-23)
PROC: 0PU43JZ Supplement Thoracic Vertebra with Synthetic Substitute, Percutaneous Approach (ICD-10-PCS; 2018-03-24)
PROC: 5A09357 Assistance with Respiratory Ventilation, Less than 24 Consecutive Hours, Continuous Positive Airway Pressure (ICD-10-PCS; 2018-03-24)
PROC: 5A09357 Assistance with Respiratory Ventilation, Less than 24 Consecutive Hours, Continuous Positive Airway Pressure (ICD-10-PCS; 2018-03-25)
DX: T80.211A Bloodstream infection due to central venous catheter, initial encounter (principal); A41.9 Sepsis, unspecified organism; E43 Unspecified severe protein-calorie malnutrition; J96.21 Acute and chronic respiratory failure with hypoxia; J96.22 Acute and chronic respiratory failure with hypercapnia; F33.0 Major depressive disorder, recurrent, mild; I38 Endocarditis, valve unspecified; I82.501 Chronic embolism and thrombosis of unspecified deep veins of right lower extremity; M80.08XA Age-related osteoporosis with current pathological fracture, vertebra(e), initial encounter for fracture; F41.1 Generalized anxiety disorder; I10 Essential (primary) hypertension; G25.81 Restless legs syndrome; K21.0 Gastro-esophageal reflux disease with esophagitis; J20.9 Acute bronchitis, unspecified; N32.81 Overactive bladder; R62.7 Adult failure to thrive; G83.9 Paralytic syndrome, unspecified; J45.50 Severe persistent asthma, uncomplicated; J43.2 Centrilobular emphysema; B95.62 Methicillin resistant Staphylococcus aureus infection as the cause of diseases classified elsewhere; B96.3 Hemophilus influenzae [H. influenzae] as the cause of diseases classified elsewhere; I48.91 Unspecified atrial fibrillation; G43.909 Migraine, unspecified, not intractable, without status migrainosus; Z99.81 Dependence on supplemental oxygen; Z79.01 Long term (current) use of anticoagulants; Z79.52 Long term (current) use of systemic steroids; Z87.891 Personal history of nicotine dependence; Z88.8 Allergy status to other drugs, medicaments and biological substances; Y83.8 Other surgical procedures as the cause of abnormal reaction of the patient, or of later complication, without mention of misadventure at the time of the procedure; Y92.89 Other specified places as the place of occurrence of the external cause; Z87.01 Personal history of pneumonia (recurrent); Z82.49 Family history of ischemic heart disease and other diseases of the circulatory system; Z82.5 Family history of asthma and other chronic lower respiratory diseases; Z80.52 Family history of malignant neoplasm of bladder; Z79.899 Other long term (current) drug therapy; Z88.1 Allergy status to other antibiotic agents

== ENCOUNTER → 2018-04-10 | Outpatient (CLI) | payer MEDICARE ==
[~2018-04-10] MED LIST changes: +ACETAMINOPHEN500 M4 PO; +BREO ELLIPTA 11 EACH INH; +HALOPERIDOL5 MG/1 M1 IV; +IBU800 M2 PO; +LEVOFLOXACIN500 MG PO; +MEDROL DOSEPAK4 MG PO; +MILK OF MA400 MG/51 PO; +NORCO 5-325 TA1 EACH PO; +PREDNISONE20 M1 PO; +VANCOMYCIN500 MG/100 IV; +VITAMIN D22000 UNIT PO; +ZOLOFT50 MG PO
== END | disposition home or self-care (01) ==
LOC: RAD 09:49
DX: M54.5 Low back pain (principal); Z98.890 Other specified postprocedural states

== ENCOUNTER → 2018-04-28 | Day surgery (SDC) | payer MEDICARE ==
[~2018-04-28] VITALS: Ht 152.4 cm; Wt 41.3 kg
--- NOTE | ~2018-04-28 | PROC NOTE ---
[place], [place] PROCEDURE NOTE [id number] UN[facility] #: [id number] ROOM: DOCTOR: SONI RAZA MD,NINO BIRTHDATE: [birth year] DOS: 04/28/2018 FIBEROPTIC BRONCHOSCOPY NOTE PREOPERATIVE DIAGNOSES: The patient with persistent nonresolving cough, currently treated with maximum medical management therapy with exacerbation of chronic obstructive pulmonary disease staying in the intermediate facility. POSTOPERATIVE DIAGNOSES: Removal of moderate to large amount of thick mucus impaction major airway. Finding of acute tracheobronchitis. COMPLICATIONS: None. PROCEDURE DESCRIPTION: Informed consent obtained for the patient. She was brought to the OR and placed in supine position. Conscious sedation administered by the Anesthesia Department. After that, airway introduced in the mouth. Bronchoscope advanced to airway into the laryngeal area. Epiglottis and vocal cords were seen. Vocal cords were moving symmetrically with the movements. The bronchoscope advanced to vocal cord and tracheal lumen noted with moderate amount of thick mucus secretion with small purulent secretions suctioned out to the sammy level. Right upper, right middle, right lower, left upper, lingular lower bronchi were all examined. Similar secretion noted in tracheal lumen was also identified and removal of the mucus plugs and endobronchial tree bilaterally without any difficulty. Postoperative findings will be discussed with the patient rather once he recovers the effects of acute sedation. The patient will be transferred back to the intermediate facility after stabilization in the recovery room for the patient. NINO SHAFER MD CM:PROCNOTE:PROCEDURE NOTE [id number] NINO RAZA MD
--- NOTE | ~2018-04-28 | PR ---
[place], [place] PROGRESS NOTE NAME[id number] UN[facility] #: [id number] ROOM: DOCTOR: SONI RAZA MD,NINO BIRTHDATE: [birth year] DOS: 05/25/2018 SUBJECTIVE: The patient was still complaining of symptoms of chest congestion and shortness breath, generalized weakness and fatigue. Denies symptoms of fever or chills. Denies symptoms of hemoptysis. Denies symptoms of nausea or vomiting. OBJECTIVE: VITAL SIGNS: Normal temperature, respiratory rate 19, heart rate 99, blood pressure 144/90-123/85. The pulse oxygen saturation 6 liters 97% saturation. HEENT: Examination shows head was atraumatic. Eyes nonicterus. NECK: Supple. CARDIOVASCULAR: S1, S2 is audible. LUNGS: The patient was noted without any crackles. Breaths are noted decreased bilaterally with scattered expiratory wheezing. ABDOMEN: Soft, nontender. Bowel sounds present. EXTREMITIES: No acute edema. LABORATORY DATA: CBC and the labs today, WBC count 22.0, hemoglobin 7.6, hematocrit 27.1 with a normal platelet count. IMPRESSION: The patient who has been currently noted at this time ongoing acute exacerbation of chronic obstructive pulmonary disease, acute pneumonia, treated with the Levaquin. Leukocytosis observed for the patient, but there were no other cultures noted to assess patient's current worsening of the leukocytosis. The patient remains afebrile. PLAN OF TREATMENT: Continue current plan of management at this time with antibiotics, bronchodilators and corticosteroids. The leukocytosis has worsened certainly add additional coverage of antibiotics such as vancomycin for the patient. NINO SHAFER MD CM:PNTRANS [id number] NINO RAZA MD 05/26/18 1228 [email or web address] [email or web address]
[2018-04-28 07:15] VITALS: BP 132/85
[2018-04-28 08:49] VITALS: BP 141/90
[2018-04-28 09:04] VITALS: BP 169/95
[2018-04-28 09:20] VITALS: BP 169/84
[2018-04-29 14:11] LABS: ACID FAST SPEC PROCESSING Concentration (.)
[2018-06-10 11:05] LABS: ACID FAST CULTURE Negative (.)
== END | disposition home or self-care (01) ==
LOC: SDC 04-21 17:00
PROVIDERS: Internal Medicine Critical Care Medicine
DX: J40 Bronchitis, not specified as acute or chronic (principal); J44.1 Chronic obstructive pulmonary disease with (acute) exacerbation; J96.12 Chronic respiratory failure with hypercapnia; J96.11 Chronic respiratory failure with hypoxia; Z91.048 Other nonmedicinal substance allergy status; K21.9 Gastro-esophageal reflux disease without esophagitis; I10 Essential (primary) hypertension; I25.2 Old myocardial infarction; G43.909 Migraine, unspecified, not intractable, without status migrainosus; F41.9 Anxiety disorder, unspecified; F32.9 Major depressive disorder, single episode, unspecified; Z87.891 Personal history of nicotine dependence; Z98.890 Other specified postprocedural states; Z88.8 Allergy status to other drugs, medicaments and biological substances; Z87.01 Personal history of pneumonia (recurrent); Z79.899 Other long term (current) drug therapy; Z86.718 Personal history of other venous thrombosis and embolism; Z83.3 Family history of diabetes mellitus

== ENCOUNTER 2018-04-30 10:19 | Inpatient (IN) | payer MEDICARE ==
[2018-04-30] VITALS (8 sets, daily range): BP systolic 111–121; BP diastolic 44–78
[~2018-04-30] VITALS: Ht 152.4 cm; Wt 42.2 kg
--- NOTE | ~2018-04-30 | PR ---
[place], [place] PROGRESS NOTE NAME: [id number] UN[facility] #: [id number] ROOM: 401 DOCTOR: DARCIE MULLIGAN MD BIRTHDATE: [birth year] DOS: 05/24/2018 SUBJECTIVE: The patient is still short of breath and very weak. OBJECTIVE: VITAL SIGNS: Blood pressure 122/84, heart rate 97 beats per minute, breathing 16 times per minute, temperature 98 degrees Fahrenheit. GENERAL APPEARANCE: The patient is alert and oriented x 3, in no visible distress. HEENT AND NECK: Exam within normal limits. CARDIOVASCULAR SYSTEM: Heart rate is regular in rate and rhythm. S1 and S2 normally audible. LUNGS: Decreased breath sounds, cachexia. ABDOMEN: Soft, nontender. No obvious organomegaly. Bowel sounds are present. EXTREMITIES: Without significant cyanosis or edema. IMPRESSION: 1. The patient with advanced adult failure to thrive, working with physical therapy. 2. Advanced end-stage lung disease with poor prognosis. The patient has decided against hospice for now. 3. Acute exacerbation of chronic obstructive pulmonary disease with acute over chronic respiratory failure, being treated with BiPAP by Zack Real, oxygen, antibiotics. 4. Pneumonia, being treated with antibiotics. Last cultures were positive for Stenotrophomonas maltophilia. 5. T8 compression fracture of the vertebra, status post kyphoplasty, pains controlled. 6. Advance failure to thrive. The patient is working with physical therapy. DARCIE MULLIGAN MD CM:PNTRANS [id number] DARCIE MULLIGAN MD 05/26/18 1227 MELITON [email or web address]
--- NOTE | ~2018-04-30 | PR ---
[place], [place] PROGRESS NOTE [id number] UN[facility] #: [id number] ROOM: 401 DOCTOR: SONI RAZA MD,NINO BIRTHDATE: [birth year] DOS: 05/02/2018 SUBJECTIVE: The patient noted comfortable at this time, resting on the bed, still noted and generalized weakness and fatigued, use the BiPAP few hours. She does have some cough, chest congestion noted and fatigue. Continue intravenous antibiotics and oral antibiotics. Her oral intake was noted significantly limited. She has been using the nutrition supplements. There were ordered. The family, the patient, question possible consideration of PEG tube as well. The remaining review was noted as limited, but negative. She has been receiving the morphine p.r.n. because of the chest pain and other distress. OBJECTIVE: VITAL SIGNS: Normal temperature, respiratory rate of 22, heart rate of 110-89, blood pressure 112/60. The pulse oxygen saturation recorded on the BiPAP as 98% saturation with the nasal cannula 6 liters 96% saturation. HEAD, EYES, EARS, NOSE, AND THROAT: Examination shows head was atraumatic. Eyes nonicterus. NECK: Supple. CARDIOVASCULAR SYSTEM: S1, S2 is audible. LUNGS: Noted with general reduction of the breath sounds, occasional wheezing. There were no crackles. ABDOMEN: Soft, nontender. EXTREMITIES: Without any new acute change. Loss of muscle mass. SKIN: Visible skin without any lesions or rashes. MUSCULOSKELETAL: Kyphosis of the spine. SKIN: Visible skin and no lesions without any acute abnormalities. Central nervous generalized weakness and fatigue. LABORATORY DATA: Blood culture, which were done on the showed no bacterial growths. IMPRESSION: 1. The patient would be noted with acute pneumonia Stenotrophomonas maltophilia. 2. The patient with severe general weakness and fatigue. 3. Acute exacerbation of chronic obstructive pulmonary disease. 4. Respiratory failure. 5. Multilevel compression fracture of the thoracic spine with the osteoporosis. 6. Chronic steroid dependency. PLAN OF TREATMENT: No changes in the plan of care at this time except starting the patient on procalamine for calorie support. Continuation of the pulmonary care supplement as well. This calorie count intake should be considered sufficient. The patient is not noted in the physical and medical condition to undergo the PEG tube safely. PEG tube consideration could be done if the patient does show improvement in overall medical status in the next few days. [place], [place] PROGRESS NOTE NAME: AZAR REYNOSO UNIT #: [id number] ROOM: 401 DOCTOR: NINO CAR MD BIRTHDATE: [birth year] NINO SHAFER MD CM:MARIEL [id number] NINO RAZA MD 05/18/18 0948 interface
--- NOTE | ~2018-04-30 | PR ---
[place], [place] PROGRESS NOTE NAME: AZAR REYNOSO UNIT #: [id number] ROOM: [facility] DOCTOR: DACRIE MULLIGAN MD BIRTHDATE: [birth year] DOS: 05/01/2018 SUBJECTIVE: The patient is still quite short of breath and having difficulty with breathing. OBJECTIVE: VITAL SIGNS: Blood pressure 120/64, heart rate of 105 beats per minute, breathing 22 times per minute, afebrile. GENERAL APPEARANCE: The patient is alert and oriented x 3, in no visible distress, except for cachexia, generalized weakness. HEENT AND NECK: Exam within normal limits. CARDIOVASCULAR SYSTEM: Heart rate is regular in rate and rhythm. S1 and S2 normally audible. LUNGS: Clear to auscultation. ABDOMEN: Soft, nontender. No obvious organomegaly. Bowel sounds are present. EXTREMITIES: Without significant cyanosis or edema. IMPRESSION AND PLAN: 1. The patient with acute exacerbation of end-stage chronic obstructive pulmonary disease with acute over chronic respiratory failure. Continues to be treated with antibiotics, bronchodilators. Dr. Gibbons, the wire brush maker is following her. The patient has end-stage lung disease and has a suboptimal long-term prognosis. The patient maintains a full code status, but at the same time is reluctant to go for intubation and mechanical ventilation. The patient has not made up her mind yet and maintains a full code status despite of her end-stage lung disease. 2. Chronic back pains with T8 compression fracture, which has been treated with kyphoplasty, managed with pain medications. 3. Major depression, recurrent, mild, being followed and to be treated. 4. Gastroesophageal reflux disease and esophagitis, asymptomatic with omeprazole. 5. Benign essential hypertension. Blood pressure is being monitored and treated. 6. Mild protein calorie malnutrition. The patient to work with Dietary. 7. Chronic constipation, opioid-induced. Constipation is being treated with MiraLax. [place], [place] PROGRESS NOTE NAME: AZAR REYNOSO UNIT #: [id number] ROOM: [facility] DOCTOR: DARCIE MULLIGAN MD BIRTHDATE: [birth year] DARCIE MULLIGAN MD CM:PNTRANS [id number] 1044 DARCIE MULLIGAN MD 05/02/18 1045 interface
--- NOTE | ~2018-04-30 | WRIGHTHP ---
[place], [place] PATIENT HISTORY AND PHYSICAL EXAM NAME: AZAR REYNOSO [facility] #: [id number] UNIT #: [id number] ROOM: [facility] DOCTOR: DARCIE MULLIGAN MD BIRTHDATE: [birth year] DOS: 04/30/2018 HISTORY OF PRESENT ILLNESS: The patient is a 57-year-old female with a past medical history of: 1. Severe end-stage COPD with chronic respiratory failure. 2. T8 compression fracture, status post kyphoplasty by Dr. Garcia. 3. History of deep venous thrombosis and anticoagulation with Xarelto. 4. Postmenopausal osteoporosis. 5. Generalized anxiety disorder. 6. Benign essential hypertension. 7. Major depression, recurrent, mild. 8. Gastroesophageal reflux disease and esophagitis. 9. Migraine type headaches. 10. Restless leg syndrome. 11. Recently, the patient was treated with antibiotics for increased shortness of breath and acute exacerbation of COPD at the [facility] and she started improving but her breathing became worse again and her pulse ox started dropping, so she was sent to the Emergency Department and was found to have pneumonia, sepsis, and acute over chronic respiratory failure and admitted to the ICU for close monitoring with consult for the ironing pleater and infectious disease specialist. The patient had white cell count elevated to 14,600. REVIEW OF SYSTEMS: RESPIRATORY: Increasing shortness of breath and wheezing. GASTROINTESTINAL: No nausea, vomiting, diarrhea, or constipation. CARDIOVASCULAR: No chest pains or palpitations. FAMILY HISTORY: Noncontributory. HOME MEDICATIONS: The patient takes breathing treatments with DuoNeb, Fosamax, Xanax, diltiazem, vitamin D, Daliresp, ropinirole, Zoloft, Topamax, Dulcolax, MiraLax, omeprazole. ALLERGIES: TO IMIPENEM, CEFEPIME. PHYSICAL EXAMINATION: GENERAL: She is alert, oriented x 3, somewhat short of breath, but in no distress, cachectic, very weak with generalized weakness. HEENT AND NECK: Extraocular movements are intact. Sclerae are anicteric. Oral mucosa is moist and clean. No obvious facial weakness. Neck is supple without any lymphadenopathy. No thyromegaly. No JVD. No carotid arterial bruits. LUNGS: Decreased breath sounds all over on lung auscultation. CARDIOVASCULAR SYSTEM: Heart rate is regular in rate and rhythm. S1 and S2 normally audible. No significant murmur or any other abnormal cardiac sounds. ABDOMEN: Soft, nontender. No obvious organomegaly. Bowel sounds are present. No obvious herniation. EXTREMITIES: Without significant cyanosis or edema. Warm to touch. CENTRAL NERVOUS SYSTEM: Alert and oriented x 3. Cranial nerves II-XII are intact. Speech is normal. The patient is able to move all extremities. Normal muscle strength. Deep tendon reflexes are equal on both sides. Plantars were [place], [place] PATIENT HISTORY AND PHYSICAL EXAM NAME: AZAR REYNOSO UNIT #: [id number] ROOM: [facility] DOCTOR: DARCIE MULLIGAN MD BIRTHDATE: [birth year] downgoing. IMPRESSION AND PLAN: 1. The patient with acute exacerbation of severe underlying chronic obstructive pulmonary disease with acute over chronic respiratory failure, maintained the full code status. The patient was admitted to ICU, and consults were obtained with ironing pleater, Dr. Gibbons, Infectious disease specialist, Dr. Abdi. The patient to be treated with bronchodilators, corticosteroids, oxygen and antibiotics. 2. The patient with pneumonia in the left lower lung and right lower lung, acute pneumonia to be treated with antibiotics and followed by infectious disease specialist. The patient has been continued on Levaquin. Failed outpatient treatment with antibiotics and the patient's white cell count was elevated to 14,600. 3. Malnutrition, cachexia, advanced adult failure to thrive, albumin level of 3. 4. Mild to moderate protein calorie malnutrition. 5. Advanced liver failure, the patient will be kept on physical therapy. 6. Benign essential hypertension, treated with diltiazem. 7. Chronic back pain with compression fracture of T8, treated with hydrocodone as needed. 8. Chronic constipation, an opioid induced constipation, treated with MiraLax. 9. Major depression, recurrent, moderate, treated with Zoloft. 10. Postmenopausal osteoporosis, treated with Fosamax, calcium and vitamin D. DARCIE MULLIGAN MD CM:HISPHYS:PATIENT HISTORY AND PHYSICAL EXAMINATION 01 13 DARCIE MULLIGAN MD 05/01/18 1049 interface
--- NOTE | ~2018-04-30 | PR ---
[place], [place] PROGRESS NOTE [id number] #: [id number] ROOM: 415 DOCTOR: SONI RAZA MD,NINO BIRTHDATE: [birth year] DOS: 05/05/2018 PULMONARY PROGRESS NOTE SUBJECTIVE: She has been transferred to a single room. She has been noted awake. She was noted with some anxiety and shortness of breath on this morning of assessment, but otherwise appeared to be comfortable. She used the BiPAP at times, and this morning, using oxygen supplementation through nasal cannula. Denies symptoms of fever or chills or hemoptysis. She does not have an excessive chest congestion. Denies symptoms of nausea, vomiting, diarrhea, abdominal pain, hematemesis, melena, or hematochezia. Denies pain of the lower extremity. Back pain has been reported, treated with the use of morphine sulfate. The remaining systems review were noted negative. OBJECTIVE: VITAL SIGNS: Normal temperature, respiratory rate of 20-18, heart 101-88, blood pressure 140/79 to 131/68. Pulse oxygen saturation on 6 liters was 96% saturation. HEENT: Head was atraumatic, eyes nonicterus. NECK: Supple. CARDIOVASCULAR: S1 and S2 audible. LUNGS: Moderate decreased breath sounds. Occasional wheezing. No crackles. ABDOMEN: Soft, nontender. Bowel sounds present. EXTREMITIES: Without any acute edema. MUSCULOSKELETAL: Without any acute deformities. LABORATORY DATA: Nasopharynx swab for virus assessment noted positive RSV B type from 04/30/2018, reported today. IMPRESSION: 1. The patient with acute Stenotrophomonas maltophilia pneumonia with bronchitis. 2. Acute on chronic hypoxic respiratory failure. 3. Acute exacerbation of chronic obstructive pulmonary disease. 4. Respiratory syncytial virus infection and bronchitis as well. 5. Overall debility with multilevel compression fractures of the thoracic spine. 6. Chronic anticoagulation with history of deep venous thrombosis previously. 7. The patient with severe cachexia as well with protein-calorie malnutrition. PLAN OF MANAGEMENT: The patient appears to be comfortable at this time. Continue morphine sulfate. Continue antibiotics and bronchodilators. Respiratory isolation precautions. Bronchodilators, use of BiPAP, and other therapy. Physical therapy only as tolerated. Assessment and management of the patient has been discussed with the patient's daughter. [place], [place] PROGRESS NOTE NAME: AZAR REYNOSO UNIT #: [id number] ROOM: [facility] DOCTOR: NINO CAR MD BIRTHDATE: [birth year] NINO SHAFER MD CM:MARIEL [id number] NINO RAZA MD 05/05/18 3720 interface
--- NOTE | ~2018-04-30 | PR ---
[place], [place] PROGRESS NOTE NAME: AZAR REYNOSO UNIT #: [id number] ROOM: 401 DOCTOR: NINO CAR MD BIRTHDATE: [birth year] DOS: 05/24/2018 PULMONARY PROGRESS NOTE SUBJECTIVE: She was still noticed with symptoms of shortness of breath, chest congestion, and cough. Using the BiPAP and oxygen supplementation stated more improvement in the mental status. Denies symptoms of fever or chills. OBJECTIVE: VITAL SIGNS: Normal temperature, respiratory rate 20, heart rate 108, blood pressure 127/81. Pulse oxygen saturation recorded as 94% saturation on 4 liters cannula. HEENT: Head was atraumatic. Eyes nonicterus. NECK: Supple. CARDIOVASCULAR: S1, S2 audible. LUNGS: Moderate decreased breath sounds without any wheezing or crackles. ABDOMEN: Soft, nontender, bowel sounds present. EXTREMITIES: No edema, clubbing or cyanosis. LABORATORY DATA: CBC that was done this morning was noted with hemoglobin of 7.6, hematocrit 27.8, WBC count 14.8. IMPRESSION: 1. Acute tracheobronchitis with acute pneumonia with gram-negative infection, currently considered and will be treated. The patient will be continued on the Levaquin. 2. The patient with respiratory failure as well treated with the BiPAP and oxygen supplementation. 3. Severe debility remains persistent with other medical illnesses. PLAN OF MANAGEMENT: Continuation of the bronchodilators, oxygen supplementation. Monitoring the anemia. No changes in treatment will be needed today. Supportive care, other therapy, plan of management. [place], [place] PROGRESS NOTE NAME: AZAR REYNOSO UNIT #: [id number] ROOM: 401 DOCTOR: NINO CAR MD BIRTHDATE: [birth year] NINO SHAFER MD CM:PNTRANS [id number] NINO RAZA MD 05/26/18 1227 MELITON [email or web address]
--- NOTE | ~2018-04-30 | CON ---
[place], [place] REPORT OF CONSULTATION NAME: [facility]O [id number] UNIT #: [id number] ROOM: 401 DOCTOR: SONI RAZA MDNINO BIRTHDATE: [birth year] DOS: 05/01/2018 PULMONARY CONSULTATION AND EVALUATION CONSULTATION REQUESTED BY: Dr. Park. REASON FOR CONSULTATION: To assess the patient for acute pneumonia that has not been responding to the previous treatment and respiratory distress with shortness of breath and others. HISTORY OF PRESENT ILLNESS: This is a 57-year-old female patient who has been known with history of advanced end-stage COPD with chronic hypercapnic hypoxic respiratory failure, has been treated at [facility]. The patient has been admitted to the [facility]. She has been seen by me once a week. She was seen in the nursing facility yesterday. She has bronchoscopy done on Friday. The patient has been noted with increased lethargy, symptoms of shortness of breath, chest congestion. The bronchoscopy done on Friday was noted at that time pending cultures of gram-negative rods. She has been previously treated for acute gram-negative infection bronchitis. The patient is receiving Levaquin orally, also getting Solu-Medrol for the acute exacerbation of COPD. The symptoms have been noted worsened. The patient recommended to be assessed in the Emergency Room for hospitalization because of failure of improvement as an outpatient in the shelter facility. She has been admitted to the Intensive Care Unit where she stays at this time. Noted with significant weakness and fatigue and not noted much functional. The cough has been noted for the patient mild to moderate intermittently. Denies symptoms of pain in the chest. The patient has been noted pain, intermittent in the chest related to the previous compression fractures of the thoracic spine, which has been currently noted controlled. She does not have any symptoms of hemoptysis. REVIEW OF SYSTEMS: CONSTITUTIONAL: Fatigue and tiredness reported without any symptoms of fever or chills. EYES: Denies any burning, redness, or tenderness. EARS, NOSE, THROAT SYMPTOMS: Denies sore throat, hoarseness, otalgia, postnasal drainage or epistaxis. CARDIOVASCULAR: Denies angina pain, edema, pain of the lower extremities. GASTROINTESTINAL: No dysphagia, nausea, vomiting, diarrhea, abdominal pain, hematemesis, melena, or hematochezia. GENITOURINARY: Denies dysuria, suprapubic pain, or urinary incontinence. MUSCULOSKELETAL: Acute joint pain of the major joints, but noted with the pain, which has been noted chronic in the thoracic and lumbar spine. SKIN: Denies any lesions or rashes. CENTRAL NERVOUS SYSTEM: Severe fatigue and weakness noted at this time in the past few days. There was no gross focal deficit reported. PAST MEDICAL HISTORY: 1. Noted with chronic hypercapnic respiratory failure. 2. Chronic hypoxic respiratory failure. 3. End-stage chronic obstructive pulmonary disease. [place], [place] REPORT OF CONSULTATION NAME: AZAR REYNOSO UNIT #: [id number] ROOM: 401 DOCTOR: DEBBY CAR MDM BIRTHDATE: [birth year] 4. History of frequent infection. 5. Recent admission with bacteremia with gram-positive organisms requiring removal of the MediPort and the patient has been receiving the IV vancomycin for the MediPort related bacteremia to complete the treatment for a total of 6 weeks, 4 weeks in the shelter facility. 6. History of restless leg syndrome. 7. Allergic rhinitis. 8. Severe debility. 9. Multilevel compression fracture of the thoracic spine with vertebroplasty for this patient from acute fracture of the thoracic vertebral bones. 10. History of general anxiety disorder. 11. History of chronic spastic paresis. 12. Chronic metabolic alkalosis secondary to hypercarbia. 13. Low BMI. 14. Past pneumothorax in the left side requiring a surgical intervention with the chest tube insertion and then VATS procedure subsequently. 15. DVT of the extremities, the patient is on anticoagulation. 16. Chronic steroid dependency. 17. Use of noninvasive ventilator for the medical management of chronic hypercapnic and hypoxic respiratory failure as well. PAST SURGICAL HISTORY: 1. Therapeutic bronchoscopy. Labs were done on 04/28/2018. 2. Removal of benign cyst. 3. MediPort insertion and then subsequent removal because of infection, currently has a PICC line in place. 4. VATS procedure, left side in 2014. 5. Previous intubation of mechanical ventilation. 6. Vertebroplasty, the last one done during her admission in 03/2018. SOCIAL HISTORY: The patient is , currently residing in nursing facility, living at home prior to that. Smoking noted from age [age] years old, 2 packs of cigarettes per day that was discontinued several years ago. There was no history of alcohol use and illicit drug use. FAMILY HISTORY: The patient's father passed at the age of 70 years, complication of congestive heart failure. Mother at the age of 57 years with complications of COPD. CURRENT MEDICATIONS: Administered was noted as Cardizem, Solu-Medrol 40 mg b.i.d. given oral, Bumex, albuterol sulfate, omeprazole, Topamax, ropinirole, Levaquin, and other p.r.n. medications. DRUG ALLERGY HISTORY: NOTED ALLERGY: 1. PRIMAXIN. 2. CEFEPIME. PHYSICAL EXAMINATION: GENERAL: This is a 57-year-old female, debilitated, weak and fatigued, currently lying in the bed. However, the patient was noted responding vocal [place], [place] REPORT OF CONSULTATION NAME: AZAR REYNOSO UNIT #: [id number] ROOM: [facility] DOCTOR: NINO CAR MD BIRTHDATE: [birth year] commands using oxygen supplementation with the nasal cannula. VITAL SIGNS: Height of the patient recorded 5 feet, weight of 93 pounds. The BMI 18. Vital signs is a normal temperature in the last 24 hours, respiratory rate range between 14-16, heart rate of 85-87, blood pressure 121/44-126/69. Pulse oxygen saturation on 6 liters nasal cannula was 100% saturation. HEENT: Examination shows head was atraumatic. Eyes nonicterus. NECK: Supple. CARDIOVASCULAR: S1, S2 audible. LUNGS: Occasional wheezing noted in the lungs with basilar crackles. ABDOMEN: Soft, nontender. EXTREMITIES: The patient with loss of muscle mass, but there was no edema. VISIBLE SKIN: No lesions or rashes. MUSCULOSKELETAL: Deformity was noted with kyphosis partial of the thoracic spine for this patient. CENTRAL NERVOUS SYSTEM: History of spastic paresis. General weakness. VISIBLE SKIN: No lesions or rashes. LABORATORY DATA: The cultures of the bronchial washing from 04/28/2018 noted with moderate growth of Stenotrophomonas maltophilia. The CBC that was done on 04/30/2018, WBC count 14.6, hemoglobin 11.2, platelet count 283,000. CMP that was done on 04/30/2018 BUN 32, creatinine normal, glucose 114. CO2 is 39. The chest x-ray that was done on 04/30/2018 shows left lower lobe infiltration. CTA of the chest was also done that was personally assessed amd does not show any evidence of pulmonary embolism. Centrilobular emphysema noted with panlobular emphysema changes bilaterally. Linear stranding with fibrotic changes noted in the left upper lobe. In addition to that small patchy infiltration in the lower lung with ground glass opacities as well. There were no discrete pulmonary nodules. By the radiologist report, the patient was also reported with acute compression fracture, loss of height for the patient's T6 vertebral bone as well and passed vertebroplasty evidence of the thoracic vertebral bodies. IMPRESSION: 1. The patient will be currently admitted to the hospital with acute pneumonia with acute bronchitis related to Stenotrophomonas maltophilia infection. 2. Severe general weakness and fatigue noted secondary to current acute infection and muscle deconditioning. 3. Intermittent chest pain related to the compression fracture of the thoracic spine with acute fracture was suggested of the T6 vertebral bone. 4. Chronic steroid dependency as well. 5. The patient with chronic hypercapnic and hypoxic respiratory failure as well treated with oxygen and the noninvasive ventilator. 6. O2 debility. 7. History of spastic paresis of the lower extremities, chronic finding. PLAN OF MANAGEMENT: The patient has been started on Bactrim orally as Bactrim-DS a higher dose 1 p.o. 3 times a day because of the patient's low BMI. The patient was also started on the Levaquin that would be continued for the concomitant management current standard of Stenotrophomonas maltophilia infection. She has been receiving the Levaquin orally at the nursing form currently receiving it intravenously higher dose. Solu-Medrol will be continued [place], [place] REPORT OF CONSULTATION NAME: AZAR REYNOSO UNIT #: [id number] ROOM: 401 DOCTOR: SONI RAZA MD,[facility] BIRTHDATE: [birth year] for the management of acute exacerbation of chronic obstructive pulmonary disease. Noninvasive ventilator will be ordered for this patient for the use of the BiPAP from the nursing facility. Other supportive therapy, plan of management, care plan for the patient as well. Usual treatment with additional treatment changes will be made according to the changes in the overall illness and available any new data and information. Code status was noted full code for at this time. Overall prognosis of the patient remains guarded. Adequate pain management of the patient's current compression fracture of the chest pain would be continued. All the comfort measures will be continued. Continuation of the Eliquis long-term management, anticoagulation as well. Supportive care. Nutritional support for the patient since the patient was not eating much of the food with the use of the 3-4 times a day with meals. Thanks for allowing me to participate in care of this patient. NINO SHAFER MD CM:CONSTR:REPORT OF CONSULTATION 1324 05/18/18 0947 interface
--- NOTE | ~2018-04-30 | PR ---
[place], [place] PROGRESS NOTE NAME: AZAR REYNOSO UNIT #: [id number] ROOM: 401 DOCTOR: DARCIE MULLIGAN MD BIRTHDATE: [birth year] DOS: 05/09/2018 SUBJECTIVE: The patient remains very weak and still short of breath. OBJECTIVE: VITAL SIGNS: Blood pressure 143/95, heart rate of 83 beats per minute, afebrile, breathing 20-24 times per minute. GENERAL APPEARANCE: Generalized weakness. HEENT AND NECK: Exam within normal limits. CARDIOVASCULAR SYSTEM: Heart rate is regular in rate and rhythm. S1 and S2 normally audible. LUNGS: Decreased breath sounds all over. The patient remains on BiPAP. ABDOMEN: Soft, nontender. No obvious organomegaly. Bowel sounds are present. EXTREMITIES: Without significant cyanosis or edema. IMPRESSION: 1. Acute over chronic respiratory failure with end-stage lung disease and poor long-term prognosis. The patient already on palliative care consult and is agreeing to talk to hospice. The patient says she wants to get better and go home. 2. Acute respiratory failure with Stenotrophomonas maltophilia growing from sputum cultures. 3. T8 compression fracture with chronic back pains and kyphoplasty. The patient's pains are being treated with pain meds. 4. Advance adult failure to thrive and poor long-term prognosis because of her end-stage lung disease. 5. Chronic constipation and opioid-induced constipation, controlled with MiraLax. 6. Major depression, recurrent. 7. Acute pneumonia, being treated with antibiotics. DARCIE MULLIGAN MD CM:PNTRANS [id number] DARCIE MULLIGAN MD 05/10/18 1321 interface
--- NOTE | ~2018-04-30 | PR ---
[place], [place] PROGRESS NOTE [id number] UNIT #: [id number] ROOM: 415 DOCTOR: DARCIE MULLIGAN MD BIRTHDATE: [birth year] DOS: 05/04/2018 SUBJECTIVE: The patient is very weak, but feeling somewhat better, has been started on physical therapy and moved to a step-down unit with a DNR arrest code status, no intubation and ventilation. OBJECTIVE: GENERAL APPEARANCE: The patient is alert and oriented x 3, in no visible distress. Generalized weakness. VITAL SIGNS: Blood pressure 133/60, heart rate 89 beats per minute, breathing 21 times per minute, temperature 99.1 degrees Fahrenheit. HEENT AND NECK: Exam within normal limits. CARDIOVASCULAR SYSTEM: Heart rate is regular in rate and rhythm. S1 and S2 normally audible. LUNGS: Decreased breath sounds all over. ABDOMEN: Soft, nontender. No obvious organomegaly. Bowel sounds are present. EXTREMITIES: Without significant cyanosis or edema. IMPRESSION: 1. The patient with acute exacerbation of severe underlying chronic obstructive pulmonary disease with acute over chronic respiratory failure. 2. Stenotrophomonas maltophilia, cultures positive with bronchitis and pneumonia. 3. Advance adult failure to thrive and ambulatory dysfunction. The patient working with physical therapy. 4. Gastroesophageal reflux disease and esophagitis, treated and asymptomatic with omeprazole. 5. Major depression, recurrent, mild, treated and followed. 6. Chronic back pains with T8 compression fracture, has been treated with kyphoplasty and pain medications. 7. Mild protein calorie malnutrition, followed by Dietary. 8. Chronic constipation and opioid-induced constipation, being treated with MiraLax. DARCIE MULLIGAN MD CM:PNTRANS [phone] DARCIE MULLIGAN MD 05/05/18219 interface
--- NOTE | ~2018-04-30 | PR ---
[place], [place] PROGRESS NOTE [id number] UN[facility] #: [id number] ROOM: 415 DOCTOR: SONI RAZA MD,NINO BIRTHDATE: [birth year] DOS: 05/06/2018 SUBJECTIVE: She was noted comfortable at this time, resting in the bed without any acute distress. There were no symptoms of fevers, chills, coughing has been noted subsiding. OBJECTIVE: VITAL SIGNS: Normal temperature, respiratory rate 20, heart rate 80, blood pressure 108/68-133/64. The pulse oxygen saturation was recorded as BiPAP, 98% saturation. HEAD, EYES, EARS, NOSE, AND THROAT: No acute change. NECK: Supple. CARDIOVASCULAR SYSTEM: S1, S2 is audible. LUNGS: Without any wheezing or crackles at the present time. ABDOMEN: Soft, nontender. Bowel sounds present. EXTREMITIES: No acute change. LABORATORY AND DIAGNOSTIC DATA: CBC that was done this morning showed WBC count 17.4, hemoglobin 10.4. Platelet count was normal. The CMP this morning, BUN 20, creatinine 0.26, glucose 156. CO2 of 36. Chest x-ray, 1 view that was done yesterday was noted with resolving infiltration in the left lower lobe. Small pleural effusion. IMPRESSION: 1. The patient with acute pneumonia Stenotrophomonas maltophilia. 2. The patient with evidence of [id number] hypercapnic hypoxic respiratory failure and acute exacerbation of COPD, acute debility. 3. Multilevel compression fracture of the thoracic spine as well. PLAN OF MANAGEMENT: Continue antibiotics, bronchodilators, and oxygen supplementation. Other therapy, plan of management, care plan to be continued. Usual care, other supportive, plan of treatment and therapies. NINO SHAFER MD CM:PNTRANS 1205 1323 NINO RAZA MD 05/06/18 1323 interface
--- NOTE | ~2018-04-30 | PR ---
[place], [place] PROGRESS NOTE [id number] UN[facility] #: [id number] ROOM: 401 DOCTOR: SONI RAZA MD,NINO BIRTHDATE: [birth year] DOS: 05/11/2018 PULMONARY PROGRESS NOTE SUBJECTIVE: The patient noted comfortable at this time, resting on the bed, noted fully awake and alert, towards her baseline mental status. She denies symptoms of fever or chills. Her oral intake was noted sufficient. PHYSICAL EXAMINATION: VITAL SIGNS: Normal temperature, respiratory rate 16, heart rate 97, blood pressure 128/69. Pulse oxygen saturation on 6 liters nasal cannula is 99% saturation. HEENT: Shows head was atraumatic. Eyes nonicterus. NECK: Supple. CARDIOVASCULAR SYSTEM: S1, S2 audible. LUNGS: The patient was noted without any wheezing or crackles at this time. Breaths are noted mild to moderately diminished bilaterally. ABDOMEN: Soft, nontender. Bowel sounds present. EXTREMITIES: Without any acute change. IMPRESSION: The patient with resolving acute exacerbation of chronic obstructive pulmonary disease, acute on chronic hypoxic respiratory failure, acute pneumonia progressively and gradually. Severe debility and muscle decondition as well. PLAN OF TREATMENT: The patient could be discharged to the skilled nurse facility for further continued care. At this time, she has received the maximum benefit from inpatient hospitalization. She was agreeable for that. The patient will continue the current all of the present medical management, other therapies, plan of care and treatment, supportive care, plan of management and therapies. NINO SHAFER MD CM:PNTRANS [id number] NINO RAZA MD 05/11/18 2313 interface
--- NOTE | ~2018-04-30 | PR ---
[place], [place] PROGRESS NOTE NAME: AZAR POTTER UNIT #: [id number] ROOM: 415 DOCTOR: ANGELES ROWEJUNE BIRTHDATE: [birth year] DOS: 05/02/2018 SUBJECTIVE: 05/02/2017. The patient is a 57-year-old female who is being followed for tracheobronchitis. She is currently on Levaquin. She had been bronched and the cultures grew Stenotrophomonas. She is tolerating oral diet well as well as oral medications. Denies any nausea, vomiting or diarrhea. She does have some shortness of breath, especially with any movement. No fevers or chills. No pain currently. LABORATORY DATA: No new labs today. REVIEW OF SYSTEMS: Further review of systems is unremarkable otherwise. PHYSICAL EXAMINATION: VITAL SIGNS: Temperature 97.6, pulse 105, respirations 22, BP 129/92. GENERAL: A 57-year-old female, in no acute distress. HEAD, EYES, EARS, NOSE AND THROAT: Normocephalic. No thrush. LUNGS: Diminished bilaterally throughout. Respirations even and unlabored. HEART: Regular rhythm. No murmur appreciated. ABDOMEN: Soft, nondistended. EXTREMITIES: No edema or deformity. Overall appearance of chronically ill and quite thin. ASSESSMENT: Tracheobronchitis with Stenotrophomonas. PLAN: We will transition the Levaquin IV over to p.o. ADDENDUM: I agree with the assessment and plan made by the nurse practitioner, Nina Potter, on 05/02/2018 at the [id number] encounter. Made the necessary changes in the note. NINA POTTER CNP [place], [place] PROGRESS NOTE NAME: AZAR POTTER UNIT #: [id number] ROOM: 415 DOCTOR: ANGELES ROWEJUNE BIRTHDATE: [birth year] Nika Abdi MD CM:PNTRANS [phone] ANGELES [employer] 05/08/18 1403 interface
--- NOTE | ~2018-04-30 | PR ---
[place], [place] PROGRESS NOTE [id number] #: [id number] ROOM: 401 DOCTOR: DARCIE MULLIGAN MD BIRTHDATE: [birth year] DOS: 05/10/2018 SUBJECTIVE: The patient is short of breath chronically. She has refused hospice consult. OBJECTIVE: VITAL SIGNS: Blood pressure 142/80, heart rate 103 beats per minute, breathing 20 times a minute, temperature 99 degrees Fahrenheit. GENERAL APPEARANCE: Cachexia. Generalized muscle wasting and weakness. The patient is alert and oriented x 3, in no visible distress. HEENT AND NECK: Exam within normal limits. CARDIOVASCULAR SYSTEM: Heart rate is regular in rate and rhythm. S1 and S2 normally audible. LUNGS: Decreased breath sounds all over on lung auscultation. ABDOMEN: Soft, nontender. No obvious organomegaly. Bowel sounds are present. EXTREMITIES: Without significant cyanosis or edema. IMPRESSION: 1. The patient with advanced end-stage chronic obstructive pulmonary disease with acute exacerbation, is being treated. She has poor long-term prognosis, but patient has decided against hospice consult, hospice care at this time. 2. Acute bronchitis with Stenotrophomonas maltophilia growing from sputum, and being treated with antibiotics. 3. T8 compression fracture with chronic back pain and kyphoplasty, being treated and controlled. 4. Advance adult failure to thrive and poor long-term prognosis because of her end-stage lung disease. 5. Chronic constipation and opioid-induced constipation, treated and patient moving bowels with MiraLax. 6. Major depression, recurrent, treated and controlled. 7. Acute pneumonia, being treated with antibiotics. DARCIE MULLIGAN MD CM:PNTRANS [phone] 4 DARCIE MULLIGAN MD 05/11/186 interface
--- NOTE | ~2018-04-30 | PR ---
[place], [place] PROGRESS NOTE NAME: AZAR REYNOSO UNIT #: [id number] ROOM: 401 DOCTOR: NINO CAR MD BIRTHDATE: [birth year] DOS: 05/04/2018 PULMONARY PROGRESS NOTE SUBJECTIVE: The patient is seen and examined on 05/04/2018. She has been comfortably resting and has not been noted in respiratory distress or other problem. She had some problem with nutritional support and she was provided with procalamine. The patient is also taking oral liquids as well as oral nutritional supplements. She has not been noted in respiratory distress and comfortably resting. There are no symptoms of coughing or chest pain reported. Morphine has been given as needed for management of distress or any pain. OBJECTIVE: VITAL SIGNS: Normal temperature, respiratory rate 16, heart rate 73, blood pressure 99/66. Pulse oxygen saturation recorded as 97% saturation on 3 liters nasal cannula. HEENT: No acute change. NECK: Supple. CARDIOVASCULAR: S1 and S2 audible. LUNGS: Noted without any crackles, rhonchi or wheezing. Breaths are noted mildly diminished bilaterally. ABDOMEN: Soft, nontender. Bowel sounds present. EXTREMITIES: No acute change. IMPRESSION: 1. The patient with acute Stenotrophomonas maltophilia infection with acute bronchitis and pneumonia. 2. Stable heofk-xc-eoplsqm hypoxic and hypercapnic respiratory failure. 3. Severe debility. PLAN OF MANAGEMENT: No changes in the plan of care. The patient could be transferred from the ICU to medical floor. Physical therapy, occupational therapy ordered by Dr. Elidia Saleh and that will be continued. Overall prognosis remains guarded. [place], [place] PROGRESS NOTE NAME: AZAR REYNOSO UNIT #: [id number] ROOM: 401 DOCTOR: NINO CAR MD BIRTHDATE: [birth year] NINO SHAFER MD CM:PNTRANS [id number] [id number] NINO RAZA MD 05/18/18 0949 interface
--- NOTE | ~2018-04-30 | PR ---
[place], [place] PROGRESS NOTE [facility]: [facility] [id number] UNIT #: [id number] ROOM: 415 DOCTOR: DRACIE MULLIGAN MD BIRTHDATE: [birth year] DOS: SUBJECTIVE: The patient is still very weak, short of breath, and hypoxemic. PHYSICAL EXAMINATION: VITAL SIGNS: Blood pressure 145/77, heart rate of 89 beats per minute, breathing 17 times per minute, afebrile. GENERAL APPEARANCE: The patient is alert and oriented x 3, in no visible distress. Generalized weakness. HEENT AND NECK: Exam within normal limits. CARDIOVASCULAR SYSTEM: Heart rate is regular in rate and rhythm. S1 and S2 normally audible. LUNGS: Decreased breath sounds all over. ABDOMEN: Soft, nontender. No obvious organomegaly. Bowel sounds are present. EXTREMITIES: Without significant cyanosis or edema. IMPRESSION: 1. Acute over chronic respiratory failure with end-stage lung disease. The patient is on oxygen, requires palliative care, hospice consult if she agrees. 2. Acute respiratory infection with Stenotrophomonas maltophilia being treated. 3. T8 compression fracture with chronic back pains and kyphoplasty pains are being treated and controlled. 4. Advance adult failure to thrive, generalized weakness and poor prognosis. We are taking bedsore and fall precautions. 5. Chronic constipation and opioid-induced constipation, treated and controlled with MiraLax. 6. Major depression, recurrent, being followed and treated. 7. Acute pneumonia, treated with antibiotics. DARCIE MULLIGAN MD CM:PNTRANS [phone] DARCIE MULLIGAN MD 05/09/18 0440 interface
--- NOTE | ~2018-04-30 | PR ---
[place], [place] PROGRESS NOTE NAME: [facility] [id number] UNIT #: [id number] ROOM: 401 DOCTOR: SONI RAZA MD,NINO BIRTHDATE: [birth year] DOS: 05/10/2018 SUBJECTIVE: The patient has been noted with chest congestion. The patient is coughing, expectorating some sputum. Sputum culture was sent today to the lab as well. She was noted awake and alert at this time. She is noted with fair oral intake. OBJECTIVE: VITAL SIGNS: Normal temperature, respiratory rate 20, heart rate 85, blood pressure 138/70. Pulse oxygen saturation recorded as 99-100% saturation on 6 liters nasal cannula. HEENT: Examination shows head was atraumatic. Eyes nonicterus. NECK: Supple. CARDIOVASCULAR: S1, S2 is audible. LUNGS: Noted with moderate decreased breath sounds, scattered expiratory wheezing. No crackles. ABDOMEN: Soft, nontender, bowel sounds present. EXTREMITIES: Without any acute edema. IMPRESSION: The patient has stable respiratory status noted at the present time, acute pneumonia, which has been treated with the antibiotics, resolving acute on chronic hypercapnic hypoxic respiratory failure, and other medical illnesses. PLAN OF MANAGEMENT: No changes in the plan of care at this time from a pulmonary standpoint. Continue current therapy, plan of management, care plan and other treatment and therapies. Usual medical management. Overall, prognosis remains guarded. NINO SHAFER MD CM:PNTRANS [phone] NINO RAZA MD 05/11/18309 interface
--- NOTE | ~2018-04-30 | EKG ---
[place], [place] ELECTROCARDIOGRAM REPORT NAME: AZAR REYNOSO UNIT #: [id number] ROOM: [facility] DOCTOR: CONNER DRAFT REPORT BIRTHDATE: [birth year] [facility] Test Date: 2018-04-30 Test Time: 11:08:35 Pat Name: AZAR REYNOSO Department: Room: [facility] Gender: F Community Services Coordinator: : 1960 Requested By: DIANA MA Order Number: [id number] Reading MD: Vaughn Gibbons MD Measurements Intervals [place] Rate: 86 P: 103 [place]: 128 QRS: 82 QRSD: 72 T: 49 QT: 377 QTc: 451 Interpretive Statements Sinus rhythm Compared to ECG 03/16/2018 11:14:39 Sinus tachycardia no longer present Myocardial infarct finding no longer present Electronically Signed On 05-01-2018 5:53:39 PST by Vaughn Gibbons MD CM:EKGRPT:ELECTROCARDIOGRAM REPORT [id number] DIANA PRIETO DRAFT REPORT DIANA MORGAN
--- NOTE | ~2018-04-30 | PR ---
[place], [place] PROGRESS NOTE NAME: AZAR REYNOSO UNIT #: [id number] ROOM: 401 DOCTOR: SONI RAZA MD,NINO BIRTHDATE: [birth year] DOS: 05/24/2018 PULMONARY PROGRESS NOTE ADDENDUM PHYSICAL EXAMINATION: EXTREMITIES: No edema, clubbing or cyanosis. LABORATORY DATA: CBC that was done this morning was noted with hemoglobin of 7.6, hematocrit 27.8, WBC count 14.8. IMPRESSION: 1. Acute tracheobronchitis with acute pneumonia with gram-negative infection, currently considered and will be treated. The patient will be continued on the Levaquin. 2. The patient with respiratory failure as well treated with the BiPAP and oxygen supplementation. 3. Severe debility remains persistent with other medical illnesses. PLAN OF MANAGEMENT: Continuation of the bronchodilators, oxygen supplementation. Monitoring the anemia. No changes in treatment will be needed today. Supportive care, other therapy, plan of management. NINO SHAFER MD CM:PNTRANS [phone] NINO RAZA MD 05/26/18 1227 MELITON [email or web address]
--- NOTE | ~2018-04-30 | PR ---
[place], [place] PROGRESS NOTE NAME: AZAR REYNOSO UNIT #: [id number] ROOM: 401 DOCTOR: DARCIE MULLIGAN MD BIRTHDATE: [birth year] DOS: 05/23/2018 SUBJECTIVE: The patient with pneumonia and leukocytosis with acute respiratory failure, feeling slightly better. OBJECTIVE: GENERAL APPEARANCE: Cachexia, generalized weakness and muscle wasting with decreased breath sounds all over with expiratory wheezing. VITAL SIGNS: Blood pressure 130/72, heart rate of 97 beats per minute, breathing 20 times per minute, temperature afebrile. HEENT AND NECK: Exam within normal limits. CARDIOVASCULAR SYSTEM: Heart rate is regular in rate and rhythm. S1 and S2 normally audible. LUNGS: Clear to auscultation. ABDOMEN: Soft, nontender. No obvious organomegaly. Bowel sounds are present. EXTREMITIES: Without significant cyanosis or edema. IMPRESSION: 1. Acute over chronic respiratory failure, being treated with bronchodilators, oxygen, nebulizer treatments. The patient is stabilizing. 2. Acute exacerbation of chronic obstructive pulmonary disease, being treated. 3. Pneumonia. Sputum cultures ordered. The patient is being treated with antibiotics. 4. Severe adult failure to thrive, generalized weakness and fatigue with poor long-term prognosis. I have recommended hospice care to the patient in the past. 5. Chronic constipation, treated with opioid and opioid-induced constipation, treated with laxatives. The patient is moving bowels. 6. T8 compression fracture and back pains, status post kyphoplasty. The patient on pain control. 7. History of deep venous thrombosis. The patient anticoagulated with Xarelto. 8. Advance disability and ambulatory dysfunction. The patient was started on physical therapy. 9. Cachexia and malnutrition. The patient to be followed by Dietary. [place], [place] PROGRESS NOTE NAME: AZAR REYNOOS UNIT #: [id number] ROOM: 401 DOCTOR: DARCIE MULLIGAN MD BIRTHDATE: [birth year] DARCIE MULLIGAN MD CM:PNTRANS [id number] DARCIE MULLIGAN MD 05/26/18 1227 MELITON [email or web address]
--- NOTE | ~2018-04-30 | PR ---
[place], [place] PROGRESS NOTE [id number] UNIT #: [id number] ROOM: 415 DOCTOR: DARCIE MULLIGAN MD BIRTHDATE: [birth year] DOS: 05/07/2018 SUBJECTIVE: The patient continues to be very weak and short of breath. PHYSICAL EXAMINATION: VITAL SIGNS: Blood pressure 156/89, afebrile, heart rate of 100 beats per minute. LUNGS: Decreased breath sounds all over. IMPRESSION: 1. Advanced adult failure to thrive and poor prognosis from chronic respiratory failure. 2. Acute over chronic respiratory failure with severe underlying end-stage chronic obstructive pulmonary disease. Her prognosis remains poor. The patient grew Stenotrophomonas maltophilia from the sputum cultures, which are being treated with antibiotics. 3. T8 compression fracture, status post kyphoplasty and chronic back pains, treated and controlled. 4. Advanced adult failure to thrive and generalized weakness. The patient working with physical therapy. 5. Chronic constipation and opioid-induced constipation, treated and controlled with MiraLax. 6. Major depression, recurrent, being monitored and treated. 7. Acute pneumonia, treated with antibiotics. DARCIE MULLIGAN MD CM:PNTRANS [id number] DARCIE MULLIGAN MD 05/08/18 1021 interface
--- NOTE | ~2018-04-30 | PR ---
[place], [place] PROGRESS NOTE [id number] UN[facility] #: [id number] ROOM: 415 DOCTOR: SONI RAZA MD,NINO BIRTHDATE: [birth year] DOS: 05/07/2018 SUBJECTIVE: The patient noted comfortable at this time without any acute distress this morning. At this time reported any symptoms of chest pain, fever, or chills. The patient appeared to be comfortable at this time as well. Denies symptoms of hemoptysis. She has been reported some cough. Mild shortness breath was still noted at times with exertion and anxiety as well. OBJECTIVE: VITAL SIGNS: For the patient which has been recorded showed normal temperature, respiratory rate of 24-18, heart rate 68, blood pressure 178/68. The pulse oxygen saturation was recorded as 100% on 6 liters nasal canula BiPAP 94%, saturation. HEENT: Examination shows head was atraumatic. Eyes nonicterus. NECK: Supple. CARDIOVASCULAR: S1, S2 is audible. LUNGS: The patient without any wheeze or crackles at present time. Breaths are noted mildly diminished bilaterally. ABDOMEN: Soft, nontender. Bowel sounds are present. EXTREMITIES: The patient has no acute edema. IMPRESSION: 1. The patient with end-stage chronic obstructive pulmonary disease with acute exacerbation of chronic obstructive pulmonary disease with acute pneumonia. The patient shows stenotrophomonas maltophilia. 2. Multilevel compression fracture of thoracic spine. 3. Severe debility as well. PLAN OF TREATMENT: Continue current plan of management, morphine sulphate, use of the BiPAP, oxygen supplementation, antibiotics, and the steroids, which has been decreased yesterday. NINO SHAFER MD CM:PNTRANS [phone] NINO RAZA MD 05/07/18 1411 interface
--- NOTE | ~2018-04-30 | PR ---
[place], [place] PROGRESS NOTE [id number] UNIT #: [id number] ROOM: 415 DOCTOR: SONI RAZA MD,NINO BIRTHDATE: [birth year] DOS: 05/08/2018 PULMONARY PROGRESS NOTE SUBJECTIVE: The patient has been noted severely weak and debilitated, resting however comfortably on the bed. She remains awake and alert, using oxygen and BiPAP intermittently. There were no symptoms of fever or chills reported by the patient. The cough has been noted moderate at this time. OBJECTIVE: VITAL SIGNS: Normal temperature, respiratory rate 18, heart rate of 88, blood pressure 152/74. Pulse oxygen saturation was recorded as 98% saturation on 6 liters nasal canula. HEENT: Shows head was atraumatic, eyes nonicterus. NECK: Supple. CARDIOVASCULAR: S1 and S2 audible. LUNGS: The patient is without any wheeze or crackles at the present time. ABDOMEN: Soft, nontender. Bowel sounds present. EXTREMITIES: No new change. LABORATORY DATA: CBC today, WBC elevated at 20.8, hemoglobin and hematocrit normal, platelet count was normal. BMP that was done on 05/08/2018 with BUN 25, creatinine normal, CO2 36. IMPRESSION: The patient has been currently noted with Stenotrophomonas maltophilia tracheobronchitis and pneumonia with acute on chronic hypoxic hypercapnic respiratory failure. Severe debility remains persistent. PLAN OF MANAGEMENT: No changes in the plan of care of the patient at this time. Continuation of all other therapy and plan of management as well. Usual care. Supportive plan of management and treatments. Her prognosis remains guarded. NINO SHAFER MD CM:PNTRANS [phone] NINO RAZA MD 05/09/18116 interface
--- NOTE | ~2018-04-30 | PR ---
[place], [place] PROGRESS NOTE NAME: AZAR REYNOSO UNIT #: [id number] ROOM: 401 DOCTOR: SONI RAZA MD,NINO BIRTHDATE: [birth year] DOS: 05/09/2018 SUBJECTIVE: The patient was noted comfortable at this time without any acute distress, resting, complaining of shortness of breath sometime at rest. Denies symptoms of chest pain. The coughing has been noted stable. There are symptoms of fever or chills reported. OBJECTIVE: VITAL SIGNS: Normal temperature, respiratory rate 24, heart rate 103, and blood pressure 151/89. The pulse ox saturation on 6 liters nasal cannula 100% saturation. HEENT: Showed no acute change. NECK: Supple. CARDIOVASCULAR: S1, S2 audible. LUNGS: No wheeze or crackles at the present time. ABDOMEN: Soft and nontender. Bowel sounds present. EXTREMITIES: No acute change. LABORATORY DATA: CBC today: WBC count decreased to 15,000, hemoglobin 9.3. The platelet count was normal. CMP of the patient noted normal BUN and creatinine. CO2 of 39. IMPRESSION: Stable respiratory status, resolving acute pneumonia, Stenotrophomonas maltophilia with acute on chronic hypercapnic hypoxic respiratory failure, severe debility and muscle decondition persisted. PLAN OF MANAGEMENT: Continue the BiPAP, oxygen supplementation, other plan of therapy care for the patient is in progress. Usual care. NINO SHAFER MD CM:PNTRANS 1011 10 NINO RAZA MD 05/09/182010 interface
--- NOTE | ~2018-04-30 | PR ---
[place], [place] PROGRESS NOTE NAME: AZAR REYNOSO UNIT #: [id number] ROOM: [facility] DOCTOR: GENEVA MCKNIGHT MD BIRTHDATE: [birth year] DOS: 05/03/2018 SUBJECTIVE: The patient looks a little bit better than yesterday. She feels a little stronger. OBJECTIVE: VITAL SIGNS: Blood pressure is 143/76, pulse of 74, respirations 20, temperature 98.1. LUNGS: Diminished breath sounds. HEART: Regular. ABDOMEN: Soft, scaphoid. EXTREMITIES: Without any edema. ASSESSMENT AND PLAN: 1. Acute tracheobronchitis with Stenotrophomonas. 2. Protein-calorie malnutrition. The patient is not a candidate for any interventions. Continue Ensure and procalamine. 3. End-stage chronic obstructive pulmonary disease, on maximal treatment plan. 4. Spastic paresis, overall poor prognosis. Continue supportive symptomatic care. Awaiting possible placement back to the longterm once the patient is a little bit more stable. GENEVA MCKNIGHT MD CM:PNTRANS [phone] GENEVA MCKNIGHT MD 05/03/18 1533 interface
--- NOTE | ~2018-04-30 | PR ---
[place], [place] PROGRESS NOTE [id number] UN[facility] #: [id number] ROOM: 415 DOCTOR: DARCIE MULLIGAN MD BIRTHDATE: [birth year] DOS: 05/05/2018 SUBJECTIVE: The patient is feeling very weak, somewhat short of breath. PHYSICAL EXAMINATION: VITAL SIGNS: Blood pressure 135/64, heart rate of 109 beats per minute, breathing 18 times per minute, afebrile, pulse ox at 96% with oxygen. GENERAL APPEARANCE: The patient is alert and oriented x 3, in no visible distress. HEENT AND NECK: Exam within normal limits. CARDIOVASCULAR SYSTEM: Heart rate is regular in rate and rhythm. S1 and S2 normally audible. LUNGS: Decreased breath sounds all over on lung auscultation. ABDOMEN: Soft, nontender. No obvious organomegaly. Bowel sounds are present. EXTREMITIES: Without significant cyanosis or edema. CENTRAL NERVOUS SYSTEM: Generalized weakness, muscle wasting and cachexia. IMPRESSION: 1. The patient with acute exacerbation of end-stage chronic obstructive pulmonary disease with acute over chronic respiratory failure, continues to improve slowly, but because of her end-stage lung disease, she has a poor long-term prognosis and she now maintains a DNR arrest code status with no intubation and mechanical ventilation. The patient is being treated with Levaquin and being followed by Infectious Disease specialist, Dr. Abdi. 2. Advance adult failure to thrive and ambulatory dysfunction. The patient working with physical therapy. 3. Sputum cultures positive for Stenotrophomonas maltophilia being treated. 4. Chronic constipation and opioid-induced constipation, treated with MiraLax. 5. Chronic back pains with T8 compression fracture treated with kyphoplasty and now with opioids. 6. Major depression, recurrent, [id number] treated and being followed. DARCIE MULLIGAN MD CM:PNTRANS [id number] DARCIE MULLIGAN MD 05/06/18 0532 interface
--- NOTE | ~2018-04-30 | PR ---
[place], [place] PROGRESS NOTE [id number] UNIT #: [id number] ROOM: [facility]- DOCTOR: GENEVA MCKNIGHT MD BIRTHDATE: [birth year] DOS: SUBJECTIVE: The patient is doing poorly without any new complaints, but has had headaches since admission. She continues to do poorly with continued worsening of the shortness of breath. OBJECTIVE: VITAL SIGNS: Graphic trend shows a pressure of 112/60, pulse of 110, respirations 22, temperature 98.3. LUNGS: Diminished breath sounds, very poor respiratory effort. HEART: Regular. ABDOMEN: Soft, scaphoid. EXTREMITIES: Without any edema. ASSESSMENT AND PLAN: 1. Severe protein-calorie malnutrition. Continue Ensure supplements. The patient is unable to sit up to eat because of the overall adult failure to thrive. So the patient's family requested the tube feeding, but the patient is refusing it and she also may not be a good candidate for a termite treater PEG tube placement. She may not be able to even survive anesthesia right now. 2. End-stage chronic obstructive pulmonary disease, extremely poor prognosis, complicated by the malnutrition, on BiPAP. Dr. Gibbons is following. 3. 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 Continue supportive care. The patient has requested that she be made DNRCC arrest. 4. Headaches. She is already on Topamax, pain medication, morphine has been ordered. Toradol was given for acute cephalgia, most likely migraine related. GENEVA MCKNIGHT MD CM:PNTRANS 0856 1623 GENEVA MCKNIGHT MD 05/02/18 1623 interface
--- NOTE | ~2018-04-30 | PR ---
[place], [place] PROGRESS NOTE NAME: AZAR REYNOSO UNIT #: [id number] ROOM: [facility] DOCTOR: SONI RAZA MD,NINO BIRTHDATE: [birth year] DOS: 05/03/2018 SUBJECTIVE: The patient appeared to be comfortable at this time, resting in the bed. She has not been noted excessive chest congestion. Continue antibiotic as well as the Levaquin. Denies symptoms of fever or chills. She has used the BiPAP at times. Denies symptoms of nausea, vomiting, diarrhea or any abdominal pain. Denies symptoms of hemoptysis, fever or chills. Denies symptoms of nausea or vomiting. Her oral intake is still limited. She was started on procalamine yesterday as well. The remaining systems were reviewed, they were noted all negative. PHYSICAL EXAMINATION: VITAL SIGNS: For the patient which has been recorded showed the temperature remains normal, respiratory rate of 15, heart rate 87, blood pressure 131/82. Pulse oxygen saturation recorded on 5 liters nasal cannula 97% saturation. HEENT: Head was atraumatic. Eyes nonicterus. NECK: Supple. CARDIOVASCULAR: S1, S2 is audible. LUNGS: The patient was noted without any crackles, rhonchi, or wheezing. ABDOMEN: Soft, nontender. Bowel sounds present. EXTREMITIES: The patient was noted without any acute edema. MUSCULOSKELETAL: The patient was noted with kyphosis of the spine. VISIBLE SKIN: No lesions or rashes. CENTRAL NERVOUS SYSTEM: General weakness and fatigue were still noted. IMPRESSION: 1. The patient who has been currently noted with acute pneumonia with Stenotrophomonas maltophilia. 2. Acute respiratory failure, chronic respiratory failure as well. 3. Severe debility. 4. Severe cachexia. 5. Muscle decondition and to be related to current acute illness. 6. Multilevel compression fracture of the spine, acute fracture noted one of the thoracic vertebral bone. 7. Chest pain related to that. PLAN OF MANAGEMENT: Continue morphine sulfate, continue antibiotic combination at this time. Bronchodilator. Other therapy, plan of management, care plan and other treatment. Additional treatment changes will be made based on progression of the illness. Usual care. Supportive plan of management and other therapies. [place], [place] PROGRESS NOTE NAME: AZAR REYNOSO UNIT #: [id number] ROOM: [facility] DOCTOR: NINO CAR MD BIRTHDATE: [birth year] NINO SHAFER MD CM:PNTRANS [phone] NINO RAZA MD 05/03/18 1508 interface
--- NOTE | ~2018-04-30 | PR ---
[place], [place] PROGRESS NOTE [id number] UNIT #: [id number] ROOM: 415 DOCTOR: DARCIE MULLIGAN MD BIRTHDATE: [birth year] DOS: 05/06/2018 SUBJECTIVE: The patient is still quite weak, somewhat short of breath, but improving slowly. OBJECTIVE: GENERAL APPEARANCE: The patient is alert and oriented x 3, in no visible distress. Generalized weakness, cachexia and muscle wasting. VITAL SIGNS: Blood pressure 140/77, heart rate of 98 beats per minute, breathing 19 times per minute, temperature 98.4 degrees Fahrenheit. HEENT AND NECK: Exam within normal limits. CARDIOVASCULAR SYSTEM: Heart rate is regular in rate and rhythm. S1 and S2 normally audible. LUNGS: Decreased breath sounds all over. The patient remains on BiPAP. ABDOMEN: Soft, nontender. No obvious organomegaly. Bowel sounds are present. EXTREMITIES: Without significant cyanosis or edema. IMPRESSION: 1. Acute over chronic respiratory failure, being treated with BiPAP. 2. Acute pneumonia with Stenotrophomonas maltophilia, being treated with antibiotics. 3. T8 compression fracture of the back, treated with kyphoplasty and chronic pains, being treated with medications. 4. Major depression, recurrent, mild to moderate, being treated and followed. 5. Chronic constipation and opioid-induced constipation, being treated with MiraLax. 6. Advanced adult failure to thrive and ambulatory dysfunction. The patient is working with physical therapy. 7. End-stage lung disease with advanced chronic obstructive pulmonary disease and chronic respiratory failure. DARCIE MULLIGAN MD CM:PNTRANS 1822 1143 DARCIE MULLIGAN MD 05/07/18 1144 interface
--- NOTE | ~2018-04-30 | DS ---
[place], [place] DISCHARGE SUMMARY [id number] UNIT #: [id number] ROOM: 401 DOCTOR: DARCIE MULLIGAN MD BIRTHDATE: [birth year] DOS: 05/11/2018 DISCHARGE DIAGNOSES: 1. Acute over chronic hypoxemic and hypercapnic respiratory failure. 2. End-stage lung disease and poor long-term prognosis. The patient recommended hospice. 3. Acute pneumonia, treated with antibiotics. 4. Major depression, recurrent, moderate. 5. Chronic constipation, opioid-induced constipation. 6. Advanced adult failure to thrive. 7. T8 compression fracture, status post kyphoplasty. 8. Acute bronchitis with sputum cultures positive for Stenotrophomonas maltophilia. 9. Advanced end-stage chronic obstructive pulmonary disease. 10. Postmenopausal osteoporosis. 11. History of deep venous thrombosis and anticoagulation with Xarelto. 12. Generalized severe anxiety disorder. 13. Benign essential hypertension. 14. Gastroesophageal reflux disease and esophagitis. 15. Migraine type headaches. 16. Restless leg syndrome. 17. The patient presented to [facility] in acute over chronic respiratory failure with shortness of breath, wheezing, and was hypoxemic. Pulse ox was dropping, and she was getting tired of breathing and after admission, the patient was kept on BiPAP. Later on, as the patient improved, she decided against intubation and mechanical ventilation and decided to be a DNR rest code status. I had a good discussion with the patient regarding hospice and hospice saw her, but she decided against hospice consult. The patient was continued on BiPAP, breathing treatments, antibiotic and oxygen. 18. The patient with pneumonia, treated with antibiotics and was followed by Dr. Gibbons, the test engineer nuclear equipment. 19. Dvua-dn-vbniicnz protein-calorie malnutrition. The patient followed by Dietary. 20. Malnutrition, cachexia advance adult failure to thrive. 21. Ambulatory dysfunction. The patient worked with physical therapy. 22. Benign essential hypertension. Blood pressure being monitored and treated. 23. Chronic constipation and opioid-induced constipation, treated, and the patient moving bowels with MiraLax. 24. Postmenopausal osteoporosis, treated with Fosamax, calcium, and vitamin D. Sputum cultures growing Stenotrophomonas maltophilia treated with antibiotics. Repeated sputum cultures are negative. White cell count elevated at 26,000 secondary to corticosteroids. No diarrhea. The patient is feeling better and wanting to go back to [facility]. Urine cultures grew Enterococcus faecium being treated with linezolid. DISCHARGE MANAGEMENT: Linezolid 600 mg b.i.d. for a week, apixaban 5 mg b.i.d., prednisone 20 mg b.i.d. for 5 days, diltiazem 60 mg b.i.d., Tylenol 1000 mg every 8 hours, omeprazole 20 mg daily, Topamax 50 mg a day, Zoloft 50 mg a day, ropinirole 0.25 mg daily at bedtime, potassium chloride 20 mEq daily, and [place], [place] DISCHARGE SUMMARY NAME: AZAR REYNOSO UNIT #: [id number] ROOM: [facility] DOCTOR: DARCIE MULLIGAN MD BIRTHDATE: [birth year] MiraLax 17 g daily. DARCIE MULLIGAN MD CM:[id number] DARCIE MULLIGAN MD 05/11/18 4051 interface
[~2018-04-30 10:19] MED LIST changes: -ACETAMINOPHEN500 M4 PO; -HALOPERIDOL5 MG/1 M1 IV; -IBU800 M2 PO; -MEDROL DOSEPAK4 MG PO; -MILK OF MA400 MG/51 PO; -ZOLOFT50 MG PO
[2018-04-30 11:13] LABS: HEMATOCRIT 38.4 % (37.0-47.0); HEMOGLOBIN 11.2 g/dl (12.0-16.0); MEAN CELL VOLUME 94.6 fl (81.0-99.0); MEAN CORPUSCULAR HGB 27.6 pg (27.0-31.0); MEAN CORPUSCULAR HGB CONC 29.2 g/dl (33.0-37.0); MEAN PLATELET VOLUME 10.1 fl (9.6-12.3); PLATELET COUNT AUTOMATED 283 10*3/uL (130-400); RED BLOOD COUNT 4.06 10*6/uL (4.10-5.10); RED CELL DISTRI WIDTH 17.6 % (0-14.5); WHITE BLOOD COUNT 14.6 10*3/uL (4.8-10.8)
[2018-04-30 11:21] LABS: ACT PARTIAL THROMBO TIME 18.7 SECONDS (20.8-31.5)
[2018-04-30 11:28] LABS: ALKALINE PHOSPHATASE 69 U/L (45-117); BUN 32 mg/dl (7-24); CHLORIDE 100 mmol/L (98-107); CREATININE 0.51 mg/dL (0.55-1.02); LIPASE 184 U/L (73-393); POTASSIUM 4.2 mmol/L (3.5-5.1); SGOT/AST 27 IU/L (3-35); SGPT/ALT 42 U/L (12-78); SODIUM 141 mmol/L (136-145); TOTAL PROTEIN 6.6 gm/dL (6.4-8.2); TROPONIN I 0.038 ng/ml (<0.045)
[2018-04-30 11:41] LABS: PLATELET SUFFICIENCY NORMAL (NORMAL); TOTAL CELLS COUNTED 100 #CELLS
[2018-04-30 11:42] LABS: STOMATOCYTE FEW
--- NOTE | 2018-04-30 14:41 | NUR ---
PT SLEEPING AT THIS TIME MONITOR SHOWING SINUS RHYTHM, IV INFUSING . O2 AT 10 LITERS. FAMILY AT BEDSIDE. MEGA KAPOOR RN.
--- NOTE | 2018-04-30 15:47 | NUR ---
A 57, admitted to [facility], under the services of Dr. ISAAK STEVENS,DARCIE Resendez with a diagnosis of SEPSIS AND PNEUMONIA. Chief complaint is SHORTNESS OF BREATH. Patient arrived via stretcher from ER. Monitor applied. Initial assessment completed. Vital signs taken and recorded. DR. ISAAK STEVENS,DARCIE Resendez notified of admission to the unit. Orders received. See assessment for past medical history, medications and allergies. Patient and/or family oriented to unit. [facility] visitation policy reviewed. Clothing/patient valuable form completed. ULISES [place]
[2018-04-30] MEDS ORDERED: MILK OF MA400 MG/51 PO (16:31)
[2018-04-30] MEDS ORDERED: SOLU-MEDRO40 MG/1 ML IV (16:35)
[2018-04-30] MEDS ORDERED: XANAX0.5 MG PO (16:37)
[2018-04-30] MEDS ORDERED: ZOLOFT50 MG PO (16:38)
--- NOTE | 2018-04-30 16:57 | NUR ---
NOTIFIED OF NEW CONSULT ORDER.
--- NOTE | 2018-04-30 19:27 | NUR ---
DR MULLIGAN IS HERE TO SEE PT.
--- NOTE | 2018-04-30 19:30 | NUR ---
PT LAYING ON HER LT SIDE, EYES CLOSED, BODY RELAXED, PULSE OX 99% ON NC 6L, RR 20/MIN.
[2018-05-01] VITALS: BP 137/78
--- NOTE | 2018-05-01 00:35 | NUR ---
NORCO GIVEN FOR "ALL OVER" HEADACHE 10/24 AT 2215 EFFECTIVE PER PT.
[2018-05-01 04:00] VITALS: BP 126/69
[2018-05-01 08:00] VITALS: BP 132/71
--- NOTE | 2018-05-01 08:00 | NUR ---
AWAKE, ALERT AND ORIENTED X3 UP TO BSC, DESATS WITH ANY ACTIVITY TO 87-86, BUT RECOVERS WITH REST, REMAINS ON NC6L, VERY POOR APPETITE, IV SITES SECURE
--- NOTE | 2018-05-01 10:20 | NUR ---
UP TO BSC WITH ASSIST, PT BECOMES VISABLE SOB WITH ACTIVITY
--- NOTE | 2018-05-01 11:40 | NUR ---
C/O HEADACHE OF 11/24. REQUESTED NORCO. GIVEN AT THIS TIME. WILL CONT TO MONITOR. CALL LIGHT IN REACH.
[2018-05-01 12:00] VITALS: BP 148/77
--- NOTE | 2018-05-01 12:00 | NUR ---
Tobacco Sprayer in to see patient. She is currently short term at [facility] and would like to return there upon discharge. [facility] home health following.
--- NOTE | 2018-05-01 13:24 | NUR ---
XANAX AND NORCO GIVEN EARLY AND HAVE BEEN EFFECTIVE
[2018-05-01 16:00] VITALS: BP 119/64
--- NOTE | 2018-05-01 17:00 | NUR ---
PICC LINE REMOVED, INTACT AT 44CM PRESSURE DRSG APPLIED, NO BLEEDING AT SITE
--- NOTE | 2018-05-01 17:48 | NUR ---
UP TO BSC, DESATED TO 52, RESOLVED WITH REST AND PLACEMENT OF BIPAP MORPHINE FOR AN UNBEARABLE HEADACHE
--- NOTE | 2018-05-01 18:00 | NUR ---
PLACED ON BIPAP
--- NOTE | 2018-05-01 18:15 | NUR ---
IV MORPHINE FOR UNBEARABLE HEADACHE HAS BEEN EFFECTIVE, PT ON BIPAP AND SLEEPING RESTFULLY
--- NOTE | 2018-05-01 18:28 | NUR ---
PT PLACED ON BIPAP FOR DECREASE IN SPO2 OF 57% PER RN. 16/10, 8, 45%
[2018-05-01 20:00] VITALS: BP 109/65
--- NOTE | 2018-05-01 20:55 | NUR ---
FAMILY QUESTIONING TO IF PT NEEDS A FEEDING TUBE PLACED, THEY WILL TALK WITH DOCTORS IN AM
--- NOTE | 2018-05-01 21:56 | NUR ---
OFF BIPAP FOR A BREAK AND FLUIDS, MEDS GIVEN, XANAX GIVN=EN FOR ANXIETY
--- NOTE | 2018-05-01 23:40 | NUR ---
C/O HEADACHE OF 11/24. GIVEN NORCO AT THIS TIME PER HER REQUEST. WILL CONT TO MONITOR. CALL LIGHT IN REACH.
[2018-05-02] VITALS: BP 109/65
--- NOTE | 2018-05-02 00:30 | NUR ---
PT PLACED ON BI-PAP AT THIS TIME.
--- NOTE | 2018-05-02 00:40 | NUR ---
NORCO EFF. PT RESTING QUIETLY
[2018-05-02 04:00] VITALS: BP 109/65; BP 110/66
--- NOTE | 2018-05-02 05:04 | NUR ---
RESTING QUIETLY AT THIS TIME. NO SIGNS OF DISTRESS. WILL CONT TO MONITOR. CALL LIGHT IN REACH.
[2018-05-02 08:00] VITALS: BP 112/60
--- NOTE | 2018-05-02 08:00 | NUR ---
DR MCKNIGHT IN TO SEE PT, ADVISED OF PTS POOR APPETITE, PT OFF BIPAP AND DOING WELL LONG SHE HAS A LOW ACTIVITY LEVEL SHE CONTINUES TO NOT TOLERATE ANY ACTIVITY, TORADOL GIVEN FOR OVERALL JOINT PAIN AND HAS BEEN EFFECTIVE
[2018-05-02 12:00] VITALS: BP 116/62
--- NOTE | 2018-05-02 13:32 | NUR ---
MORPHINE GIVEN AFTER BATH AND PT PLACED BACK ON BIPAP
[2018-05-02 16:00] VITALS: BP 129/92
--- NOTE | 2018-05-02 18:52 | NUR ---
CHART CHECK COMPLETE.
[2018-05-02 20:00] VITALS: BP 115/65
--- NOTE | 2018-05-02 23:03 | NUR ---
PT WITHOUT DISTRESS. DECLINING BIPAP AT THIS TIME.
[2018-05-03] VITALS: BP 118/60
--- NOTE | 2018-05-03 00:49 | NUR ---
ASSISTED PT UP TO BSC TO VOID....VERY SOB AND RETURNED TO BED. MEDICATED WITH MORPHINE PER PT REQUEST FOR HEADACHE AND PT PLACED ON BIPAP ORDERED PER PT REQUEST. PULSE OX POST ACTIVITY 98%.
--- NOTE | 2018-05-03 03:20 | NUR ---
MORPHINE WAS EFFECTIVE...PT DOZING. BIPAP IN USE. BODY RELAXED.
[2018-05-03 04:00] VITALS: BP 143/76
--- NOTE | 2018-05-03 06:14 | NUR ---
NORCO FOR RECURRING HEADACHE, PER PT REQUEST, EFFECTIVE. PT DOZING, BODY RELAXED.
[2018-05-03 12:00] VITALS: BP 131/82
--- NOTE | 2018-05-03 12:54 | NUR ---
MIRALAX FOR NO BM X2 DAYS
--- NOTE | 2018-05-03 14:47 | NUR ---
XANAX AND PAIN PILL PER REQUEST
[2018-05-03 15:11] VITALS: BP 128/78
--- NOTE | 2018-05-03 16:06 | NUR ---
UP TO BSC FOR 500CC MATA URINE, PT REQUESTED TO GO BACK ON BIPAP WHEN DONE, XANAX AND NORCO HAVE BEEN EFFECTIVE
[2018-05-03 20:00] VITALS: BP 103/56
[2018-05-04] VITALS: BP 117/66
[2018-05-04 04:00] VITALS: BP 99/56
[2018-05-04 08:00] VITALS: BP 90/63
--- NOTE | 2018-05-04 08:00 | NUR ---
DR MCKNIGHT IN TO SEE PT. UPDATED HER ON PT'S CASE.
--- NOTE | 2018-05-04 10:25 | NUR ---
MEDICATED PT PER PRN ORDER WITH MORPHINE FOR C/O PAIN TO KNEES AND TYLER. PT RATES PAIN 7/10 ON PAIN SCALE.
--- NOTE | 2018-05-04 10:30 | NUR ---
Communications Professional in to see patient. She is currently short term at [facility] and would like to return there upon discharge. systems planner following.
--- NOTE | 2018-05-04 10:45 | NUR ---
PT RESTING. EARLIER MORPHINE EFFECTIVE.
[2018-05-04 12:00] VITALS: BP 118/61
--- NOTE | 2018-05-04 12:24 | NUR ---
PT'S FAMILY VISITNG.
--- NOTE | 2018-05-04 13:23 | NUR ---
Occupational Therapy evaluation completed in [facility] with full eval to follow. Precautions include contracture risk, skin risk,frail, O2 use, IV UE. Patient is high complexity level 84089 via chart review, testing and evaluation. Recommend OT per POC and return to SNF upon d/c. Thank you for this referral. Margo Okeefe OTR/l
--- NOTE | 2018-05-04 13:59 | NUR ---
PHYSICAL THERAPY PAtient evaluated on IN iccu, full evaluation to follow. Continue with PT as per plan of care with fall, 02, desats WITH MIN EXERTION, MOD (a), POOR ACTIVITY TOLERANCE and alarm precautions. Will require SNF. PAtient is high complexity via chart review, tests and evaluation: 57513. Thank you for this referral. Lashaun Winston,PT
--- NOTE | 2018-05-04 15:05 | NUR ---
MEDICATED PT PER PRN ORDER WITH NORCO FOR C/O LEFT KNEE PAIN. PT RATES PAIN 8/10 ON PAIN SCALE.
--- NOTE | 2018-05-04 15:28 | NUR ---
PT'S DAUGHTER,EDUARDA, NOTIFIED OF PT'S TRANSFER TO [facility].
--- NOTE | 2018-05-04 15:52 | NUR ---
PT TRANSFERED TO [facility] VIA BED. PT REPORT GIVEN TO RECEIVING PA AND RN.
--- NOTE | 2018-05-04 15:53 | NUR ---
PT STATES SOME RELIEF OF KNEE PAIN WITH EARLIER NORCO.
[2018-05-04 16:00] VITALS: BP 133/60
--- NOTE | 2018-05-04 16:02 | NUR ---
received patient from iccu. pt in bed lying on left side, no needs stated at this time. iv infusing without difficulty into left arm. oxygen nc at 6 liters
[2018-05-04 20:00] VITALS: BP 131/68
[2018-05-05] VITALS: BP 140/79
--- NOTE | 2018-05-05 00:31 | NUR ---
PATIENT AT THIS TIME REFUSING BIPAP. STATES SHE JUST WANTS HER OXYGEN ON FOR THE REST OF THE NIGHT. PATIENT HAD BIPAP ON FOR 2 1/2 HOURS, 6L NC REAPPLIED. PATIENT AT THIS TIME DENIES ANY NEEDS, CALL LIGHT WITHIN REACH, BARTOLOME CALABRESE
--- NOTE | 2018-05-05 02:16 | NUR ---
24 HR chart check completed.
[2018-05-05 03:07] LABS: ADENOVIRUS Negative (Negative); INFLUENZA A Negative (Negative); INFLUENZA B Negative (Negative); METAPNEUMOVIRUS Negative (Negative); PARAINFLUENZA 1 Negative (Negative); PARAINFLUENZA 2 Negative (Negative); PARAINFLUENZA 3 Negative (Negative); RHINOVIRUS Negative (Negative); RSV A Negative (Negative); RSV B Positive (Negative)
--- NOTE | 2018-05-05 07:20 | NUR ---
Patient comes from [facility]; Updated clinicals faxed to [facility], notified facility patient will need a bipap upon return, order faxed. Patient is ok to return when medically stable for discharge.
--- NOTE | 2018-05-05 09:00 | NUR ---
Clerical Assigner in to see patient. She is currently short term at [facility] and would like to return there upon discharge. case planner following.
--- NOTE | 2018-05-05 09:05 | NUR ---
pt requested xanax and norco at this time for anxiety and generalized pain 10/24, see mar. given. will monitor for effectiveness
--- NOTE | 2018-05-05 09:30 | NUR ---
OT NOTE Pt was seen this A.M. 1:1 for 15 minute OT session. Upon arrival pt was supine in bed. Pt identified by name and and had complaints of feeling weak, fatigued, and SOB (SpO2 96% and heart rate 98 bpm). Pt presented to therapy with continous 6L-O2 via NC which she remained on throughout entire session. Pt transferred supine to sit EOB with modA X 2. While sitting EOB pt had one LOB to the R that required modA to correct. Attempted to have pt correct her posture to improve breathing and avoid becoming SOB, however pt was unable due to kyphotic posture. Pt was able to tolerate aprox 1 minute and 30 seconds of sitting upright on the EOB before requesting to lay doen due to fatigue. Within that 1 minute and 30 seconds pt's SpO2 dropped to 86% and heart rate raised to 111 bpm. Pt transferred back into bed sit to supine with modA X 2. There she was left with call light in hand, tray table in place, and bed alarm activated for safety. Continue with rec D/C plan to SNF. TUNDE Hanley/Leoncio
--- NOTE | 2018-05-05 10:03 | NUR ---
PHYSICAL THERAPY Patient presented to therapy this AM in side-lying position ,in position, with 6 liters of spO2 via nasal canula and O2 SAT measured and recorded as 96%. Patient has report of being tired and SOB. Patient agrees to therapy session. Patient was identified by name and . Patient transferred supine to sitting at EOB with MOD A X 2. Patient sat at EOB with CGA X 1 for 1.5 minutes and the nhad to lie back down due to SOB and fatigue. Patient's O2 SAT was measured and recorded as 84% and pulse at 111 IN SITTING at EOB. Patient was transferred back to supine in bed, at patient request, with MOD A X 2. Patient was left in L SIDE-LYING with head of bed slightly elevated, call light within reach, and bed alarm activated. Patient was 1:1 with this COMPUTER ENGINEERING TECHNICIAN for 12 minutes total. AMY CERVANTES COMPUTER ENGINEERING TECHNICIAN
[2018-05-05 11:03] LABS: HEMATOCRIT 35.1 % (37.0-47.0); HEMOGLOBIN 10.6 g/dl (12.0-16.0); MEAN CELL VOLUME 89.8 fl (81.0-99.0); MEAN CORPUSCULAR HGB 27.1 pg (27.0-31.0); MEAN CORPUSCULAR HGB CONC 30.2 g/dl (33.0-37.0); MEAN PLATELET VOLUME 10.4 fl (9.6-12.3); PLATELET COUNT AUTOMATED 220 10*3/uL (130-400); RED BLOOD COUNT 3.91 10*6/uL (4.10-5.10); RED CELL DISTRI WIDTH 17.1 % (0-14.5); WHITE BLOOD COUNT 16.8 10*3/uL (4.8-10.8)
[2018-05-05 11:04] LABS: BUN 24 mg/dl (7-24); CHLORIDE 104 mmol/L (98-107); CREATININE 0.37 mg/dL (0.55-1.02); SODIUM 139 mmol/L (136-145)
[2018-05-05 11:05] LABS: POTASSIUM 5.2 mmol/L (3.5-5.1)
[2018-05-05 11:35] LABS: STOMATOCYTE FEW; TOTAL CELLS COUNTED 100 #CELLS
[2018-05-05 11:36] LABS: OVALOCYTES FEW; PLATELET SUFFICIENCY NORMAL (NORMAL); POLYCHROMASIA SLIGHT
[2018-05-05 12:00] VITALS: BP 135/64
--- NOTE | 2018-05-05 12:50 | NUR ---
PT WAS SATING 84% ON 6 LITERS NC, CALLED RESPIRATORY, THEY PLACED PATIENT ON HER BIPAP MACHINE, SAO2 INCREASED TO 94%, PT RESTIGN. FAMILY AT BEDSIDE
--- NOTE | 2018-05-05 15:00 | NUR ---
PT REQUESTED TO COME OFF OF BIPAP AND BACK ON NC, RESPIRATORY AWARE
[2018-05-05 16:00] VITALS: BP 139/78
--- NOTE | 2018-05-05 16:06 | NUR ---
pt request morphine, headache, neck and back pain. see mar. will monitor for effectiveness
--- NOTE | 2018-05-05 17:13 | NUR ---
DR. SHAFER NOTIFIED THAT PROCALAMINE IS ON BACK ORDER AND WE DO NOT HAVE SUBSTITUTE FOR IT. HE WOULD LIKE PATIENT TO BE ENCOURAGED TO CONSUNME ORAL DIAETARY SUPPLEMENT AND ENCOURAGE DIETARY INTAKE.
--- NOTE | 2018-05-05 19:02 | NUR ---
PATIENT RESTING IN BED ON LEFT SIDE WITH EYES CLOSED. RESPIRATIONS ARE EASY AND REGULAR. NO DISTRESS IS NOTED. 6L VIA HIGH FLOW NC IN USE. BED IS IN LOWEST POSITION WITH WHEELS LOCKED. BED ALARM INTACT. CALL LIGHT IS WITHIN REACH. WILL CONTIUE TO MONITOR.
[2018-05-05 20:00] VITALS: BP 123/65
[2018-05-06] VITALS: BP 133/64
--- NOTE | 2018-05-06 02:15 | NUR ---
RESTING IN BED ON LEFT SIDE WITH EYES CLOSED. BIPAP IN USE CURRENTLY. NO DISTRESS IS NOTED. CALL LIGHT IS WITHIN REACH. BED ALARM INTACT. WILL MONITOR.
[2018-05-06 06:22] LABS: HEMATOCRIT 35.2 % (37.0-47.0); HEMOGLOBIN 10.4 g/dl (12.0-16.0); MEAN CELL VOLUME 92.1 fl (81.0-99.0); MEAN CORPUSCULAR HGB 27.2 pg (27.0-31.0); MEAN CORPUSCULAR HGB CONC 29.5 g/dl (33.0-37.0); MEAN PLATELET VOLUME 10.5 fl (9.6-12.3); RED BLOOD COUNT 3.82 10*6/uL (4.10-5.10); RED CELL DISTRI WIDTH 17.3 % (0-14.5); WHITE BLOOD COUNT 17.4 10*3/uL (4.8-10.8)
[2018-05-06 06:24] LABS: PLATELET COUNT AUTOMATED 306 10*3/uL (130-400)
[2018-05-06 06:32] LABS: ALBUMIN 2.8 gm/dl (3.1-4.5); BUN 28 mg/dl (7-24); CHLORIDE 101 mmol/L (98-107); POTASSIUM 4.5 mmol/L (3.5-5.1); SODIUM 138 mmol/L (136-145)
[2018-05-06 06:35] LABS: ALKALINE PHOSPHATASE 58 U/L (45-117); CREATININE 0.36 mg/dL (0.55-1.02); PHOSPHOROUS 2.1 mg/dL (2.5-4.9); SGOT/AST 22 IU/L (3-35); SGPT/ALT 40 U/L (12-78); TOTAL PROTEIN 5.6 gm/dL (6.4-8.2)
[2018-05-06 07:44] LABS: ROULEAUX SLIGHT; STOMATOCYTE FEW; TOTAL CELLS COUNTED 100 #CELLS
[2018-05-06 07:45] LABS: PLATELET SUFFICIENCY NORMAL (NORMAL)
[2018-05-06 08:00] VITALS: BP 108/68
--- NOTE | 2018-05-06 09:00 | NUR ---
Food And Nutrition Professor in to see patient. She is currently short term at [facility] and would like to return there upon discharge. workforce planner following.
--- NOTE | 2018-05-06 09:50 | NUR ---
OT NOTE Attempted to see pt this A.M. for OT session and upon arrival pt was under nursing care due to pulse ox being 79% while on 6L-O2 via NC. No treatment provided at this time. Will check back at a later time as able. TUNDE Hanley/Leoncio
--- NOTE | 2018-05-06 09:57 | NUR ---
TUG MASTER CALLED AT THIS TIME REGARDING LOW PULSE OX. PULSE OX READING 82-88% VIA 6LNC. RESPIRATORY ON FLOOR AND PATIENT PLACED BACK ON BIPAP. WILL CONTINUE TO MONITOR.
--- NOTE | 2018-05-06 09:59 | NUR ---
PULSE OX NOW MAINTAINING 92% VIA BIPAP. WILL MONITOR.
--- NOTE | 2018-05-06 10:22 | NUR ---
CONT.PULSE OX MAINTAINED. PULSE OX 96-97% VIA BIPAP. WILL MONITOR.
--- NOTE | 2018-05-06 10:56 | NUR ---
PHYSICAL THERAPY Patient's Nurse RN DEJAN was in checking on patient at the time this PHLEBOTOMY SUPPORT TECH arrived in patient's room and she said patient's O2 SAT was at 79% -- to 82% at rest. This is before any activity this AM. Patient was not treated this morning for this reason. AMY CERVANTES PTA
--- NOTE | 2018-05-06 10:58 | NUR ---
PHARMACY CALLED AT THIS TIME REGARDING PROCALAMINE. THEY WILL NOTIFIY ME THIS AFTERNOON IF A SHIPMENT HAS COME IN.
[2018-05-06 12:00] VITALS: BP 138/64
--- NOTE | 2018-05-06 12:00 | NUR ---
PATIENT REMAINS ON BIPAP. PULSE OX 98%. WILL CONTINUE TO MONITOR.
--- NOTE | 2018-05-06 13:17 | NUR ---
OT NOTE Attempted to see pt this P.M. for OT session and upon arrival pt was on the bipap. Will check back at a later time/date. TUNDE Hanley/Leoncio
--- NOTE | 2018-05-06 13:49 | NUR ---
FAMILY HERE AND UPDATED ON PLAN OF CARE.
--- NOTE | 2018-05-06 14:20 | NUR ---
BIPAP REMOVED AT THIS TIME. PT PLACED ON HIGH FLOW 6LNC. POX NOW 99% VIA 6L. WILL CONTINUE TO MONITOR.
--- NOTE | 2018-05-06 14:28 | NUR ---
PT GIVEN PO NORCO PER PRN ORDER FOR C/O GENERALIZED PAIN/DISCOMFORT. WILL MONITOR EFFECTIVENESS. CALL LIGHT WITHIN REACH.
--- NOTE | 2018-05-06 14:37 | NUR ---
PHYSICAL THERAPY Patient was on BI-PAP machine at 1:30 PM. Will check at later date and/or time. AMY CERVANTES CHECKERING MACHINE ADJUSTER
--- NOTE | 2018-05-06 15:30 | NUR ---
EARLIER MEDS RELIEVING PAIN AND ANXIETY PER PT.
[2018-05-06 16:00] VITALS: BP 140/77
--- NOTE | 2018-05-06 16:17 | NUR ---
ID IN TO SEE PATIENT.
--- NOTE | 2018-05-06 17:14 | NUR ---
IV FLUIDS INITIATED AT THIS TIME PER ORDER.
[2018-05-06 20:00] VITALS: BP 116/60
[2018-05-07] VITALS: BP 126/73
[2018-05-07 08:00] VITALS: BP 117/68
--- NOTE | 2018-05-07 10:00 | NUR ---
OT NOTE Pt was seen this A.M. 1:1 for 20 minute OT session. Upon arrival pt was supine in bed, pt identified by name and . Pt presented to therapy with continous 6L-O2 via NC which she remained on throughout entire session. At rest pt's SpO2 was 98%. Pt transferred supine to sit EOB with maxA X 2. While sitting EOB challenged pt's sitting balance and pt was able to maintain F- sitting balance with one LOB backwards that required maxA to correct. Sit to stand transfer completed from bed level with modA X 2 followed by stand pivot to bedside commode with modA X 2. Clothing mangement completed with maxA and toilet hygiene completed with supervision while seated. Pt then completed sit to stand back to the EOB with modA X 2. Pt then tolerated aprox 4 minutes of sitting upright on the EOB before SpO2 dropped to 92%. Pt then transferred back into bed sit to supine with maxA X 2. There she was left with call light in hand, tray table in place, and bed alarm activated for safety. Continue with rec D/C plan to SNF. TUNDE Hanley/Leoncio
--- NOTE | 2018-05-07 10:25 | NUR ---
PHYSICAL THERAPY Patient presented to therapy with in supine wit hhead of bbed elevated attempting to eat her breakfast. Patient is so weak she cannot cut up her egg herself. Patient is on 6 liters of spO2 via nasal canula. Patient agrees to therapy session. Patient was identified by name and . Patient performed supine to sitting at EOB transfer with MAX A X 2. Patient performed STS transfer and SPT to bedside commode with MOD A X 2. Patient cannot vice president global advertising sales upright posture due to forward flexed posture from back problems. Patient transferred back to sitting at EOB with MOD X 2. Patient transferred back to supine in bed with MAX A X 2. Patient was left in supine with head of bed elevated, call light within reach, and bed alarm activated. Patient to continue PT POC and progress as tolerated. Patient connected to wall with 6 liters of spO2 VIA NASAL CANULA. AMY CERVANTES SAMPLE WEAVER
[2018-05-07 11:35] LABS: BASO % 0.1 % (0.0-1.0); HEMATOCRIT 37.4 % (37.0-47.0); HEMOGLOBIN 10.5 g/dl (12.0-16.0); LYMPH # 1.1 10*3/uL (1.3-4.4); MEAN CELL VOLUME 94.9 fl (81.0-99.0); MEAN CORPUSCULAR HGB 26.6 pg (27.0-31.0); MEAN CORPUSCULAR HGB CONC 28.1 g/dl (33.0-37.0); MEAN PLATELET VOLUME 9.8 fl (9.6-12.3); MONO % 5.5 % (3.0-9.0); NEUT # 16.1 10*3/uL (2.3-7.9); NEUT % 87.5 % (47.0-73.0); PLATELET COUNT AUTOMATED 314 10*3/uL (130-400); RED BLOOD COUNT 3.94 10*6/uL (4.10-5.10); RED CELL DISTRI WIDTH 17.5 % (0-14.5); WHITE BLOOD COUNT 18.4 10*3/uL (4.8-10.8)
[2018-05-07 12:00] VITALS: BP 145/71
[2018-05-07 12:06] LABS: ALBUMIN 2.7 gm/dl (3.1-4.5); ALKALINE PHOSPHATASE 59 U/L (45-117); BUN 25 mg/dl (7-24); CHLORIDE 104 mmol/L (98-107); CREATININE 0.42 mg/dL (0.55-1.02); POTASSIUM 4.3 mmol/L (3.5-5.1); SGOT/AST 25 IU/L (3-35); SGPT/ALT 38 U/L (12-78); SODIUM 143 mmol/L (136-145); TOTAL PROTEIN 5.5 gm/dL (6.4-8.2)
--- NOTE | 2018-05-07 12:08 | NUR ---
Customs Brokerage Agent in to see patient. She is currently short term at [facility] and would like to return there upon discharge. digital media planner following.
--- NOTE | 2018-05-07 12:46 | NUR ---
PT GIVEN MORPHINE AT THIS TIME FOR PAIN. FAMILY AT BEDSIDE AND STATES THAT THEY WILL MONITOR PT FOR HALLUCINATIONS R/T MEDICATION.
--- NOTE | 2018-05-07 13:50 | NUR ---
MORPHINE EFFECTIVE. FAMILY DENIES PT HAVING ANY HALLUCINATIONS R/T MEDICATIONS. WILL CONTINUE TO MONITOR. CALL LIGHT IN REACH.
[2018-05-07 16:00] VITALS: BP 156/89
--- NOTE | 2018-05-07 19:55 | NUR ---
ASSUMED CARE OF PATIENT. PATIENT IS RESTING IN BED WITH EASY AND REGULAR RESPERS ON HIGHFLOW NASAL CANNULA. ASSESSMENT IS COMPLETE WITH NO S/S OF DISTRESS NOTED AT THIS TIME. PATIENT DOES C/O HEADACHE. BED IS LOW, LOCKED, ALARMED, AND CALL LIGHT IS WITHIN REACH. SEE SHIFT ASSESSMENT.
[2018-05-07 20:00] VITALS: BP 151/94
--- NOTE | 2018-05-07 21:35 | NUR ---
2200 MEDICATIONS GIVEN WELL PRN TYLENOL FOR HEADACHE. PATIENT TOLERATED WELL, CALL LIGHT IS WITHIN REACH. WILL MONITOR EFFECT.
--- NOTE | 2018-05-08 01:22 | NUR ---
PRN MORPHINE GIVEN AT THIS TIME FOR PATIENT C/O BACK, LEG, HIP, AND RIB PAIN RATING A 8/10. PATIENT TOLERATED WELL, CALL LIGHT IS WITHIN REACH.
--- NOTE | 2018-05-08 04:45 | NUR ---
PATIENT IS SLEEPING WITH EASY AND REGULAR RESPERS ON BIPAP. CALL LIGHT IS WITHIN REACH.
--- NOTE | 2018-05-08 05:40 | NUR ---
0600 MEDICATIONS GIVEN WELL PRN MORPHINE FOR C/O BACK, LEG AND HIP PAIN RATING A 8/10. CALL LIGHT IS WITHIN REACH.
[2018-05-08 05:56] LABS: ALBUMIN 2.7 gm/dl (3.1-4.5); ALKALINE PHOSPHATASE 59 U/L (45-117); BUN 25 mg/dl (7-24); CHLORIDE 101 mmol/L (98-107); CREATININE 0.32 mg/dL (0.55-1.02); PHOSPHOROUS 2.2 mg/dL (2.5-4.9); POTASSIUM 4.9 mmol/L (3.5-5.1); SGOT/AST 21 IU/L (3-35); SGPT/ALT 36 U/L (12-78); SODIUM 140 mmol/L (136-145); TOTAL PROTEIN 5.7 gm/dL (6.4-8.2)
[2018-05-08 06:03] LABS: BASO % 0.1 % (0.0-1.0); HEMATOCRIT 39.2 % (37.0-47.0); HEMOGLOBIN 10.9 g/dl (12.0-16.0); LYMPH # 1.3 10*3/uL (1.3-4.4); LYMPH % 6.3 % (27.0-41.0); MEAN CELL VOLUME 94.7 fl (81.0-99.0); MEAN CORPUSCULAR HGB 26.3 pg (27.0-31.0); MEAN CORPUSCULAR HGB CONC 27.8 g/dl (33.0-37.0); MONO # 1.3 10*3/uL (0.1-1.0); MONO % 6.3 % (3.0-9.0); NEUT # 17.9 10*3/uL (2.3-7.9); NEUT % 86.2 % (47.0-73.0); PLATELET COUNT AUTOMATED 368 10*3/uL (130-400); RED BLOOD COUNT 4.14 10*6/uL (4.10-5.10); RED CELL DISTRI WIDTH 17.4 % (0-14.5); WHITE BLOOD COUNT 20.8 10*3/uL (4.8-10.8)
[2018-05-08 07:57] VITALS: BP 145/77
--- NOTE | 2018-05-08 08:00 | NUR ---
ASSESSMENT COMPLETED. RESTING IN BED ON LEFT SIDE. CALL VICK IN REACH. NO SIGNS OF DISTRESS NOTED AT THIS TIME. ROMEL NIX SPJacquie-RCC
--- NOTE | 2018-05-08 08:17 | NUR ---
OT NOTE Attempted to see pt this A.M. for OT session and upon arrival pt was laying on her left side. Pt was requesting to rest at this time due to increased fatigue. Will check back at a later time/date. TUNDE Hanley/Leoncio
--- NOTE | 2018-05-08 08:31 | NUR ---
PHYSICAL THERAPY Patient wants us to come back in about an hour. Will check later. AMY CERVANTES PTAS
--- NOTE | 2018-05-08 08:45 | NUR ---
PT C/O OF HEADACHE RATING IT 8/10, MEDICATED WITH MORPHINE AT THIS TIME. WILL CONTINUE TO MONITOR FOR HALLUCINATIONS AND EFFECTIVENESS. GONZALO PAULINOCC
--- NOTE | 2018-05-08 09:00 | NUR ---
Spa Therapist in to see patient. She is currently short term at [facility] and would like to return there upon discharge. corporate planner following.
--- NOTE | 2018-05-08 09:26 | NUR ---
Clinical updates faxed to [facility] for review, patient is ok to return when medically stable for discharge.
--- NOTE | 2018-05-08 10:00 | NUR ---
UP TO BSC WITH PHYSICAL THERAPY. PT VOIDED WITHOUT DIFFICULT. PHYSICAL THERAPY DISPOSED OF URINE.
--- NOTE | 2018-05-08 10:02 | NUR ---
OT NOTE Pt was seen this A.M. 1:1 for 17 minute OT session. Upon arrival pt was supine in bed, pt identified by name and and had reports of increased fatigue. Pt presented to therapy with continous 6L-O2 via NC which she remained on throughout entire session. Pt transferred supine to sit EOB with maxA X 2. While sitting EOB challenged pt's sitting tolerance needed for increased I in self care tasks, pt was able to tolerate aprox 11 minutes of sitting upright on the EOB with SpO2 maintaining 96%. Challenged pt's sitting balance needed for increased I and enhanced safety while weight shifting, crossing midline, and bilateral integration. Pt was able to maintain F-/F sitting balance. Pt then returned sit to supine with maxA X 2. There she was left with call light in hand, tray table in place, and phone in reach. Continue with rec D/C plan to SNF. TUNDE Hanley/Leoncio
--- NOTE | 2018-05-08 10:06 | NUR ---
PHYSICAL THERAPY Patient presented to therapy in side-lying in position as usual with report of feeling tired and weak, but a little better. Patient is on 6 liters of spO2 via nasal canula. Patient O2 SAT was at 97% prior to therapy session. Patient performed Supine to sitting at EOB transfer with MOD A X 2. Patient sat at EOB with SBA wit h10 minutes total. Patient performed seated bilateral LE ther ex in all planes of movement 2 x 10 reps each in all planes of movement for strengthening the LEs in order to improve patient's functional mobility. Patient transferred back to supine in bed with MAX A X 2. Patient declined standing therapeutic activity due to fatigue. Patient was left in supine position wit hhead of bed elevated, call light within reach and bed alarm activated. Patient connected to wall outlet with 6 liters of spO2. Patient was 1:1 with this FARMWORKER DIVERSIFIED CROPS for 20 minutes total. AMY CERVANTES FARMWORKER DIVERSIFIED CROPS
--- NOTE | 2018-05-08 10:37 | NUR ---
PLSQL DEVELOPER CALLED THAT PT SpO2 88-89% ON MONITOR. PATIENT ON 6LHFNC, DENIES SOB AT THIS TIME. DR MULLIGAN AT BEDSIDE. PATIENT REFUSING TO GO ON BIPAP AT THIS TIME. PT APPEARS TO BE IN NO DISTRESS AT THIS TIME. WILL CONTINUE TO MONITOR.
--- NOTE | 2018-05-08 11:10 | NUR ---
RESPIRATORY AT BEDSIDE WITH PT. SpO2 93% ON 6L HFNC. PT DENIES SOB AT THIS TIME. REFUSES TO GO ON BIPAP AT THIS TIME. WILL CONTINUE TO MONITOR.
[2018-05-08 11:52] VITALS: BP 152/74
--- NOTE | 2018-05-08 12:00 | NUR ---
PATIENT RESTING COMFORTABLY WITH EYES CLOSED. PATIENT SpO2 90% ON PULSE OX- WINDOW CASER. PATIENT REFUSES TO GO ON BIPAP AT THIS TIME. DENIES ANY SHORTNESS OF BREATH. WILL MONITOR.
--- NOTE | 2018-05-08 12:55 | NUR ---
PATIENT RESTING WITH EYES CLOSED AT THIS TIME. SpO2 93% ON 6L HFNC. DENIES SHORTNESS OF BREATH AT THIS TIME. PATIENT IS NOT READY TO EAT LUNCH AT THIS TIME. CALL VICK WITHIN REACH. CONTINUE TO MONITOR.
--- NOTE | 2018-05-08 13:01 | NUR ---
New orders received from Dr. Park for palliative care consult.
--- NOTE | 2018-05-08 13:10 | NUR ---
NEW CONSULT FOR [facility]ALLIATIVE CARE [facility] SPOKE WITH
--- NOTE | 2018-05-08 13:36 | NUR ---
PT. IS LYING ON BACK. CALL VICK IN REACH. BED IN LOWEST POSITION. REPORT GIVEN TO KOREY. ROMEL NIX-SPN-RCC
[2018-05-08 14:06] LABS: BILIRUBIN NEGATIVE (NEGATIVE); BLOOD 2+ (NEGATIVE); CLARITY CLEAR (CLEAR); COLOR YELLOW (YELLOW); GLUCOSE NEGATIVE (NEGATIVE); KETONE NEGATIVE (NEGATIVE); LEUKO ESTERASE NEGATIVE (NEGATIVE); NITRITE NEGATIVE (NEGATIVE); SPECIFIC GRAVITY 1.025 (1.005-1.030); UROBILINOGEN 0.2 E.U./dl (0.2-1.0)
[2018-05-08 14:18] LABS: BACTERIA 2+; HYALINE CAST 0-2; MUCOUS 1+; RBC 21-30 rbc/hpf (0-2); WHITE BLOOD CELL CAST 0-2
--- NOTE | 2018-05-08 15:17 | NUR ---
OCCUPATIONAL THERAPY CO-SIGN I approve of the Occupational Therapy notes written above. YUE DODD OTR/Leoncio
[2018-05-08 16:00] VITALS: BP 147/74
--- NOTE | 2018-05-08 19:30 | NUR ---
PATIENT SITTING UP IN BED, NO DISTRESS NOTED. PATIENT HAS NO COMPLAINTS AT THIS TIME. PATIENT LEFT WITH CALL LIGHT IN REACH.
[2018-05-08 20:00] VITALS: BP 153/77
--- NOTE | 2018-05-08 20:25 | NUR ---
24 HR chart check completed.
[2018-05-09] VITALS: BP 151/89
[2018-05-09 05:46] LABS: BASO % 0.1 % (0.0-1.0); EOS % 0.1 % (1.0-4.0); HEMOGLOBIN 9.3 g/dl (12.0-16.0); LYMPH # 0.8 10*3/uL (1.3-4.4); LYMPH % 5.2 % (27.0-41.0); MEAN CELL VOLUME 92.7 fl (81.0-99.0); MEAN CORPUSCULAR HGB CONC 29.2 g/dl (33.0-37.0); MEAN PLATELET VOLUME 9.8 fl (9.6-12.3); MONO % 6.6 % (3.0-9.0); NEUT # 13.1 10*3/uL (2.3-7.9); NEUT % 86.9 % (47.0-73.0); PLATELET COUNT AUTOMATED 299 10*3/uL (130-400); RED BLOOD COUNT 3.44 10*6/uL (4.10-5.10); RED CELL DISTRI WIDTH 17.4 % (0-14.5); WHITE BLOOD COUNT 15.1 10*3/uL (4.8-10.8)
[2018-05-09 05:49] LABS: HEMATOCRIT 31.9 % (37.0-47.0)
[2018-05-09 06:15] LABS: ALBUMIN 2.5 gm/dl (3.1-4.5); BUN 22 mg/dl (7-24); CHLORIDE 99 mmol/L (98-107); CREATININE 0.29 mg/dL (0.55-1.02); PHOSPHOROUS 2.4 mg/dL (2.5-4.9); POTASSIUM 4.8 mmol/L (3.5-5.1); SGOT/AST 21 IU/L (3-35); SGPT/ALT 32 U/L (12-78); SODIUM 140 mmol/L (136-145)
[2018-05-09 06:17] LABS: ALKALINE PHOSPHATASE 51 U/L (45-117)
[2018-05-09 08:00] VITALS: BP 136/78
[2018-05-09 12:00] VITALS: BP 143/95
[2018-05-09 16:00] VITALS: BP 140/72
--- NOTE | 2018-05-09 16:31 | NUR ---
REFERRAL MADE TO COMMUNITY CHIEF CUSTOMER OFFICER. THEY WILL BE IN TO SPEAK WITH THE PT IN THE AM.
--- NOTE | 2018-05-09 16:31 | NUR ---
FAMILY UPDATED ON POC X3 TODAY.
[2018-05-09 20:00] VITALS: BP 146/74
[2018-05-10] VITALS: BP 146/76
--- NOTE | 2018-05-10 02:05 | NUR ---
NO PROCALIMINE IS AVAILIBLE AT THIS TIME. WILL CALL DR. MULLIGAN IN THE AM. RESIDENT IS IN AGREEMENT WITH CALLING IN THE AM. WILL CONTUNIE TO MONITOR PT.
[2018-05-10 06:13] LABS: HEMATOCRIT 32.2 % (37.0-47.0); HEMOGLOBIN 9.3 g/dl (12.0-16.0); MEAN CELL VOLUME 92.5 fl (81.0-99.0); MEAN CORPUSCULAR HGB 26.7 pg (27.0-31.0); MEAN CORPUSCULAR HGB CONC 28.9 g/dl (33.0-37.0); MEAN PLATELET VOLUME 9.8 fl (9.6-12.3); PLATELET COUNT AUTOMATED 318 10*3/uL (130-400); RED BLOOD COUNT 3.48 10*6/uL (4.10-5.10); RED CELL DISTRI WIDTH 17.6 % (0-14.5); WHITE BLOOD COUNT 17.3 10*3/uL (4.8-10.8)
[2018-05-10 06:41] LABS: BUN 21 mg/dl (7-24); CHLORIDE 99 mmol/L (98-107); CREATININE 0.33 mg/dL (0.55-1.02); PHOSPHOROUS 2.5 mg/dL (2.5-4.9); POTASSIUM 4.6 mmol/L (3.5-5.1); SODIUM 141 mmol/L (136-145)
--- NOTE | 2018-05-10 06:41 | NUR ---
DR. MULLGIAN MADE AWARE THAT PT IS NO LONGER RECIEVING PRCALIMINE. ORDERED ENSURE TO BE DRANK AFTER EACH MEAL. WILL CONTINUE TO MONITOR PT
[2018-05-10 06:50] LABS: PLATELET SUFFICIENCY NORMAL (NORMAL); TOTAL CELLS COUNTED 100 #CELLS
--- NOTE | 2018-05-10 07:53 | NUR ---
24 HR chart check completed.
[2018-05-10 08:00] VITALS: BP 138/70
--- NOTE | 2018-05-10 09:00 | NUR ---
RESTING WITH HOB ELEVATED. RESPIRATIONS EASY. LUNGS DIMINISHED WITH WHEEZES AND RHONCHI. PULSE OX 100% 6L HIGH FLOW O2. LOOSE COUGH, SPECIMEN OBTAINED AND SENT FOR CULTURE. TRACE BLE EDEMA. FOOT DROP NOTED. OFFERED AND EDUCATED REGARDING TEDS, DECLINED. PROCALAMINE HUNG PER ORDER. CALL LIGHT WITHIN REACH. NO VOICED COMPLAINTS. BED ALARM MAINTAINED FOR SAFETY
[2018-05-10 12:00] VITALS: BP 142/80; BP 142/92
--- NOTE | 2018-05-10 12:58 | NUR ---
CALLED DR MULLIGAN AND INFORMED HIM THAT PTS UC IS POSITIVE FOR VRE. ORDER FOR PO ZYVOX 600 MG BID FOR 1 WEEK RECEIVED
--- NOTE | 2018-05-10 14:45 | NUR ---
SPOKE WITH PHARMACIST NICO WHO CONTACTED DR SHAFER, ORDERS RECEIVED TO D/C PROCALAMINE AND TPN
[2018-05-10 16:00] VITALS: BP 132/80; BP 133/89
--- NOTE | 2018-05-10 17:00 | NUR ---
RESTING IN BED EATING DINNER WITHOUT DIFFICULTY. NO VOICED COMPLAINTS. CALL LIGHT WITHIN REACH
--- NOTE | 2018-05-10 17:00 | NUR ---
DR MULLIGAN HERE TO ASSESS PATIENT AND DISCUSS PLAN OF CARE
[2018-05-10 20:00] VITALS: BP 122/70
--- NOTE | 2018-05-10 22:00 | NUR ---
RESTING IN BED WITH NO DISTRESS NOTED. RESPIRATIONS EASY. O2 IN USE. CALL LIGHT WITHIN REACH. NO VOICED COMPLAINTS
--- NOTE | 2018-05-10 22:41 | NUR ---
PT. REFUSED BIPAP AT THIS TIME.
[2018-05-11] VITALS: BP 128/69
--- NOTE | 2018-05-11 07:30 | NUR ---
ASSUMED CARE OF THE PATIENT. RECEIVED REPORT FROM SOFI SMITH RN. PATIENT RESTING COMFORTABLY IN HER BED AT THIS TIME. NO S/S OF DISTRESS. CALL LIGHT WTIHIN REACH.
--- NOTE | 2018-05-11 08:14 | NUR ---
PHYSICAL THERAPY Patient is eating breakfast at the moment. JENNIFER CERVANTES PTA
--- NOTE | 2018-05-11 08:55 | NUR ---
OT NOTE Pt was seen this A.M. 1:1 for 30 minute OT session. Upon arrival pt was supine in bed. Pt identified by name and . Pt had no complaints at this time and presented to therapy with continous 6L-O2 via NC which she remained on throughout entire session. Pt's resting SpO2 was 98%. Pt transferred supine to sit EOB with modA. Sit to stand then completed from bed level with modA followed by stand pivot to bedside commode with modA. Clothing managmenet completed with modA and toilet hygiene completed with Emma for aure care. While sitting on the commode pt washed her face and chest with Emma after set-upA. Pt required frequent rest breaks throughout due to feeling SOB and fatigue, SpO2 ranged between 98%-95%. Pt then completed sit to stand from bedside commode with modA followed by stand pivot to EOB with modA. While sitting EOB challenged pt's sitting balance needed for increased I and enhanced safety in self care tasks. Pt was able to maintain F+ sitting balance while weight shifting and reaching over various planes. Pt tolerated aprox 20 minutes of sitting upright before requesting to lay down due to fatigue. Pt transferred back into bed sit to supine with maxA X 2. There she was left with call light in hand, tray table in place, and bed alarm activated for safety. Continue with rec D/C plan to SNF. TUNDE Hanley/Leoncio
--- NOTE | 2018-05-11 09:00 | NUR ---
Rfid Systems Architect in to see patient. She is currently short term at [facility] and would like to return there upon discharge. wedding planner following. Notified Dr. Park that patient is cleared from pulmonology standpoint per Dr. Gibbons.
--- NOTE | 2018-05-11 09:14 | NUR ---
PHYSICAL THERAPY Patient presented to therapy in supine with 6 liters of spO2 with O2 SAT at 98%. Patient head of bed elevated and report of feeling a little tired , but overall better. Patient agrees to therapy session. Patient was identified by arvind and KALEY. Patient performed supine to sitting at EOB with MOD A X 1. Patient STS transfer with MIN A X 2. Patient SPT transfer to bedside commode with MOD A X 1. Patient later sat at EOB and performed seated bilateral LE ther ex 2 x 10 reps each in all planes of movement for strengthening the LEs in order to improve patient's functional mobility. Patient STS again with MIN A X 1. Patient stood at EOB with MOD A X 2 for 25 seconds total and then fatigued and had to sit down. Patient was 7 liters of spO2 with all therapy activity. Patient dropped no lower than 94% O2 SATURATION and pulse climbed to 144 with standing tolerance. Patient transferred back to supine in bed with head of bed elevated, call light within reach, and bed alarm activated. Patient connected to wall outlet with 6 liters of spO2. Patient was 1:1 with this [employer] FLATBED DRIVER for 24 minutes total. AMY CERVANTES [employer]
--- NOTE | 2018-05-11 09:37 | NUR ---
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 patient is ok to return when medically stable for discharge.
[2018-05-11 12:00] VITALS: BP 171/82
[2018-05-11 12:44] LABS: HEMATOCRIT 31.2 % (37.0-47.0); HEMOGLOBIN 9.3 g/dl (12.0-16.0); MEAN CELL VOLUME 91.2 fl (81.0-99.0); MEAN CORPUSCULAR HGB 27.2 pg (27.0-31.0); MEAN CORPUSCULAR HGB CONC 29.8 g/dl (33.0-37.0); MEAN PLATELET VOLUME 9.7 fl (9.6-12.3); PLATELET COUNT AUTOMATED 389 10*3/uL (130-400); RED BLOOD COUNT 3.42 10*6/uL (4.10-5.10); RED CELL DISTRI WIDTH 17.8 % (0-14.5); WHITE BLOOD COUNT 26.5 10*3/uL (4.8-10.8)
[2018-05-11 12:49] LABS: CHLORIDE 101 mmol/L (98-107); POTASSIUM 4.4 mmol/L (3.5-5.1); SODIUM 141 mmol/L (136-145)
[2018-05-11 12:53] LABS: BUN 31 mg/dl (7-24)
[2018-05-11 13:24] VITALS: BP 124/70
[2018-05-11 13:24] LABS: PLATELET SUFFICIENCY NORMAL (NORMAL); STOMATOCYTE MODERATE; TOTAL CELLS COUNTED 100 #CELLS
[2018-05-11 15:56] VITALS: BP 139/54
[2018-05-11] MEDS ORDERED: MEDROL DOSEPAK4 MG PO (16:26)
[2018-05-11] MEDS ORDERED: XANAX0.5 MG PO (16:26)
--- NOTE | 2018-05-11 17:44 | NUR ---
PATIENT LEFT FLOOR VIA AMBULANCE FOR D/C TO [facility]. PAPERWORK WITH PATIENT.
--- NOTE | 2018-05-12 07:27 | NUR ---
PHYSICAL THERAPY CO-SIGN I approve of the Phyical Therapy notes written above. AUGUSTA CROWE PT
--- NOTE | 2018-05-12 07:41 | NUR ---
OCCUPATIONAL THERAPY CO-SIGN I approve of the Occupational Therapy notes written above. YUE DODD OTR/Leoncio
[2018-05-22] MEDS ORDERED: ELIQUIS5 M1 PO (19:18)
[2018-05-22] MEDS ORDERED: ACETAMINOPHEN500 M4 PO (19:25)
[2018-05-23] MEDS ORDERED: LEXAPRO20 MG PO (09:23)
[2018-05-25] MEDS ORDERED: IBU800 M2 PO (09:11)
[2018-06-02] MEDS ORDERED: HALOPERIDOL5 MG/1 M1 IV (18:21)
== END 2018-05-11 17:44 | disposition other institution (70) | DRG 871 ==
LOC: ED 10:19 → ICCU 14:55 → EDHOLD 14:55 → ICCU 14:57 → 4E 05-04 14:23
PROVIDERS: Internal Medicine; Physician Assistant; Student in an Organized Health Care Education/Training Program; ADMIT Internal Medicine
PROC: 5A09357 Assistance with Respiratory Ventilation, Less than 24 Consecutive Hours, Continuous Positive Airway Pressure (ICD-10-PCS; principal; 2018-05-02)
PROC: 5A09357 Assistance with Respiratory Ventilation, Less than 24 Consecutive Hours, Continuous Positive Airway Pressure (ICD-10-PCS; 2018-05-03)
PROC: 5A09357 Assistance with Respiratory Ventilation, Less than 24 Consecutive Hours, Continuous Positive Airway Pressure (ICD-10-PCS; 2018-05-04)
PROC: 5A09357 Assistance with Respiratory Ventilation, Less than 24 Consecutive Hours, Continuous Positive Airway Pressure (ICD-10-PCS; 2018-05-05)
PROC: 5A09357 Assistance with Respiratory Ventilation, Less than 24 Consecutive Hours, Continuous Positive Airway Pressure (ICD-10-PCS; 2018-05-06)
PROC: 5A09357 Assistance with Respiratory Ventilation, Less than 24 Consecutive Hours, Continuous Positive Airway Pressure (ICD-10-PCS; 2018-05-07)
DX: A41.9 Sepsis, unspecified organism (principal); J15.6 Pneumonia due to other Gram-negative bacteria; J96.21 Acute and chronic respiratory failure with hypoxia; J96.22 Acute and chronic respiratory failure with hypercapnia; E43 Unspecified severe protein-calorie malnutrition; J44.1 Chronic obstructive pulmonary disease with (acute) exacerbation; Z68.1 Body mass index [BMI] 19.9 or less, adult; I38 Endocarditis, valve unspecified; B37.0 Candidal stomatitis; F33.1 Major depressive disorder, recurrent, moderate; J44.0 Chronic obstructive pulmonary disease with (acute) lower respiratory infection; M48.54XA Collapsed vertebra, not elsewhere classified, thoracic region, initial encounter for fracture; G89.29 Other chronic pain; M54.9 Dorsalgia, unspecified; F41.1 Generalized anxiety disorder; G25.81 Restless legs syndrome; G43.909 Migraine, unspecified, not intractable, without status migrainosus; I10 Essential (primary) hypertension; K21.0 Gastro-esophageal reflux disease with esophagitis; R62.7 Adult failure to thrive; Z66 Do not resuscitate; K59.03 Drug induced constipation; T40.2X5A Adverse effect of other opioids, initial encounter; G83.9 Paralytic syndrome, unspecified; J20.8 Acute bronchitis due to other specified organisms; M81.0 Age-related osteoporosis without current pathological fracture; T38.0X5A Adverse effect of glucocorticoids and synthetic analogues, initial encounter; Z86.718 Personal history of other venous thrombosis and embolism; Y92.89 Other specified places as the place of occurrence of the external cause; Z88.1 Allergy status to other antibiotic agents; Z87.891 Personal history of nicotine dependence; Z82.5 Family history of asthma and other chronic lower respiratory diseases; Z82.49 Family history of ischemic heart disease and other diseases of the circulatory system; Z80.52 Family history of malignant neoplasm of bladder; Z83.3 Family history of diabetes mellitus; Z79.52 Long term (current) use of systemic steroids